=== PATIENT | male | born 1950 | race Caucasian/White ===

== ENCOUNTER → 2017-06-24 | Outpatient (CLI) | payer OTHER ==
[2015-11-13 16:49] VITALS: BP 164/72
--- NOTE | 2017-06-24 09:41 | US ---
History: Right upper quadrant pain Study: Ultrasound of the abdomen Findings: The liver and spleen are normal in size without demonstration of a mass. The gallbladder is normal in size without wall thickening or stone or sludge. The common hepatic duct measures 5.2 mm diameter. The pancreas is unremarkable. The right kidney measures 11 x 5.7 x 4.8 cm and the left kidney measures 11 x 6 x 4.7 cm. There is no hydronephrosis or renal mass. There is no aortic aneurysm. There is no free fluid. Impression: Negative Reported By:
== END ==
LOC: RAD 08:43
PROVIDERS: ATTEND Nurse Practitioner Family
DX: R10.11 Right upper quadrant pain (principal); R10.31 Right lower quadrant pain; R19.09 Other intra-abdominal and pelvic swelling, mass and lump
CPT/HCPCS: 76700

== ENCOUNTER → 2017-07-01 | Outpatient (CLI) | payer OTHER ==
[2015-11-13 16:49] VITALS: BP 164/72
--- NOTE | 2017-07-01 12:01 | CT ---
HISTORY: Right upper quadrant pain, nausea Study: CT abdomen and pelvis without contrast Comparison: CT 11/22/2012, ultrasound 06/24/2017 Technique: Multiple axial images of the abdomen and pelvis were obtained without IV contrast. Dose reduction t echniques including Automated Exposure Control (AEC) and adjustment of mA and kV were utilized. Findings: Please note evaluation is limited without use of IV contrast. The visualized lung bases are clear. There is circumferential thickening of distal esophagus. There i s extensive calcified plaque in the coronary arteries. Normal-sized heart. The liver, spleen, pancre as, kidneys, and adrenal glands are unremarkable in their unenhanced CT appearance. The gallbladder i s normal. No renal calculi or obstructive uropathy identified. No free intraperitoneal air. No evidence of intestinal obstruction or inflammation. The appendix is n ormal. No free fluid is seen. There are colonic diverticula present distally without evidence of acut e inflammation. No free fluid identified. The osseous structures are intact. Calcified plaque is seen in the aorta and branch vessels. No patho logically enlarged lymph nodes are identified. Normal urinary bladder. IMPRESSION: 1. There is thickening of the distal esophagus, correlate clinically. 2. No acute findings within the abdomen or pelvis. Reported By:
== END ==
LOC: RAD 08:48
PROVIDERS: ATTEND Nurse Practitioner Family
DX: R19.09 Other intra-abdominal and pelvic swelling, mass and lump (principal); R10.11 Right upper quadrant pain; R10.31 Right lower quadrant pain
CPT/HCPCS: 74176; A4222

== ENCOUNTER → 2017-07-11 | Outpatient (CLI) | payer OTHER ==
[2015-11-13 16:49] VITALS: BP 164/72
--- NOTE | 2017-07-11 13:48 | NM ---
HISTORY: 66-year-old male with right upper quadrant pain swelling and tenderness. Study: Nuclear medicine HIDA scan with ejection fraction Comparison: None. Technique: Multiple scintigraphic images of the abdomen were obtained the intravenous administration of 5.5 mCi of technetium labeled Choletec. Following distention of the gallbladder with radiotracer, 8 oz of Ensure was given orally. An estima yoana gallbladder ejection fraction was calculated based on the physiologic response of this infusion. Findings: Homogeneous uptake of radiotracer is seen throughout the liver. This intrabiliary ductal system is o bserved normally. The common hepatic and common bile duct grossly appear unremarkable with normal bi liary-bowel transit. The gallbladder is observed to fill normally. After administration of Ensure p.o., low gallbladder ejection fraction of 7% (normal > 35%) was obser jesse. IMPRESSION: Decreased gallbladder ejection fraction: 7 %, compatible with chronic cholecystitis. Reported By:
== END ==
LOC: RAD 10:14
PROVIDERS: ATTEND Nurse Practitioner Family
DX: R10.11 Right upper quadrant pain (principal); R10.31 Right lower quadrant pain; R11.2 Nausea with vomiting, unspecified
CPT/HCPCS: 78227; A9537

== ENCOUNTER → 2017-10-05 | Outpatient (CLI) | payer OTHER ==
[2015-11-13 16:49] VITALS: BP 164/72
[2017-10-05 13:07] LABS: BASOPHILS # (AUTO) 0.1 X10^3/uL (0.0-0.1); BASOPHILS % (AUTO) 1.2 % (0.2-1.0); EOSINOPHILS # (AUTO) 0.2 x10^3/uL (0.0-0.2); HEMOGLOBIN 16.5 g/dL (13.5-18.0); MEAN CORPUSCULAR HEMOGLOBIN 30.8 pg (27.0-34.0); MONOCYTES # (AUTO) 1.2 x10^3/uL (0.3-0.8); RED BLOOD COUNT 5.36 X10^6/uL (4.7-6.0)
[2017-10-05 13:15] LABS: EOSINOPHILS % (AUTO) 1.4 % (0.9-2.9); HEMATOCRIT 47.1 % (42.0-54.0); LYMPHOCYTES # (AUTO) 2.4 X10^3/uL (1.3-2.9); MEAN CORPUSCULAR HGB CONC 35.1 g/dL (33.0-35.0); MEAN CORPUSCULAR VOLUME 87.9 fL (80.0-100.0); MEAN PLATELET VOLUME 7.1 fL (7.4-11.0); MONOCYTES % (AUTO) 10.3 % (0.0-13.0); NEUTROPHILS % (AUTO) 67.1 % (42.0-75.0); PLATELET COUNT 176 X10^3/uL (150.0-450.0); RED CELL DISTRIBUTION WIDTH 17.1 % (11.6-16.5); WHITE BLOOD COUNT 11.9 X10^3/uL (3.6-10.0)
[2017-10-05 13:20] LABS: ALANINE AMINOTRANSFERASE 38 Units/L (12-78); ALBUMIN 3.6 g/dL (3.4-5.0); ALKALINE PHOSPHATASE 55 Units/L (46-116); ASPARTATE AMINO TRANSFERASE 24 Units/L (15-37); BLOOD UREA NITROGEN 10 mg/dL (7-18); CALCIUM 9.2 mg/dL (8.5-10.1); CARBON DIOXIDE 29.7 mmol/L (21-32); CHLORIDE 98 mmol/L (98-107); CREATININE 0.99 mg/dL (0.70-1.30); SODIUM 136 mmol/L (136-145); TOTAL PROTEIN 7.1 g/dL (6.4-8.2); eGFR BLACK RACES > 60 (>60); eGFR NON BLACK RACES > 60 (>60)
== END | disposition home or self-care (01) | DRG 951 ==
LOC: LAB 12:29
DX: Z01.818 Encounter for other preprocedural examination (principal); Z01.810 Encounter for preprocedural cardiovascular examination; Z79.899 Other long term (current) drug therapy; Z11.8 Encounter for screening for other infectious and parasitic diseases; I10 Essential (primary) hypertension; E11.9 Type 2 diabetes mellitus without complications; G47.39 Other sleep apnea; I51.9 Heart disease, unspecified; E78.00 Pure hypercholesterolemia, unspecified; N20.0 Calculus of kidney; K27.9 Peptic ulcer, site unspecified, unspecified as acute or chronic, without hemorrhage or perforation; I25.10 Atherosclerotic heart disease of native coronary artery without angina pectoris; M06.80 Other specified rheumatoid arthritis, unspecified site; Z86.14 Personal history of Methicillin resistant Staphylococcus aureus infection
CPT/HCPCS: 36415; 80053; 85025; 87640; 87641; 93005; 93010

== ENCOUNTER 2019-03-24 13:42 | Observation (INO) ==
[2019-03-24 13:49] VITALS: BMI 22.6
[2019-03-24] MEDS ORDERED: ZOFRAN INJ 4 MG VIAL IVP ONE (14:01)
[2019-03-24] MEDS ORDERED: ZOFRAN INJ 4 MG VIAL ONE (14:19)
--- NOTE | 2019-03-24 14:29 | DR.GENAD ---
HPI Time Seen Time Seen by Provider: 03/24/19 14:01 PCP Primary Care Physician: tim saavedra Complaint/Symptoms Chief Complaint Doctors Comments: A 68 y/o female presenting with vomiting for past few days. He has a hx. of constipation and had taken some Linzess yesterday. Diarrhea started yesterday. He has some all over abd. pain but no fever. Chief Complaint:: patient has been constipated for several months, and has been vomiting and diahrrea for several days. Nurses notes reviewed Nurses Notes Review: Yes Source History Provided: Patient Mode of Arrival Mode of Arrival: Ambulatory Timing Onset of Chief Complaint: 03/21/19 Came on: Gradually Modifying Factors Worsens:: nothing Improves:: nothing PMH PMH Past Medical History: Yes Past Medical History: Arthritis, Coronary Artery Disease, Diabetes, Hypertension, Kidney Stones and PR Past Surgical History: Yes Surgical History: Angioplasty/Stents and Joint Replacement Family History History of Family Medical Conditions: Yes Family Medical History: PR, Sudden Cardiac and Hypertension Social History Does patient currently use any type of tobacco product: No Have you used tobacco products in the last 12 months: No Type of Tobacco Use: None Does any household member use tobacco: No Alcohol Use: Rarely Do you use any recreational Drugs:: No Lives With: Family Lives Where: Home infectious screening In the last 2 months have you had wt loss of >10#?: NO Have you had fever, night sweats or hemotysis?: No Have you traveled outside the country in the last 6 months?: No Isolation: Standard ROS Review of Systems Constitutional: No Symptoms Reported Eyes: No Symptoms Reported ENTM: No Symptoms Reported Respiratoy: No Symptoms Reported Cardiovascular: No Symptoms Reported Gastrointestinal/Abdominal: Abdominal Pain, Constipation, Diarrhea, Nausea and Vomiting Genitourinary: No Symptoms Reported Neurological: No Symptoms Reported Musculoskeletal: No Symptoms Reported Integumentary: No Symptoms Reported Hematologic/Lymphatic: No Symptoms Reported Endocrine: No Symptoms Reported Psychiatric: No Symptoms Reported PE Vital Signs Vitals: Temperature 98.6 F Pulse Rate 130 Respiratory Rate 18 Blood Pressure [Right Arm] 147/65 Blood Pressure [Left Arm] 115/58 Blood Pressure 153/103 O2 Sat by Pulse Oximetry 98 General Limitations: No Limitations General Appearance: Alert and In No Apparent Distress Head Head Exam: Normal Inspection, Atraumatic and Normocephalic Eyes Eye exam: Normal Appearance and EOMI ENT ENT Exam: Normal Exam, Normal Oropharynx and Normal External Ear Exam Neck Neck Exam: Normal Inspection, Full ROM and Trachea Midline Chest Chest Inspection: Normal Inspection and Symmetric Chest Wall Rise Respiratory Respiratory Exam: Normal Lung Sounds Bilat Cardiovascular Cardiovascular Exam: Regular Rate, Normal Rhythm, Normal Heart Sounds, +S1 and +S2 Abdominal Exam Abdominal Exam: Normal Inspection, Normal Bowel Sounds, Soft and Tenderness (mild diffusely); negative Distention, Guarding, Rebound, Rigidity, Dimnished Bowel Sounds, Hyperactive Bowel Sounds, Hypoactive Bowel Sounds, Organomegaly, Trauma, Incision, Ascites, Mass, Bruit, Pulsatile Mass and Hernia Extremities Extremities Exam: Normal Inspection and Full ROM Back Back Exam: Normal Inspection Neurologic Neurological Exam: Alert and Oriented X3 Psychiatric Psychiatric Exam: Normal Affect and Normal Mood Skin Skin Exam: Dry and Normal Color COURSE Reevaluation 1st: Improved 2nd: Improved Education/Counseling Education/Counseling: Patient, Family, Education and Counseling Educated On: Treatment, Diagnosis, Prognosis and Needs for Follow Up ROR Labs Reviewed Laboratory Results Reviewed?: Yes Result Diagrams: 03/24/19 14:06 03/24/19 14:06 Laboratory: WBC 12.6 X10^3/uL (3.6-10.0) H 03/24/19 14:06 RBC 6.62 X10^6/uL (4.7-6.0) H 03/24/19 14:06 Hgb 20.3 g/dL (13.5-18.0) H* 03/24/19 14:06 Hct 57.8 % (42.0-54.0) H* 03/24/19 14:06 MCV 87.3 fL (80.0-100.0) 03/24/19 14:06 MCH 30.6 pg (27.0-34.0) 03/24/19 14:06 MCHC 35.1 g/dL (33.0-35.0) H 03/24/19 14:06 RDW 17.5 % (11.6-16.5) H 03/24/19 14:06 Plt Count 163 X10^3/uL (150.0-450.0) 03/24/19 14:06 MPV 6.8 fL (7.4-11.0) L 03/24/19 14:06 Neut % (Auto) 77.8 % (42.0-75.0) H 03/24/19 14:06 Lymph % (Auto) 10.2 % (21.0-51.0) L 03/24/19 14:06 [place] % (Auto) 11.2 % (0.0-13.0) 03/24/19 14:06 Eos % (Auto) 0.2 % (0.9-2.9) L 03/24/19 14:06 Baso % (Auto) 0.6 % (0.2-1.0) 03/24/19 14:06 Neut # (Auto) 9.8 x10^3/uL (2.2-4.8) H 03/24/19 14:06 Lymph # (Auto) 1.3 X10^3/uL (1.3-2.9) 03/24/19 14:06 [place] # (Auto) 1.4 x10^3/uL (0.3-0.8) H 03/24/19 14:06 Eos # (Auto) 0.0 x10^3/uL (0.0-0.2) 03/24/19 14:06 Baso # (Auto) 0.1 X10^3/uL (0.0-0.1) 03/24/19 14:06 Absolute Nucleated RBC 0.5 /100WBC 03/24/19 14:06 Sodium 130 mmol/L (136-145) L 03/24/19 14:06 Corrected Sodium 133 mmol/L (136-145) L 03/24/19 14:06 Potassium 4.1 mmol/L (3.5-5.1) 03/24/19 14:06 Chloride 95 mmol/L (98-107) L 03/24/19 14:06 Carbon Dioxide 23.1 mmol/L (21-32) 03/24/19 14:06 BUN 19 mg/dL (7-18) H 03/24/19 14:06 Creatinine 1.22 mg/dL (0.70-1.30) 03/24/19 14:06 Est GFR (MDRD) Af Amer > 60 (>60) 03/24/19 14:06 Est GFR (MDRD) Non-Af > 60 (>60) 03/24/19 14:06 Glucose 217 mg/dL (65-99) H 03/24/19 14:06 Calcium 9.2 mg/dL (8.5-10.1) 03/24/19 14:06 Corrected Calcium TNP 03/24/19 14:06 Total Bilirubin 0.70 mg/dL (0.2-1.0) 03/24/19 14:06 AST 24 Units/L (15-37) 03/24/19 14:06 ALT 26 Units/L (12-78) 03/24/19 14:06 Alkaline Phosphatase 68 Units/L (46-116) 03/24/19 14:06 Total Protein 7.8 g/dL (6.4-8.2) 03/24/19 14:06 Albumin 3.7 g/dL (3.4-5.0) 03/24/19 14:06 Globulin 4.1 g/dL (2.5-4.5) 03/24/19 14:06 Albumin/Globulin Ratio 0.9 Ratio (1.1-2.1) L 03/24/19 14:06 Amylase 87 Units/L (25-115) 03/24/19 14:06 Lipase 216 Units/L (73-393) 03/24/19 14:06 Other Results Comments: Non contrasted CT Scan of the abd./pelvis: No acute inflamma tory process. Distal colonic diverticulosis without diverticulitis. Opioid Opioid Risk Tool Total: 0 Total Score Risk Category: Low Risk Copyright: Gabe DURHAM predicting aberrant behaviors Diagnosis Discharge Problem: Abdominal pain Qualifiers: Abdominal location: generalized Qualified Code(s): R10.84 - Generalized abdominal pain Diarrhea Qualifiers: Diarrhea type: functional diarrhea Qualified Code(s): K59.1 - Functional diarrhea Diabetes mellitus type 1 Qualifiers: Diabetes mellitus complication status: without complication Qualified Code(s): E10.9 - Type 1 diabetes mellitus without complications Instructions Forms: Excuse From Work
[2019-03-24 14:34] LABS: BASOPHILS # (AUTO) 0.1 X10^3/uL (0.0-0.1); BASOPHILS % (AUTO) 0.6 % (0.2-1.0); EOSINOPHILS % (AUTO) 0.2 % (0.9-2.9); LYMPHOCYTES # (AUTO) 1.3 X10^3/uL (1.3-2.9); LYMPHOCYTES % (AUTO) 10.2 % (21.0-51.0); MEAN CORPUSCULAR HEMOGLOBIN 30.6 pg (27.0-34.0); MEAN CORPUSCULAR HGB CONC 35.1 g/dL (33.0-35.0); MEAN CORPUSCULAR VOLUME 87.3 fL (80.0-100.0); MEAN PLATELET VOLUME 6.8 fL (7.4-11.0); MONOCYTES # (AUTO) 1.4 x10^3/uL (0.3-0.8); MONOCYTES % (AUTO) 11.2 % (0.0-13.0); NEUTROPHILS # (AUTO) 9.8 x10^3/uL (2.2-4.8); NEUTROPHILS % (AUTO) 77.8 % (42.0-75.0); PLATELET COUNT 163 X10^3/uL (150.0-450.0); RED BLOOD COUNT 6.62 X10^6/uL (4.7-6.0); RED CELL DISTRIBUTION WIDTH 17.5 % (11.6-16.5); WHITE BLOOD COUNT 12.6 X10^3/uL (3.6-10.0)
[2019-03-24 14:36] LABS: HEMOGLOBIN 20.3 g/dL (13.5-18.0)
[2019-03-24 14:37] LABS: HEMATOCRIT 57.8 % (42.0-54.0)
[2019-03-24 14:45] LABS: ALANINE AMINOTRANSFERASE 26 Units/L (12-78); ALBUMIN 3.7 g/dL (3.4-5.0); ALKALINE PHOSPHATASE 68 Units/L (46-116); ASPARTATE AMINO TRANSFERASE 24 Units/L (15-37); BLOOD UREA NITROGEN 19 mg/dL (7-18); CALCIUM 9.2 mg/dL (8.5-10.1); CARBON DIOXIDE 23.1 mmol/L (21-32); CHLORIDE 95 mmol/L (98-107); COR NA(FOR HYPERGLY) 133 mmol/L (136-145); CREATININE 1.22 mg/dL (0.70-1.30); SODIUM 130 mmol/L (136-145); TOTAL PROTEIN 7.8 g/dL (6.4-8.2); eGFR NON BLACK RACES > 60 (>60)
--- NOTE | 2019-03-24 14:48 | CT ---
CT abdomen and pelvis without contrast Indication: Nausea, vomiting, diarrhea Technique: Helical CT images of the abdomen and pelvis were obtained without IV contrast. Reformatted images in the coronal and sagittal planes were also generated for review. Comparison: 07/01/2017 Findings: Lung bases are clear. Degenerative changes throughout the spine noted. No acute osseous abnormality is identified. Evaluation for soft tissue pathology is limited without IV contrast. Accounting for this, the unenhanced liver, spleen, pancreas, adrenals and kidneys are unremarkable. No urolithiasis or obstructive uropathy. Gallbladder is absent. Evaluation of the GI tract is limited without oral contrast. Given these limitations, there is circumferential thickening of the visualized distal esophagus, unchanged since prior exam. There is mild distal colonic diverticulosis without diverticulitis. The remainder of the GI tract is without obstruction or gross inflammation. The appendix is normal. The abdominal aorta is moderately calcified without aneurysm. The collapsed urinary bladder is grossly normal without stones. Prostate is mildly prominent. No free air, free fluid or bulky lymphadenopathy is identified. Impression: No acute inflammatory process identified within the abdomen or pelvis, within the limitations of an exam performed without intravenous or oral contrast. Unchanged circumferential thickening of the visualized distal esophagus, which may be on the basis of esophagitis. Correlate clinically. Distal colonic diverticulosis without diverticulitis and additional findings as above. Reported By:
[2019-03-24] MEDS ORDERED: NS 1000 ML 1,000 ML IV SCH (15:00)
[2019-03-24 15:38] LABS: AMYLASE 87 Units/L (25-115); LIPASE 216 Units/L (73-393)
[2019-03-24] MEDS ORDERED: NUBAIN INJ 10 ONE (16:15)
[2019-03-24] MEDS ORDERED: NUBAIN INJ 10 IVP ONE (16:19)
[2019-03-24] MEDS ORDERED: BENADRYL INJ 50 MG VIAL ONE (16:54)
[2019-03-24] MEDS ORDERED: ATIVAN INJ 2 MG VIAL ONE (17:24)
[2019-03-24] MEDS ORDERED: ATIVAN INJ 2 MG VIAL IVP ONE ×2 (17:54→18:06)
[2019-03-24] MEDS ORDERED: ZOFRAN INJ 4 MG VIAL IVP PRN (18:08)
[2019-03-24] MEDS ORDERED: NUBAIN INJ 10 IVP PRN (18:08)
[2019-03-24] MEDS ORDERED: NS 1000 ML 1,000 ML ONE (18:12)
[2019-03-24] MEDS: NS 1000 ML 1,000 ML IV SCH (18:22)
[2019-03-24 18:46] LABS: ALANINE AMINOTRANSFERASE 23 Units/L (12-78); ALBUMIN 3.4 g/dL (3.4-5.0); ALKALINE PHOSPHATASE 59 Units/L (46-116); ASPARTATE AMINO TRANSFERASE 20 Units/L (15-37); BLOOD UREA NITROGEN 16 mg/dL (7-18); CALCIUM 8.4 mg/dL (8.5-10.1); CARBON DIOXIDE 22.7 mmol/L (21-32); CHLORIDE 101 mmol/L (98-107); COR NA(FOR HYPERGLY) 135 mmol/L (136-145); CREATININE 1.09 mg/dL (0.70-1.30); SODIUM 134 mmol/L (136-145); eGFR NON BLACK RACES > 60 (>60)
[2019-03-24 19:04] LABS: BASOPHILS % (AUTO) 0.4 % (0.2-1.0); EOSINOPHILS % (AUTO) 0.1 % (0.9-2.9); LYMPHOCYTES # (AUTO) 1.1 X10^3/uL (1.3-2.9); LYMPHOCYTES % (AUTO) 10.6 % (21.0-51.0); MEAN CORPUSCULAR HEMOGLOBIN 30.2 pg (27.0-34.0); MEAN CORPUSCULAR HGB CONC 34.8 g/dL (33.0-35.0); MEAN CORPUSCULAR VOLUME 86.9 fL (80.0-100.0); MEAN PLATELET VOLUME 6.9 fL (7.4-11.0); MONOCYTES # (AUTO) 1.1 x10^3/uL (0.3-0.8); MONOCYTES % (AUTO) 10.9 % (0.0-13.0); PLATELET COUNT 143 X10^3/uL (150.0-450.0); RED BLOOD COUNT 6.47 X10^6/uL (4.7-6.0); RED CELL DISTRIBUTION WIDTH 17.6 % (11.6-16.5); WHITE BLOOD COUNT 10.2 X10^3/uL (3.6-10.0)
[2019-03-24 19:07] LABS: HEMATOCRIT 56.3 % (42.0-54.0); HEMOGLOBIN 19.6 g/dL (13.5-18.0)
[2019-03-24] MEDS: RESTORIL CAP 15 MG PO PRN (21:29)
[2019-03-25] MEDS: NS 1000 ML 1,000 ML IV SCH ×3 (05:17→18:11)
[2019-03-25 05:23] LABS: BASOPHILS # (AUTO) 0.1 X10^3/uL (0.0-0.1); BASOPHILS % (AUTO) 0.5 % (0.2-1.0); EOSINOPHILS % (AUTO) 0.5 % (0.9-2.9); LYMPHOCYTES % (AUTO) 10.1 % (21.0-51.0); MEAN CORPUSCULAR HEMOGLOBIN 30.2 pg (27.0-34.0); MEAN CORPUSCULAR HGB CONC 34.4 g/dL (33.0-35.0); MEAN PLATELET VOLUME 7.7 fL (7.4-11.0); MONOCYTES # (AUTO) 1.2 x10^3/uL (0.3-0.8); MONOCYTES % (AUTO) 12.9 % (0.0-13.0); NEUTROPHILS # (AUTO) 7.3 x10^3/uL (2.2-4.8); PLATELET COUNT 125 X10^3/uL (150.0-450.0); RED BLOOD COUNT 6.79 X10^6/uL (4.7-6.0); RED CELL DISTRIBUTION WIDTH 17.4 % (11.6-16.5); WHITE BLOOD COUNT 9.6 X10^3/uL (3.6-10.0)
[2019-03-25 05:34] LABS: ALANINE AMINOTRANSFERASE 20 Units/L (12-78); ALBUMIN 3.2 g/dL (3.4-5.0); ALKALINE PHOSPHATASE 56 Units/L (46-116); BLOOD UREA NITROGEN 14 mg/dL (7-18); CALCIUM 8.4 mg/dL (8.5-10.1); CARBON DIOXIDE 21.1 mmol/L (21-32); CHLORIDE 101 mmol/L (98-107); COR NA(FOR HYPERGLY) 133 mmol/L (136-145); CREATININE 0.75 mg/dL (0.70-1.30); SODIUM 132 mmol/L (136-145); TOTAL PROTEIN 7.2 g/dL (6.4-8.2); eGFR NON BLACK RACES > 60 (>60)
[2019-03-25 05:48] LABS: ASPARTATE AMINO TRANSFERASE 35 Units/L (15-37); HEMATOCRIT 59.7 % (42.0-54.0); HEMOGLOBIN 20.5 g/dL (13.5-18.0); PLATELET MORPHOLOGY COMMENT NORMAL (NORMAL)
[2019-03-25] MEDS ORDERED: PERCOCET TAB 5/325 MG PO PRN (08:05)
[2019-03-25] MEDS ORDERED: PLAVIX PO SCH (09:00)
[2019-03-25] MEDS: COREG TAB 12.5 MG PO SCH ×3 (09:42→20:49)
[2019-03-25] MEDS: [UNRECOGNIZED DRUG - OTHER] PO SCH (09:42)
[2019-03-25] MEDS: FOLIC ACID TAB 1 MG PO SCH ×2 (09:42→11:01)
[2019-03-25] MEDS: GLUC CONDR OM3 DHA EPA FISH ST PO SCH (09:42)
[2019-03-25] MEDS: COLACE CAP 100 MG PO SCH ×2 (09:42→20:48)
[2019-03-25] MEDS: ZESTRIL TAB 10 MG PO SCH ×2 (09:43→11:02)
[2019-03-25] MEDS: ISOSORBIDE MONONITRATE ER PO SCH ×3 (09:43→20:48)
[2019-03-25] MEDS: NORVASC TAB 5 MG PO SCH ×2 (09:43→11:01)
[2019-03-25] MEDS: ZYLOPRIM PO SCH ×2 (09:44→11:02)
[2019-03-25] MEDS: PROTONIX INJ 40 MG VIAL IVP SCH ×2 (09:48→20:50)
[2019-03-25] MEDS ORDERED: DIPRIVAN VIAL ONE (14:01)
[2019-03-25] MEDS ORDERED: DIPRIVAN VIAL 20 ML ONE (15:04)
[2019-03-25] MEDS ORDERED: STERILE WATER IRRIGATION ONE (15:51)
--- NOTE | 2019-03-25 16:23 | OR.IMMED ---
Immediate Post-Op Note - Immediate Post-Op Note Pre-Op Diagnosis: abdominal pain . dysphagia . abnormal CT with thickening of lower esophagus Post-Op Diagnosis: esophagitis grade ll. small esophageal vaices . moderate gastritis . no neoplasm or ulcers .. Procedure: EGD with Bx Surgeon/Breakdown Man: Kali Specimens Removed: bx's from the antrum, fundus , duodenum. Complications: none Condition: Stable
[2019-03-25 17:18] LABS: CRYPTOSPORIDIUM PARVUM ANTIGEN NEGATIVE (NEGATIVE); GIARDIA LAMBLIA ANTIGEN NEGATIVE (NEGATIVE)
--- NOTE | 2019-03-25 18:25 | DR.H&P ---
H&P - History & Physical for Day of: H&P Date: 03/24/19 - Chief Complaint Chief Complaint: abdominal pain n/v, weakness - History of Present Illness History of Present Illness: 68 WM ER ADMISSION AFTER PRESENTING WITH CO ABDOMINAL PAIN WITH INTRACTABLE N/V. PT CO RECENT BOUT OF CONSTIPATION WHICH RESOLVED WITH TAKING LINZESS, THEN HAD ONSET OF N/V AND ABDOMINAL PAIN. PT HAD PMH OF ADVANCED CAD, DM, HTN, RA. PT REPORTS HE WAS STARTED ON TRULICITY FOR BLOOD SUGAR CONTROL AND CO WEIGHT LOSS AND UPPER ABDOMINAL PAIN. PT HAD CT ON ADMISSION WITH DISTAL ESOPHAGITIS. PT WAS ADMITTED FOR EVALUATION AND TREATMENT OF ACUTE ILLNESS. - Past Medical History Past Medical History: Arthritis, Coronary Artery Disease, Diabetes, GERD, Hypertension, Kidney Stones, [place] Additional Medical History: POLYCYTHEMIA - Past Surgical History Surgical History: Angioplasty/Stents, Appendectomy, Ortho Surgery - Family History Family Medical History: [place] - Social History Does patient currently use any type of tobacco product: No Have you used tobacco products in the last 12 months: No Type of Tobacco Use: None Does any household member use tobacco: No Alcohol Use: None Drug Use: None Risks, benefits, and alternatives of opioids discussed: Yes - Medications Home Medications: nalbuphine [From Nubain] Adverse Reaction (Verified 03/24/19 17:31) CONTINUE taking the following medications [id number] [Glucosamine Chondroitin PLUS] 1 tab PO DAILY 03/24/19 [History] insulin glargine [Lantus U-100 Insulin] 30 units SUBCUT HS 03/24/19 [History] oxycodone-acetaminophen 1 tab PO TID PRN 03/24/19 [History] rosuvastatin 40 mg PO QDAY 03/24/19 [History] alprazolam 0.5 mg PO HS PRN 03/25/19 [History] fentanyl 75 mcg TOPICAL Q72H 03/25/19 [History] - Review of Systems Constitutional: Weakness Eyes: No Symptoms Reported ENT: No Symptoms Reported Respiratory: denies: Shortness of Breath Cardiovascular: denies: Chest Pain, Edema Gastrointestinal: Nausea, Vomiting, Abdominal Pain Genitourinary: No Symptoms Reported Musculoskeletal: Back Pain, Leg Pain Skin: Bruising Neurological: Weakness - Physical Exam Vital Signs: Temperature 98.0 F Pulse Rate [Left Radial] 103 Pulse Rate 94 Respiratory Rate 20 Blood Pressure [Right Arm] 158/93 Blood Pressure [Left Arm] 169/93 Blood Pressure 94/53 O2 Sat by Pulse Oximetry 100 Oriented: Normal Eyes: Normal, Diplopia Nose: Normal Throat: Normal Respiratory: RLL Diminished, LLL Diminished Cardiovascular: Normal : Normal Auscultation: Bowel Sounds: Increased Tenderness: Diffuse, RUQ, LUQ, Epigastric Skin: Decreased Turgur Musculoskeletal: Right, Left, Hand, Knee, Back:Lumbar, Swelling, Tender, Crepitance Psychiatric: Anxiety Affect: Anxious Speech Pattern: Clear, Appropriate - Assessment/Plan (1) Esophagitis Status: Acute Plan: ADMIT, CT ABD PELVIS ON ADMISSION, AMYLASE AND LIPASE ON ADMISSION. BP AND LIPID CONTROL, BS CONTROL. NPO FOR GI CONSULTATION. HOLD PLAVIX, VERIFY HOME MEDICATION, PAIN CONTROL. OCCULT STOOL, CXR ON ADMISSION. NAUSEA MANAGMENT (2) GERD without esophagitis Status: Acute (3) Polycythemia Status: Acute (4) CAD (coronary artery disease) Status: Chronic (5) Type II diabetes mellitus, uncontrolled Status: Chronic (6) Benign essential HTN Status: Chronic (7) DASHA (generalized anxiety disorder) Status: Chronic - Allergies Allergies/Adverse Reactions: Allergies Allergy/AdvReac Type Severity Reaction Status Date / Time nalbuphine [From Nubain] AdvReac Verified 03/24/19 17:31
--- NOTE | 2019-03-25 18:32 | PCM.PROG ---
Progress Note - Progress Note for Day of Date of Exam: 03/25/19 - Subjective Subjective: 68 WM ER ADMISSION ON 03/24 WITH INTRACTABLE NV, ESOPHAGITIS. PT WAS STARTED ON IV PROTONIX, NPO FOR GI CONSULT PER DR ZHENG THIS AM. GENTLE IV HYDRATION AND BLOOD SUGAR CONTROL, OCCULT STOOL. PT CONTINUES TO CO UPPER ABDOMINAL TENDERNESS AND NAUSEA, NO VOMTING SINCE ADMISSION PT REPORTS "I HAVE NOT ATE ANYTHING TO THROW UP" REVIEWED LABS AND CT RESULTS. CT ABD PELVIS WITH CONTRAST AND EGD ORDERED. - Past Medical Family Social History Past Med/Fam/Surg Hx: No changes since H&P Allergies: Allergies nalbuphine [From Nubain] Adverse Reaction (Verified 03/24/19 17:31) - Review of Systems ROS: No change since H&P - Vital Signs and I&O's Vital Signs: Temperature 98.0 F Pulse Rate [Left Radial] 103 Pulse Rate 94 Respiratory Rate 20 Blood Pressure [Right Arm] 158/93 Blood Pressure [Left Arm] 169/93 Blood Pressure 94/53 O2 Sat by Pulse Oximetry 100 Intake and Output: Intake & Output 03/23/19 03/24/19 03/25/19 03/26/19 11:59 11:59 11:59 11:59 Intake Total 1695 / 1695 800 / 800 Output Total 900 / 900 Balance 795 / 795 800 / 800 - Physical Exam Oriented: Normal Eyes: Normal, Diplopia Nose: Normal Throat: Normal Respiratory: Diminished Cardiovascular: Normal : Normal Auscultation: Bowel Sounds: Increased Tenderness: Diffuse, RUQ, LUQ, Epigastric Skin: Decreased Turgur Musculoskeletal: Right, Left, Hand, Knee, Back:Lumbar, Swelling, Tender, Crepitance Psychiatric: Anxiety Affect: Anxious Speech Pattern: Clear, Appropriate - Laboratory and Diagnostics Result Diagrams: 03/25/19 04:03 03/25/19 04:03 Labs: Laboratory WBC 9.6 X10^3/uL (3.6-10.0) 03/25/19 04:03 RBC 6.79 X10^6/uL (4.7-6.0) H 03/25/19 04:03 Hgb 20.5 g/dL (13.5-18.0) H* 03/25/19 04:03 Hct 59.7 % (42.0-54.0) H* 03/25/19 04:03 MCV 88.0 fL (80.0-100.0) 03/25/19 04:03 MCH 30.2 pg (27.0-34.0) 03/25/19 04:03 MCHC 34.4 g/dL (33.0-35.0) 03/25/19 04:03 RDW 17.4 % (11.6-16.5) H 03/25/19 04:03 Plt Count 125 X10^3/uL (150.0-450.0) L 03/25/19 04:03 Plt Count Comment Adequate (ADEQUATE) 03/25/19 04:03 MPV 7.7 fL (7.4-11.0) 03/25/19 04:03 Neut % (Auto) 76.0 % (42.0-75.0) H 03/25/19 04:03 Lymph % (Auto) 10.1 % (21.0-51.0) L 03/25/19 04:03 [place] % (Auto) 12.9 % (0.0-13.0) 03/25/19 04:03 Eos % (Auto) 0.5 % (0.9-2.9) L 03/25/19 04:03 Baso % (Auto) 0.5 % (0.2-1.0) 03/25/19 04:03 Neut # (Auto) 7.3 x10^3/uL (2.2-4.8) H 03/25/19 04:03 Lymph # (Auto) 1.0 X10^3/uL (1.3-2.9) L 03/25/19 04:03 [place] # (Auto) 1.2 x10^3/uL (0.3-0.8) H 03/25/19 04:03 Eos # (Auto) 0.0 x10^3/uL (0.0-0.2) 03/25/19 04:03 Baso # (Auto) 0.1 X10^3/uL (0.0-0.1) 03/25/19 04:03 Absolute Nucleated RBC 0.2 /100WBC 03/25/19 04:03 Plt Morphology Comment Normal (NORMAL) 03/25/19 04:03 RBC Morphology Normal (NORMAL) 03/25/19 04:03 Sodium 132 mmol/L (136-145) L 03/25/19 04:03 Corrected Sodium 133 mmol/L (136-145) L 03/25/19 04:03 Potassium 4.8 mmol/L (3.5-5.1) 03/25/19 04:03 Chloride 101 mmol/L (98-107) 03/25/19 04:03 Carbon Dioxide 21.1 mmol/L (21-32) 03/25/19 04:03 BUN 14 mg/dL (7-18) 03/25/19 04:03 Creatinine 0.75 mg/dL (0.70-1.30) 03/25/19 04:03 Est GFR (MDRD) Af Amer > 60 (>60) 03/25/19 04:03 Est GFR (MDRD) Non-Af > 60 (>60) 03/25/19 04:03 Glucose 128 mg/dL (65-99) H 03/25/19 04:03 Calcium 8.4 mg/dL (8.5-10.1) L 03/25/19 04:03 Corrected Calcium 9.0 mg/dL (8.5-10.1) 03/25/19 04:03 Total Bilirubin 0.70 mg/dL (0.2-1.0) 03/25/19 04:03 AST 35 Units/L (15-37) 03/25/19 04:03 ALT 20 Units/L (12-78) 03/25/19 04:03 Alkaline Phosphatase 56 Units/L (46-116) 03/25/19 04:03 Total Protein 7.2 g/dL (6.4-8.2) 03/25/19 04:03 Albumin 3.2 g/dL (3.4-5.0) L 03/25/19 04:03 Globulin 4.0 g/dL (2.5-4.5) 03/25/19 04:03 Albumin/Globulin Ratio 0.8 Ratio (1.1-2.1) L 03/25/19 04:03 Amylase 87 Units/L (25-115) 03/24/19 14:06 Lipase 216 Units/L (73-393) 03/24/19 14:06 Stool Description 100g,unformed,mucoid 03/25/19 16:06 Stl Occult Blood (IFOB) Positive (NEGATIVE) A 03/25/19 16:06 Stool for White Cells Positive (NEGATIVE) A 03/25/19 16:06 Stl C. diff Tox B Gene Negative (NEGATIVE) 03/25/19 16:06 Stl C. diff [id number] Negative (NEGATIVE) 03/25/19 16:06 Cryptosporid parvum Ag Negative (NEGATIVE) 03/25/19 16:06 Giardia lamblia Ag Negative (NEGATIVE) 03/25/19 16:06 Tissue Pathology To follow 03/25/19 15:24 - Plan (1) Esophagitis Status: Acute Plan: REPEAT AM LABS, AMYLASE AND LIPASE ON ADMISSION. BP AND LIPID CONTROL, BS CONTROL. NPO FOR GI CONSULTATION. HOLD PLAVIX, VERIFY HOME MEDICATION, PAIN CONTROL. OCCULT STOOL, CXR ON ADMISSION. NAUSEA MANAGMENT (2) GERD without esophagitis Status: Acute (3) Polycythemia Status: Acute (4) CAD (coronary artery disease) Status: Chronic (5) Type II diabetes mellitus, uncontrolled Status: Chronic (6) Benign essential HTN Status: Chronic (7) DASHA (generalized anxiety disorder) Status: Chronic
[2019-03-25] MEDS: SNACK - Diabetic Appropriate PO SCH (20:48)
[2019-03-25] MEDS: CARAFATE ORAL SUSP PO SCH (20:49)
[2019-03-25] MEDS: LANTUS SC SCH (20:49)
[2019-03-25] MEDS: RESTORIL CAP 15 MG PO PRN (20:50)
[2019-03-25] MEDS: HumuLIN R SC PRN (20:50)
[2019-03-26] MEDS: NS 1000 ML 1,000 ML IV SCH ×2 (02:56→15:11)
[2019-03-26 05:27] LABS: BASOPHILS % (AUTO) 0.5 % (0.2-1.0); EOSINOPHILS # (AUTO) 0.1 x10^3/uL (0.0-0.2); EOSINOPHILS % (AUTO) 0.9 % (0.9-2.9); LYMPHOCYTES # (AUTO) 1.2 X10^3/uL (1.3-2.9); LYMPHOCYTES % (AUTO) 17.2 % (21.0-51.0); MEAN CORPUSCULAR HEMOGLOBIN 30.6 pg (27.0-34.0); MEAN CORPUSCULAR HGB CONC 35.3 g/dL (33.0-35.0); MEAN CORPUSCULAR VOLUME 86.8 fL (80.0-100.0); MEAN PLATELET VOLUME 7.4 fL (7.4-11.0); MONOCYTES # (AUTO) 1.2 x10^3/uL (0.3-0.8); NEUTROPHILS # (AUTO) 4.4 x10^3/uL (2.2-4.8); NEUTROPHILS % (AUTO) 64.4 % (42.0-75.0); PLATELET COUNT 134 X10^3/uL (150.0-450.0); RED BLOOD COUNT 5.53 X10^6/uL (4.7-6.0); RED CELL DISTRIBUTION WIDTH 17.1 % (11.6-16.5); WHITE BLOOD COUNT 6.9 X10^3/uL (3.6-10.0)
[2019-03-26] MEDS: CARAFATE ORAL SUSP PO SCH ×4 (05:32→20:32)
[2019-03-26 05:41] LABS: ALANINE AMINOTRANSFERASE 16 Units/L (12-78); ALBUMIN 2.8 g/dL (3.4-5.0); ALKALINE PHOSPHATASE 46 Units/L (46-116); ASPARTATE AMINO TRANSFERASE 21 Units/L (15-37); BLOOD UREA NITROGEN 14 mg/dL (7-18); CALCIUM 7.7 mg/dL (8.5-10.1); CARBON DIOXIDE 22.1 mmol/L (21-32); CHLORIDE 104 mmol/L (98-107); COR CA(FOR HYPOALB) 8.7 mg/dL (8.5-10.1); CREATININE 0.88 mg/dL (0.70-1.30); SODIUM 137 mmol/L (136-145); TOTAL PROTEIN 6.1 g/dL (6.4-8.2); eGFR NON BLACK RACES > 60 (>60)
[2019-03-26 06:07] LABS: HEMOGLOBIN 16.9 g/dL (13.5-18.0)
[2019-03-26] MEDS: COLACE CAP 100 MG PO SCH ×2 (09:30→20:33)
[2019-03-26] MEDS: ISOSORBIDE MONONITRATE ER PO SCH ×2 (09:30→20:34)
[2019-03-26] MEDS: PROTONIX INJ 40 MG VIAL IVP SCH ×2 (09:30→20:32)
[2019-03-26] MEDS: ZYLOPRIM PO SCH (09:31)
[2019-03-26] MEDS: COREG TAB 12.5 MG PO SCH ×2 (09:31→20:34)
[2019-03-26] MEDS: FOLIC ACID TAB 1 MG PO SCH (09:31)
[2019-03-26] MEDS: NORVASC TAB 5 MG PO SCH (09:31)
[2019-03-26] MEDS: ZESTRIL TAB 10 MG PO SCH (09:31)
[2019-03-26 11:57] LABS: BASOPHILS % (AUTO) 0.7 % (0.2-1.0); EOSINOPHILS # (AUTO) 0.1 x10^3/uL (0.0-0.2); HEMATOCRIT 53.7 % (42.0-54.0); HEMOGLOBIN 18.6 g/dL (13.5-18.0); LYMPHOCYTES # (AUTO) 1.3 X10^3/uL (1.3-2.9); LYMPHOCYTES % (AUTO) 17.9 % (21.0-51.0); MEAN CORPUSCULAR HEMOGLOBIN 30.4 pg (27.0-34.0); MEAN CORPUSCULAR HGB CONC 34.7 g/dL (33.0-35.0); MEAN CORPUSCULAR VOLUME 87.6 fL (80.0-100.0); MEAN PLATELET VOLUME 6.9 fL (7.4-11.0); MONOCYTES # (AUTO) 1.2 x10^3/uL (0.3-0.8); MONOCYTES % (AUTO) 17.4 % (0.0-13.0); NEUTROPHILS # (AUTO) 4.4 x10^3/uL (2.2-4.8); PLATELET COUNT 158 X10^3/uL (150.0-450.0); RED BLOOD COUNT 6.13 X10^6/uL (4.7-6.0); RED CELL DISTRIBUTION WIDTH 17.5 % (11.6-16.5)
[2019-03-26] MEDS: [UNRECOGNIZED DRUG - OTHER] PO SCH (12:09)
[2019-03-26] MEDS: GLUC CONDR OM3 DHA EPA FISH ST PO SCH (12:09)
--- NOTE | 2019-03-26 12:48 | CT ---
HISTORY: Abdominal pain Study: CT abdomen and pelvis with contrast Comparison: March 24, 2019 Technique: Multiple axial images of the abdomen and pelvis were obtained from the lung bases to the pubic symphysis with the administration of IV contrast. Findings: The visualized portions of the lung bases are unremarkable. The liver, spleen, pancreas, adrenals, and kidneys are unremarkable in appearance. No CT evidence of hydronephrosis is identified. Surgical clips are seen within the gallbladder fossa. A small hiatal hernia is noted. Circumferential thickening of the distal esophagus is again noted. Follow-up endoscopy may be helpful as clinically indicated. Scattered colonic diverticuli are noted. Pericolonic fat stranding is seen adjacent to the distal descending and sigmoid colon. Early/mild diverticulitis cannot entirely be excluded. Recommend clinical correlation and continued follow-up as indicated for further evaluation. The appendix is partially air-filled and otherwise grossly unremarkable. The urinary bladder wall demonstrates a thickened appearance which may in part be due to lack of distention however cystitis or other process cannot be excluded. Correlation with ultrasound and/or cystoscopy may be helpful as clinically indicated. The prostate is prominent and heterogeneous in appearance. The prostate compresses along the posterior margin of the urinary bladder. Degenerative changes are seen within the visualized spine. There is questionable wall thickening involving the cecum and ascending colon however this may in part be due to lack of distention. Correlate clinically. Recommend attention to this region on follow-up exam. IMPRESSION: Diverticulosis with questionable early/mild diverticulitis involving the descending and sigmoid colon as discussed above. Thickened appearance of the urinary bladder wall as noted above. Cholecystectomy. Other findings as noted above. Reported By:
--- NOTE | 2019-03-26 14:04 | DR.PROGNOT ---
Hospital Progress Notes - Progress Note for Day of: Progress Note Date: 03/26/19 - Chief Complaint Chief Complaint: only mild epigastric pain , no nausea or vomiting . repeated abdominal /pelvic CT showed the same findings . ( possible mild diverticulitis ). pathology is pending . - Past Medical Family Social History Past Med/Fam/Surg Hx: No changes since H&P Allergies: Allergies nalbuphine [From Nubain] Adverse Reaction (Verified 03/24/19 17:31) - Review Of Systems ROS: No change since H&P - Vital Signs Vital Signs: Temperature 98.9 F Pulse Rate [Left Radial] 103 Pulse Rate 102 Respiratory Rate 18 Blood Pressure [Right Arm] 158/93 Blood Pressure [Left Arm] 169/93 Blood Pressure 137/74 O2 Sat by Pulse Oximetry 100 - Physical Exam Oriented: Normal Eyes: Normal, Diplopia Nose: Normal Throat: Normal Respiratory: Diminished Cardiovascular: Normal : Normal GI:Auscultation: Normal GI:Palpation: Normal GI: Tenderness: Diffuse, Epigastric Skin: Decreased Turgur Musculoskeletal: Right, Left, Hand, Knee, Back:Lumbar, Swelling, Tender, Cre pitance Psychiatric: Anxiety Affect: Anxious Speech Pattern: Clear, Appropriate - Laboratory and Diagnostics Result Diagrams: 03/26/19 11:48 03/26/19 03:55 Labs: 03/25/19 16:06 Stool Stool Culture - Preliminary 03/25/19 16:06 Stool - Final Laboratory WBC 7.0 X10^3/uL (3.6-10.0) 03/26/19 11:48 RBC 6.13 X10^6/uL (4.7-6.0) H 03/26/19 11:48 Hgb 18.6 g/dL (13.5-18.0) H 03/26/19 11:48 Hct 53.7 % (42.0-54.0) 03/26/19 11:48 MCV 87.6 fL (80.0-100.0) 03/26/19 11:48 MCH 30.4 pg (27.0-34.0) 03/26/19 11:48 MCHC 34.7 g/dL (33.0-35.0) 03/26/19 11:48 RDW 17.5 % (11.6-16.5) H 03/26/19 11:48 Plt Count 158 X10^3/uL (150.0-450.0) 03/26/19 11:48 Plt Count Comment Adequate (ADEQUATE) 03/25/19 04:03 MPV 6.9 fL (7.4-11.0) L 03/26/19 11:48 Neut % (Auto) 63.0 % (42.0-75.0) 03/26/19 11:48 Lymph % (Auto) 17.9 % (21.0-51.0) L 03/26/19 11:48 [place] % (Auto) 17.4 % (0.0-13.0) H 03/26/19 11:48 Eos % (Auto) 1.0 % (0.9-2.9) 03/26/19 11:48 Baso % (Auto) 0.7 % (0.2-1.0) 03/26/19 11:48 Neut # (Auto) 4.4 x10^3/uL (2.2-4.8) 03/26/19 11:48 Lymph # (Auto) 1.3 X10^3/uL (1.3-2.9) 03/26/19 11:48 [place] # (Auto) 1.2 x10^3/uL (0.3-0.8) H 03/26/19 11:48 Eos # (Auto) 0.1 x10^3/uL (0.0-0.2) 03/26/19 11:48 Baso # (Auto) 0.0 X10^3/uL (0.0-0.1) 03/26/19 11:48 Absolute Nucleated RBC 0.3 /100WBC 03/26/19 11:48 Plt Morphology Comment Normal (NORMAL) 03/25/19 04:03 RBC Morphology Normal (NORMAL) 03/25/19 04:03 Sodium 137 mmol/L (136-145) 03/26/19 03:55 Corrected Sodium TNP 03/26/19 03:55 Potassium 3.7 mmol/L (3.5-5.1) 03/26/19 03:55 Chloride 104 mmol/L (98-107) 03/26/19 03:55 Carbon Dioxide 22.1 mmol/L (21-32) 03/26/19 03:55 BUN 14 mg/dL (7-18) 03/26/19 03:55 Creatinine 0.88 mg/dL (0.70-1.30) 03/26/19 03:55 Est GFR (MDRD) Af Amer > 60 (>60) 03/26/19 03:55 Est GFR (MDRD) Non-Af > 60 (>60) 03/26/19 03:55 Glucose 107 mg/dL (65-99) H 03/26/19 03:55 Calcium 7.7 mg/dL (8.5-10.1) L 03/26/19 03:55 Corrected Calcium 8.7 mg/dL (8.5-10.1) 03/26/19 03:55 Total Bilirubin 0.50 mg/dL (0.2-1.0) 03/26/19 03:55 AST 21 Units/L (15-37) 03/26/19 03:55 ALT 16 Units/L (12-78) 03/26/19 03:55 Alkaline Phosphatase 46 Units/L (46-116) 03/26/19 03:55 Total Protein 6.1 g/dL (6.4-8.2) L 03/26/19 03:55 Albumin 2.8 g/dL (3.4-5.0) L 03/26/19 03:55 Globulin 3.3 g/dL (2.5-4.5) 03/26/19 03:55 Albumin/Globulin Ratio 0.8 Ratio (1.1-2.1) L 03/26/19 03:55 Amylase 87 Units/L (25-115) 03/24/19 14:06 Lipase 216 Units/L (73-393) 03/24/19 14:06 Stool Description 40g liquid brown 03/26/19 13:32 Stl Occult Blood (IFOB) Positive (NEGATIVE) A 03/26/19 13:32 Stool for White Cells Positive (NEGATIVE) A 03/25/19 16:06 Stl C. diff Tox B Gene Negative (NEGATIVE) 03/25/19 16:06 Stl C. diff [id number] Negative (NEGATIVE) 03/25/19 16:06 Cryptosporid parvum Ag Negative (NEGATIVE) 03/25/19 16:06 Giardia lamblia Ag Negative (NEGATIVE) 03/25/19 16:06 Tissue Pathology To follow 03/25/19 15:24 - Assessment and Plan 1: abdominal pain . moderate errosive gastritis without bleeding . esophagitis grade ll and small esophageal varices without bleeding . esophageal dysmotility disorder . mild diverticulitis on CT . will continue same plan , soft mechanical diet . to follow as an out Pt and future colonoscopy . - Problem Patient Problems: Patient Problems Abdominal pain (Acute) R10.9 Diarrhea (Acute) R19.7 Diabetes mellitus type 1 (Acute) E10.9 Esophagitis (Acute) K20.9 GERD without esophagitis (Acute) K21.9 Polycythemia (Acute) D75.1
[2019-03-26] MEDS ORDERED: XANAX PO PRN (14:22)
[2019-03-26] MEDS: CIPRO IV 400 MG PREMIX* 400 MG/200 ML IV.SOLN. IV SCH ×2 (14:30→20:33)
[2019-03-26] MEDS ORDERED: DURAGESIC 75 mcg/HR PATCH TD SCH (15:00)
[2019-03-26] MEDS: HumuLIN R SC PRN ×2 (16:40→20:35)
[2019-03-26] MEDS: SNACK - Diabetic Appropriate PO SCH (20:32)
[2019-03-26] MEDS: CHECK PATCH XX SCH (20:32)
[2019-03-26] MEDS: LANTUS SC SCH (20:35)
[2019-03-27] MEDS: NS 1000 ML 1,000 ML IV SCH ×2 (03:42→12:25)
[2019-03-27 05:12] LABS: BASOPHILS % (AUTO) 0.6 % (0.2-1.0); EOSINOPHILS # (AUTO) 0.1 x10^3/uL (0.0-0.2); EOSINOPHILS % (AUTO) 1.4 % (0.9-2.9); HEMATOCRIT 47.5 % (42.0-54.0); HEMOGLOBIN 16.7 g/dL (13.5-18.0); LYMPHOCYTES # (AUTO) 1.3 X10^3/uL (1.3-2.9); LYMPHOCYTES % (AUTO) 22.6 % (21.0-51.0); MEAN CORPUSCULAR HEMOGLOBIN 30.5 pg (27.0-34.0); MEAN CORPUSCULAR HGB CONC 35.1 g/dL (33.0-35.0); MEAN CORPUSCULAR VOLUME 86.9 fL (80.0-100.0); MEAN PLATELET VOLUME 6.7 fL (7.4-11.0); MONOCYTES % (AUTO) 16.8 % (0.0-13.0); NEUTROPHILS # (AUTO) 3.4 x10^3/uL (2.2-4.8); NEUTROPHILS % (AUTO) 58.6 % (42.0-75.0); PLATELET COUNT 146 X10^3/uL (150.0-450.0); RED BLOOD COUNT 5.46 X10^6/uL (4.7-6.0); RED CELL DISTRIBUTION WIDTH 17.2 % (11.6-16.5); WHITE BLOOD COUNT 5.9 X10^3/uL (3.6-10.0)
[2019-03-27 05:25] LABS: ALANINE AMINOTRANSFERASE 18 Units/L (12-78); ALBUMIN 2.9 g/dL (3.4-5.0); ALKALINE PHOSPHATASE 54 Units/L (46-116); ASPARTATE AMINO TRANSFERASE 21 Units/L (15-37); BLOOD UREA NITROGEN 8 mg/dL (7-18); CALCIUM 7.7 mg/dL (8.5-10.1); CARBON DIOXIDE 26.6 mmol/L (21-32); CHLORIDE 104 mmol/L (98-107); COR CA(FOR HYPOALB) 8.6 mg/dL (8.5-10.1); COR NA(FOR HYPERGLY) 139 mmol/L (136-145); CREATININE 0.86 mg/dL (0.70-1.30); SODIUM 138 mmol/L (136-145); TOTAL PROTEIN 6.4 g/dL (6.4-8.2); eGFR NON BLACK RACES > 60 (>60)
[2019-03-27] MEDS: CARAFATE ORAL SUSP PO SCH ×2 (05:31→12:25)
[2019-03-27] MEDS: ZYLOPRIM PO SCH (08:30)
[2019-03-27] MEDS: COREG TAB 12.5 MG PO SCH (08:30)
[2019-03-27] MEDS: CHECK PATCH XX SCH (08:30)
[2019-03-27] MEDS: PROTONIX INJ 40 MG VIAL IVP SCH (08:54)
[2019-03-27] MEDS: CIPRO IV 400 MG PREMIX* 400 MG/200 ML IV.SOLN. IV SCH (08:54)
[2019-03-27] MEDS: NORVASC TAB 5 MG PO SCH (08:55)
[2019-03-27] MEDS: ISOSORBIDE MONONITRATE ER PO SCH (08:55)
[2019-03-27] MEDS: FOLIC ACID TAB 1 MG PO SCH (08:55)
[2019-03-27] MEDS ORDERED: ZESTRIL TAB 10 MG PO SCH (09:00)
[2019-03-27 09:27] VITALS: BP 91/54
[2019-03-27] MEDS: COLACE CAP 100 MG PO SCH (11:51)
[2019-03-27] MEDS: [UNRECOGNIZED DRUG - OTHER] PO SCH (11:52)
[2019-03-27] MEDS: GLUC CONDR OM3 DHA EPA FISH ST PO SCH (11:52)
[2019-03-27] MEDS: HumuLIN R SC PRN (12:23)
== END 2019-03-27 12:25 | disposition home or self-care (01) ==
LOC: ICU 13:42 → ER 13:42 → ICU 18:02
PROVIDERS: ADMIT Internal Medicine; ATTEND Internal Medicine
DX: K21.0 Gastro-esophageal reflux disease with esophagitis; Z79.899 Other long term (current) drug therapy; K29.70 Gastritis, unspecified, without bleeding; K59.1 Functional diarrhea; F41.8 Other specified anxiety disorders; R13.11 Dysphagia, oral phase; Z79.01 Long term (current) use of anticoagulants; D75.1 Secondary polycythemia; R10.84 Generalized abdominal pain; I10 Essential (primary) hypertension; I25.10 Atherosclerotic heart disease of native coronary artery without angina pectoris; E11.65 Type 2 diabetes mellitus with hyperglycemia; I85.00 Esophageal varices without bleeding
CPT/HCPCS: 36415; 36591; 74176; 74177; 80053; 82150; 82270; 83630; 83690; 85025; 87045; 87328; 87329; 87427; 87449; 87493; 87899; 88305; 88342; 93005; 96365; 96367; 96372; 96374; 96375; 99284; A4217; A4222; C9113; G0378; J0744; J1200; J1815; J2060; J2300; J2405; J2704; J7030

== ENCOUNTER 2019-10-02 19:19 | Observation (INO) ==
--- NOTE | 2019-10-02 19:37 | DR.UPM ---
HPI Time Seen Time Seen by Provider: 10/02/19 19:22 PCP Primary Care Physician: keri HPI Comment HPI Comment: 68 yo cm w/ prev hx of bph, type 2 dm, cad, chf w/ ef of 55% presents to Ed w/ complaints of urinary retention/ hematuria/ urinary urgency x 12 hrs. Awoke this am. Was able to urinate scant amount with noted hematuria. Since that time described increasing urinary hesitancy/ urgency alone with suprapubic pressure/ distension. No other abd/ flank or back pain. No f/c. ? prev hx of kidney stones in the past. Complaint Chief Complaint:: pt c/o unable to urinate passing small blood clots pt's abd is distented Source History Provided: Patient Mode of Arrival Mode of Arrival: Ambulatory Timing Onset of Chief Complaint: 10/01/19 PMH PMH Past Medical History: Yes Past Medical History: Arthritis, Coronary Artery Disease, Diabetes, GERD, Hyper tension, Kidney Stones and [place] Past Surgical History: Yes Surgical History: Angioplasty/Stents Family History History of Family Medical Conditions: Yes Family Medical History: [place] Social History Does any household member use tobacco: No Alcohol Use: None Do you use any recreational Drugs:: No Lives With: Family Lives Where: Home infectious screening In the last 2 months have you had wt loss of >10#?: NO Have you had fever, night sweats or hemotysis?: No Have you traveled outside the country in the last 6 months?: No Isolation: Standard ROS Review of Systems Constitutional: negative Chills and Fever Eyes: No Symptoms Reported ENTM: No Symptoms Reported Respiratoy: No Symptoms Reported Cardiovascular: No Symptoms Reported Gastrointestinal/Abdominal: Abdominal Pain; negative Nausea and Vomiting Genitourinary: Dysuria, Hematuria, Pain and Bleeding; negative Discharge and Frequency Neurological: No Symptoms Reported Musculoskeletal: No Symptoms Reported Integumentary: No Symptoms Reported Hematologic/Lymphatic: No Symptoms Reported Endocrine: No Symptoms Reported Psychiatric: No Symptoms Reported All Other Systems: Reviewed and Negative PE Vital Signs Vitals: Temperature 99.4 F Pulse Rate 112 Respiratory Rate 20 Blood Pressure [Right Arm] 158/93 Blood Pressure [Left Arm] 169/93 Blood Pressure 106/62 O2 Sat by Pulse Oximetry 93 General Limitations: No Limitations General Appearance: Alert and In No Apparent Distress Head Head Exam: Normal Inspection Eyes Eye exam: Normal Appearance ENT ENT Exam: Normal Exam Neck Neck Exam: Normal Inspection Chest Chest Inspection: Normal Inspection Respiratory Respiratory Exam: Normal Lung Sounds Bilat Respiratory Exam: Bilateral: Clear to Auscultation Cardiovascular Cardiovascular Exam: Regular Rate and Normal Rhythm Abdominal Exam Abdominal Exam: Normal Bowel Sounds, Distention and Guarding Abdominal Tenderness: Suprapubic Rectal Rectal Exam: Deferred Genitourinary Exam: Male: Deferred Extremities Extremities Exam: Normal Inspection Back Back Exam: Normal Inspection Neurologic Neurological Exam: Alert and Oriented X3 Psychiatric Psychiatric Exam: Normal Affect and Normal Mood Skin Skin Exam: Warm, Dry, Intact and Normal Color MDM Additional Information Obtained Additional Information Obtained From: Old Records and Family Differential Diagnosis Differential Diagnosis: Bladder Outlet Obstructio, Prostatitis, Pyelonephritis, Urethritis, Urinary Retention, Urolithiasis and UTI COURSE Treatment Treatment: 68 yo m presents w/ hematuria and acute urinary retention. Branham cath placed on arrival with noted hematuria. WBC elevated, afebrile. CRE elevated compared to previous. IVF bolus given. CT abd/ pelvis w/ 1.5 mm stone in renal pelvis, no other stones visualized, no evidence of pyelo. UA w/ blood and wbc's. Rocephin given. Will admit for uti/ rupesh. D/w hospitalist dr Crowe whom agrees to admit. Education/Counseling Education/Counseling: Patient and Family Educated On: Treatment, Diagnosis and Prognosis ROR Labs Reviewed Laboratory Results Reviewed?: Yes Result Diagrams: 10/02/19 19:50 10/02/19 19:50 Laboratory: WBC 20.8 X10^3/uL (3.6-10.0) H 10/02/19 19:50 RBC 5.33 X10^6/uL (4.7-6.0) 10/02/19 19:50 Hgb 15.9 g/dL (13.5-18.0) 10/02/19 19:50 Hct 46.6 % (42.0-54.0) 10/02/19 19:50 MCV 87.4 fL (80.0-100.0) 10/02/19 19:50 MCH 29.7 pg (27.0-34.0) 10/02/19 19:50 MCHC 34.0 g/dL (33.0-35.0) 10/02/19 19:50 RDW 18.4 % (11.6-16.5) H 10/02/19 19:50 Plt Count 162 X10^3/uL (150.0-450.0) 10/02/19 19:50 MPV 7.0 fL (7.4-11.0) L 10/02/19 19:50 Neut % (Auto) 78.6 % (42.0-75.0) H 10/02/19 19:50 Lymph % (Auto) 10.1 % (21.0-51.0) L 10/02/19 19:50 [place] % (Auto) 10.6 % (0.0-13.0) 10/02/19 19:50 Eos % (Auto) 0.3 % (0.9-2.9) L 10/02/19 19:50 Baso % (Auto) 0.4 % (0.2-1.0) 10/02/19 19:50 Neut # (Auto) 16.3 x10^3/uL (2.2-4.8) H 10/02/19 19:50 Lymph # (Auto) 2.1 X10^3/uL (1.3-2.9) 10/02/19 19:50 [place] # (Auto) 2.2 x10^3/uL (0.3-0.8) H 10/02/19 19:50 Eos # (Auto) 0.1 x10^3/uL (0.0-0.2) 10/02/19 19:50 Baso # (Auto) 0.1 X10^3/uL (0.0-0.1) 10/02/19 19:50 Absolute Nucleated RBC 0.0 /100WBC 10/02/19 19:50 Sodium 131 mmol/L (136-145) L 10/02/19 19:50 Corrected Sodium 132 mmol/L (136-145) L 10/02/19 19:50 Potassium 4.2 mmol/L (3.5-5.1) 10/02/19 19:50 Chloride 95 mmol/L (98-107) L 10/02/19 19:50 Carbon Dioxide 28.6 mmol/L (21-32) 10/02/19 19:50 BUN 17 mg/dL (7-18) 10/02/19 19:50 Creatinine 1.38 mg/dL (0.70-1.30) H 10/02/19 19:50 Est GFR (MDRD) Af Amer > 60 (>60) 10/02/19 19:50 Est GFR (MDRD) Non-Af 54 (>60) L 10/02/19 19:50 Glucose 154 mg/dL (65-99) H 10/02/19 19:50 Calcium 9.2 mg/dL (8.5-10.1) 10/02/19 19:50 Specimen Type Catherized urine 10/02/19 20:59 Urine Color Dark yellow (YELLOW) 10/02/19 20:59 Urine Appearance Hazy (CLEAR) 10/02/19 20:59 Urine pH 5.0 (5.0 - 8.0) 10/02/19 20:59 Ur Specific [place] 1.020 (1.000-1.030) 10/02/19 20:59 Urine Protein 3+ (NEGATIVE) 10/02/19 20:59 Urine Glucose (UA) Negative (NEGATIVE) 10/02/19 20:59 Urine Ketones 1+ (NEGATIVE) 10/02/19 20:59 Urine Occult Blood 5+ (NEGATIVE) 10/02/19 20:59 Urine Nitrite Negative (NEGATIVE) 10/02/19 20:59 Urine Bilirubin Negative (NEGATIVE) 10/02/19 20:59 Urine Urobilinogen Normal (NORMAL) 10/02/19 20:59 Ur Leukocyte Esterase 3+ (NEGATIVE) 10/02/19 20:59 Urine RBC Tntc /HPF (0-3) A 10/02/19 20:59 Urine WBC Tntc /HPF (0-5) A 10/02/19 20:59 Ur Squamous Epith Cells Few /HPF (NEGATIVE) 10/02/19 20:59 Amorphous Sediment 1+ /HPF (NEGATIVE) 10/02/19 20:59 Urine Bacteria 2+ /HPF (NEGATIVE) 10/02/19 20:59 Ur Culture Indicated? Yes/culture set up 10/02/19:59 XRAY XRAY Interpreted by: Radiologist X-ray Results: 1.5 mm stone in renal pelvis, enlarged prostate Opioid Opioid Risk Tool Age (Ángel box if 16-45): No History of Preadolescent Sexual Abuse: No Total: 0 Total Score Risk Category: Low Risk Copyright: Gabe DURHAM predicting aberrant behaviors Diagnosis Discharge Problem: Cystitis, RUPESH (acute kidney injury)
[2019-10-02] MEDS ORDERED: NS 1000 ML 1,000 ML ONE (19:52)
[2019-10-02] MEDS ORDERED: NS 1000 ML 1,000 ML IV ONE (19:56)
[2019-10-02 20:09] LABS: BASOPHILS # (AUTO) 0.1 X10^3/uL (0.0-0.1); BASOPHILS % (AUTO) 0.4 % (0.2-1.0); BLOOD UREA NITROGEN 17 mg/dL (7-18); CALCIUM 9.2 mg/dL (8.5-10.1); CARBON DIOXIDE 28.6 mmol/L (21-32); CHLORIDE 95 mmol/L (98-107); COR NA(FOR HYPERGLY) 132 mmol/L (136-145); CREATININE 1.38 mg/dL (0.70-1.30); EOSINOPHILS # (AUTO) 0.1 x10^3/uL (0.0-0.2); EOSINOPHILS % (AUTO) 0.3 % (0.9-2.9); HEMATOCRIT 46.6 % (42.0-54.0); HEMOGLOBIN 15.9 g/dL (13.5-18.0); LYMPHOCYTES # (AUTO) 2.1 X10^3/uL (1.3-2.9); LYMPHOCYTES % (AUTO) 10.1 % (21.0-51.0); MEAN CORPUSCULAR HEMOGLOBIN 29.7 pg (27.0-34.0); MEAN CORPUSCULAR VOLUME 87.4 fL (80.0-100.0); MONOCYTES # (AUTO) 2.2 x10^3/uL (0.3-0.8); MONOCYTES % (AUTO) 10.6 % (0.0-13.0); NEUTROPHILS # (AUTO) 16.3 x10^3/uL (2.2-4.8); NEUTROPHILS % (AUTO) 78.6 % (42.0-75.0); PLATELET COUNT 162 X10^3/uL (150.0-450.0); RED BLOOD COUNT 5.33 X10^6/uL (4.7-6.0); RED CELL DISTRIBUTION WIDTH 18.4 % (11.6-16.5); SODIUM 131 mmol/L (136-145); WHITE BLOOD COUNT 20.8 X10^3/uL (3.6-10.0); eGFR NON BLACK RACES 54 (>60)
--- NOTE | 2019-10-02 20:43 | CT ---
STUDY: CT ABDOMEN AND PELVIS WITHOUT IV CONTRASTCOMPARISON: NoneTECHNIQUE: Axial images were acquired of the abdomen and pelvis without IV contrast. Sagittal and coronal reformatted images were provided. All images were reviewed in a variety of windows and levels.RADIATION REDUCTION TECHNIQUE: Automated exposure control, Adjustment of the mA and/or kV according to patient size, or iterative reconstruction techniques were used.HISTORY: urinary retentionFINDINGS:Please note that lack of IV contrast limits evaluation of soft tissue structures and vascular detail.The visualized lower lung zones are clear. The heart size is within normal limits.The liver, spleen, pancreas, adrenal glands, kidneys are grossly unremarkable.The patient is status post cholecystectomy. Urinary bladder contains a Branham catheter. Prostate gland measures 50 x 46 mm and appears to compress against the base of the urinary bladder resulting in bladder outlet obstruction.There is a 1.5 mm nonobstructing stone in the midpole of the right kidney. This is best demonstrated on coronal image 33The stomach, small bowel, large bowel is grossly unremarkable. A few scattered diverticula are seen without evidence of diverticulitis.There are no inflammatory changes seen in the right lower quadrant to suggest secondary signs of acute appendicitis.The appendix is normal.There is no evidence of retroperitoneal or mesenteric lymphadenopathy.The visualized bones demonstrate degenerative changes. There are no concerning lytic or blastic lesions identified.IMPRESSION:1. 1.5 mm nonobstructing stone in the midpole the right kidney2. Urinary bladder contains a Branham catheter and is collapsed. Please note that the prostate appears enlarged but is not clearly characterized on this exam. Estimated size of the prostate gland measures 50 x 46 mm which may be causing bladder outlet obstruction. Follow-up views Urology may be obtained if clinically indicated.3. The appendix is normal4. Status post cholecystectomyElectronically signed by: Rigo Wang (Oct 02, 2019 20:41:48)
[2019-10-02 21:05] LABS: BILIRUBIN,URINE NEGATIVE (NEGATIVE); BLOOD/HEMOGLOBIN,URINE 5+ (NEGATIVE); GLUCOSE, URINE NEGATIVE (NEGATIVE); KETONES,URINE 1+ (NEGATIVE); LEUKOCYTE ESTERASE ,URINE 3+ (NEGATIVE); NITRITES,URINE NEGATIVE (NEGATIVE); PROTEIN,URINE 3+ (NEGATIVE); UROBILINOGEN,URINE NORMAL (NORMAL)
[2019-10-02 21:07] LABS: APPEARANCE,URINE HAZY (CLEAR); COLOR,URINE DARK YELLOW (YELLOW)
[2019-10-02 21:14] LABS: AMORPHOUS SEDIMENT,UR 1+ /HPF (NEGATIVE); BACTERIA,URINE 2+ /HPF (NEGATIVE); RBC,URINE TNTC /HPF (0-3); SQUAMOUS EPITHELIAL CELL,UR FEW /HPF (NEGATIVE)
[2019-10-02] MEDS ORDERED: ROCEPHIN VIAL 1 GRAM 1 G in NS 100 ML IV + SPIKE MINIBAG* 100 ML IV ONE (21:32)
[2019-10-02] MEDS ORDERED: NS 100 ML IV + SPIKE MINIBAG* 100 ML IV ONE (21:42)
[2019-10-02] MEDS ORDERED: ROCEPHIN VIAL 1 GRAM ONE (21:42)
[2019-10-02] MEDS ORDERED: PEPCID TAB 20 MG PO SCH (23:00)
[2019-10-02] MEDS ORDERED: DURAGESIC 75 mcg/HR PATCH TD SCH (23:00)
[2019-10-02] MEDS: NS 1000 ML 1,000 ML IV SCH (23:21)
[2019-10-02] MEDS ORDERED: XANAX ONE (23:36)
[2019-10-02] MEDS: XANAX PO PRN (23:41)
[2019-10-03] MEDS: FLOMAX PO SCH ×2 (00:17→20:52)
[2019-10-03 02:18] VITALS: BMI 25.9
[2019-10-03] MEDS ORDERED: TYLENOL 325 MG TAB PO ONE (03:31)
[2019-10-03] MEDS: TYLENOL 325 MG TAB PO PRN ×2 (03:37→21:07)
[2019-10-03 03:53] LABS: BASOPHILS # (AUTO) 0.1 X10^3/uL (0.0-0.1); BASOPHILS % (AUTO) 0.5 % (0.2-1.0); EOSINOPHILS % (AUTO) 0.1 % (0.9-2.9); HEMATOCRIT 47.9 % (42.0-54.0); HEMOGLOBIN 16.1 g/dL (13.5-18.0); LYMPHOCYTES # (AUTO) 1.4 X10^3/uL (1.3-2.9); MEAN CORPUSCULAR HEMOGLOBIN 29.6 pg (27.0-34.0); MEAN CORPUSCULAR HGB CONC 33.6 g/dL (33.0-35.0); MEAN CORPUSCULAR VOLUME 88.1 fL (80.0-100.0); MONOCYTES # (AUTO) 1.7 x10^3/uL (0.3-0.8); MONOCYTES % (AUTO) 8.5 % (0.0-13.0); NEUTROPHILS # (AUTO) 16.9 x10^3/uL (2.2-4.8); NEUTROPHILS % (AUTO) 83.9 % (42.0-75.0); PLATELET COUNT 148 X10^3/uL (150.0-450.0); RED BLOOD COUNT 5.43 X10^6/uL (4.7-6.0); RED CELL DISTRIBUTION WIDTH 18.4 % (11.6-16.5); WHITE BLOOD COUNT 20.1 X10^3/uL (3.6-10.0)
[2019-10-03 04:07] LABS: ALANINE AMINOTRANSFERASE 24 Units/L (12-78); ALBUMIN 3.3 g/dL (3.4-5.0); ALKALINE PHOSPHATASE 56 Units/L (46-116); ASPARTATE AMINO TRANSFERASE 16 Units/L (15-37); BLOOD UREA NITROGEN 19 mg/dL (7-18); CALCIUM 8.7 mg/dL (8.5-10.1); CARBON DIOXIDE 27.7 mmol/L (21-32); CHLORIDE 97 mmol/L (98-107); COR CA(FOR HYPOALB) 9.3 mg/dL (8.5-10.1); COR NA(FOR HYPERGLY) 135 mmol/L (136-145); CREATININE 1.35 mg/dL (0.70-1.30); SODIUM 134 mmol/L (136-145); TOTAL PROTEIN 7.3 g/dL (6.4-8.2); eGFR NON BLACK RACES 56 (>60)
[2019-10-03 04:16] LABS: PLATELET MORPHOLOGY COMMENT NORMAL (NORMAL)
[2019-10-03] MEDS: NS 1000 ML 1,000 ML IV SCH ×3 (06:04→22:27)
[2019-10-03] MEDS ORDERED: NORVASC TAB 2.5 MG ONE (08:29)
[2019-10-03] MEDS ORDERED: PATIENT'S HOME MEDICATION (Rosuvastatin 40 MG) PO SCH (09:00)
[2019-10-03] MEDS ORDERED: [UNRECOGNIZED DRUG - MIXTURE] PO SCH (09:00)
[2019-10-03] MEDS ORDERED: NORVASC TAB 2.5 MG PO SCH (09:00)
[2019-10-03] MEDS ORDERED: BIOTIN 10000 MCG PO SCH (09:00)
[2019-10-03] MEDS: ROCEPHIN VIAL 1 GRAM 1 G in NS 100 ML IV + SPIKE MINIBAG* 100 ML IV SCH ×2 (10:10→10:14)
[2019-10-03] MEDS: CRESTOR TAB 10 MG PO SCH (10:11)
[2019-10-03] MEDS: NEURONTIN TAB 600 MG PO SCH ×2 (10:11→20:52)
[2019-10-03] MEDS: MONOKET or IMDUR PO SCH ×2 (10:11→20:52)
[2019-10-03] MEDS: COLACE CAP 100 MG PO SCH ×2 (10:12→20:52)
[2019-10-03] MEDS: PLAVIX PO SCH (10:12)
[2019-10-03] MEDS: COREG TAB 12.5 MG PO SCH ×2 (10:13→20:53)
[2019-10-03] MEDS: ZYLOPRIM PO SCH (10:13)
[2019-10-03] MEDS: PROTONIX TAB 40 MG PO SCH ×2 (10:13→20:51)
[2019-10-03] MEDS: CLARITIN PO SCH (10:13)
[2019-10-03] MEDS: FOLIC ACID TAB 1 MG PO SCH (10:13)
[2019-10-03] MEDS: HumuLIN R SUBCUT PRN ×3 (12:35→21:05)
[2019-10-03] MEDS: XANAX PO PRN (20:51)
[2019-10-04 05:28] LABS: BASOPHILS % (AUTO) 0.4 % (0.2-1.0); EOSINOPHILS % (AUTO) 0.1 % (0.9-2.9); HEMOGLOBIN 14.4 g/dL (13.5-18.0); LYMPHOCYTES # (AUTO) 0.5 X10^3/uL (1.3-2.9); LYMPHOCYTES % (AUTO) 4.4 % (21.0-51.0); MEAN CORPUSCULAR HEMOGLOBIN 29.6 pg (27.0-34.0); MEAN CORPUSCULAR HGB CONC 33.5 g/dL (33.0-35.0); MEAN CORPUSCULAR VOLUME 88.3 fL (80.0-100.0); MEAN PLATELET VOLUME 7.1 fL (7.4-11.0); MONOCYTES # (AUTO) 0.9 x10^3/uL (0.3-0.8); MONOCYTES % (AUTO) 7.4 % (0.0-13.0); NEUTROPHILS # (AUTO) 10.9 x10^3/uL (2.2-4.8); NEUTROPHILS % (AUTO) 87.7 % (42.0-75.0); PLATELET COUNT 119 X10^3/uL (150.0-450.0); RED BLOOD COUNT 4.87 X10^6/uL (4.7-6.0); RED CELL DISTRIBUTION WIDTH 18.8 % (11.6-16.5); WHITE BLOOD COUNT 12.5 X10^3/uL (3.6-10.0)
[2019-10-04] MEDS: HumuLIN R SUBCUT PRN ×4 (05:43→20:47)
[2019-10-04 05:53] LABS: ALANINE AMINOTRANSFERASE 19 Units/L (12-78); ALBUMIN 2.8 g/dL (3.4-5.0); ALKALINE PHOSPHATASE 60 Units/L (46-116); ASPARTATE AMINO TRANSFERASE 13 Units/L (15-37); BLOOD UREA NITROGEN 18 mg/dL (7-18); CALCIUM 8.8 mg/dL (8.5-10.1); CHLORIDE 102 mmol/L (98-107); COR CA(FOR HYPOALB) 9.8 mg/dL (8.5-10.1); COR NA(FOR HYPERGLY) 141 mmol/L (136-145); SODIUM 135 mmol/L (136-145); TOTAL PROTEIN 6.8 g/dL (6.4-8.2); eGFR NON BLACK RACES > 60 (>60)
[2019-10-04] MEDS ORDERED: ZESTRIL TAB 20 MG ONE (08:18)
[2019-10-04] MEDS: COREG TAB 12.5 MG PO SCH ×2 (09:02→20:38)
[2019-10-04] MEDS: CLARITIN PO SCH (09:02)
[2019-10-04] MEDS: COLACE CAP 100 MG PO SCH ×2 (09:02→20:38)
[2019-10-04] MEDS: NS 1000 ML 1,000 ML IV SCH ×4 (09:03→23:00)
[2019-10-04] MEDS: CRESTOR TAB 10 MG PO SCH (09:03)
[2019-10-04] MEDS: FOLIC ACID TAB 1 MG PO SCH (09:03)
[2019-10-04] MEDS: MONOKET or IMDUR PO SCH ×2 (09:03→20:37)
[2019-10-04] MEDS: ZESTRIL TAB 20 MG PO SCH (09:03)
[2019-10-04] MEDS: NEURONTIN TAB 600 MG PO SCH ×2 (09:04→20:38)
[2019-10-04] MEDS: ZYLOPRIM PO SCH (09:04)
[2019-10-04] MEDS: PLAVIX PO SCH (09:04)
[2019-10-04] MEDS: PROTONIX TAB 40 MG PO SCH ×2 (09:04→20:39)
[2019-10-04] MEDS: ROCEPHIN VIAL 1 GRAM 1 G in NS 100 ML IV + SPIKE MINIBAG* 100 ML IV SCH (09:04)
[2019-10-04] MEDS ORDERED: HumuLIN 70/30 (NovoLIN 70/30) SC ONE (12:25)
[2019-10-04] MEDS: HumuLIN 70/30 (NovoLIN 70/30) SC SCH ×2 (12:44→17:06)
--- NOTE | 2019-10-04 13:49 | DR.H&P ---
H&P - History & Physical for Day of: H&P Date: 10/02/19 - Chief Complaint Chief Complaint: LOWER BACK PAIN, URINARY RETENTION, DYSURIA, BLOOD IN URINE - History of Present Illness History of Present Illness: PT IS 68 WM ER ADMISSION WITH UTI, BPH SYMPTOMS. PT HAD CT ABD/PELVIS REVEALING ENLARGED PROTATE, WBC 20. PT ADMITTED FOR TREATMENT OF ACUTE PROSTATITIS AND UTI. PT HAS PMH OF CAD, HTN, OA, RA, DM. - Past Medical History Past Medical History: [place], Coronary Artery Disease, Hypertension, Diabetes, GERD, Arthritis, Kidney Stones Additional Medical History: POLYCYTHEMIA - Past Surgical History Surgical History: Angioplasty/Stents, Cholecystectomy - Family History Family Medical History: NH - Social History Does patient currently use any type of tobacco product: No Have you used tobacco products in the last 12 months: No Type of Tobacco Use: None Does any household member use tobacco: No Alcohol Use: None Drug Use: None - Medications Home Medications: nalbuphine [From Nubain] Adverse Reaction (Verified 03/24/19 17:31) CONTINUE taking the following medications allopurinol 300 mg PO DAILY 10/02/19 [History] alprazolam [Xanax] 0.5 mg PO BID PRN 10/02/19 [History] amlodipine [Norvasc] 2.5 mg PO DAILY 10/02/19 [History] aspirin [Aspir-81] 81 mg PO DAILY 10/02/19 [History] biotin 10,000 mcg PO DAILY 10/02/19 [History] carvedilol [Coreg] 12.5 mg PO BID 10/02/19 [History] clopidogrel [Plavix] 75 mg PO DAILY 10/02/19 [History] docusate sodium [Stool Softener] 100 mg PO BID 10/02/19 [History] etanercept [Enbrel] 50 mg SUBCUT QWEEK 10/02/19 [History] famotidine 20 mg PO QHS 10/02/19 [History] fentanyl 1 patch TRANSDERMAL Q72H 10/02/19 [History] folic acid 1 mg PO DAILY 10/02/19 [History] furosemide [Lasix] 20 mg PO DAILY PRN 10/02/19 [History] gabapentin 600 mg PO BID 10/02/19 [History] [id number]-wfa 149-hyal ac [Glucos Chond Cplx Advanced] 1 tab PO BID 10/02/19 [History] insulin asp prt-insulin aspart [Novolog Mix 70-30 U-100 Insuln] See Rx Instructions .ROUTE .COMPLEX 10/02/19 [History] isosorbide mononitrate 60 mg PO BID 10/02/19 [History] lisinopril 10 mg PO DAILY 10/02/19 [History] loratadine 10 mg PO DAILY 10/02/19 [History] metformin 500 mg PO DAILY 10/02/19 [History] pl-ldhe-xwzly-lycopene-ginkgo [One Daily For Men 50+ Advanced] 1 tab PO DAILY 10/02/19 [History] oxycodone-acetaminophen 1 tab PO Q8H PRN 10/02/19 [History] pantoprazole 40 mg PO BID 10/02/19 [History] rosuvastatin 40 mg PO DAILY 10/02/19 [History] tamsulosin [Flomax] 0.4 mg PO QHS 10/02/19 [History] - Review of Systems Constitutional: Chills, Weakness, Malaise Eyes: No Symptoms Reported ENT: No Symptoms Reported, Ear Discharge Cardiovascular: No Symptoms Reported Gastrointestinal: Nausea Genitourinary: Dysuria, Frequency, Hematuria, Retention Musculoskeletal: Back Pain Neurological: No Symptoms Reported - Physical Exam Vital Signs: Temperature 98.2 F Pulse Rate [Left Brachial] 88 Pulse Rate 112 Respiratory Rate 18 Blood Pressure [Right Arm] 138/66 Blood Pressure [Left Arm] 167/80 Blood Pressure 106/62 O2 Sat by Pulse Oximetry 96 Oriented: Normal Eyes: Normal Ear: Normal Nose: Normal Throat: Normal Respiratory: Clear Throughout Cardiovascular: Normal : Normal Auscultation: Bowel Sounds: Normal Palpation: Normal Tenderness: Suprapubic, Mild Skin: Decreased Turgur Musculoskeletal: Back:Thoracic, Back:Lumbar Psychiatric: Anxiety Mood Description: Anxious Affect: Anxious Speech Pattern: Clear, Appropriate - Assessment/Plan (1) UTI (urinary tract infection) Status: Acute Plan: ADMIT, URINE CULTURE ON ADMISSION IV ATBX. ADMISSION LABS, VERIFY HOME MEDICATION. GENTLE HYDRATION, STRICT I& OS. BP CONTROL, BS MONITORING (2) Prostatitis Status: Acute (3) RUPESH (acute kidney injury) Status: Acute (4) Cystitis Status: Acute (5) Benign essential HTN Status: Chronic (6) CAD (coronary artery disease) Status: Chronic (7) DASHA (generalized anxiety disorder) Status: Chronic (8) Type II diabetes mellitus, uncontrolled Status: Chronic - Allergies Allergies/Adverse Reactions: Allergies Allergy/AdvReac Type Severity Reaction Status Date / Time nalbuphine [From Melissa] AdvReac Verified 03/24/19 17:31
[2019-10-04] MEDS: PYRIDIUM PO SCH (17:07)
[2019-10-04] MEDS ORDERED: SNACK - Diabetic Appropriate PO SCH (20:00)
[2019-10-04] MEDS: FLOMAX PO SCH (20:37)
[2019-10-04] MEDS: XANAX PO PRN (20:38)
[2019-10-05 04:55] LABS: BASOPHILS # (AUTO) 0.1 X10^3/uL (0.0-0.1); BASOPHILS % (AUTO) 0.6 % (0.2-1.0); EOSINOPHILS # (AUTO) 0.1 x10^3/uL (0.0-0.2); EOSINOPHILS % (AUTO) 0.8 % (0.9-2.9); HEMOGLOBIN 14.2 g/dL (13.5-18.0); LYMPHOCYTES # (AUTO) 0.6 X10^3/uL (1.3-2.9); LYMPHOCYTES % (AUTO) 7.2 % (21.0-51.0); MEAN CORPUSCULAR HEMOGLOBIN 29.6 pg (27.0-34.0); MEAN CORPUSCULAR HGB CONC 33.7 g/dL (33.0-35.0); MEAN CORPUSCULAR VOLUME 87.6 fL (80.0-100.0); MEAN PLATELET VOLUME 7.4 fL (7.4-11.0); MONOCYTES % (AUTO) 11.5 % (0.0-13.0); NEUTROPHILS # (AUTO) 7.1 x10^3/uL (2.2-4.8); NEUTROPHILS % (AUTO) 79.9 % (42.0-75.0); PLATELET COUNT 148 X10^3/uL (150.0-450.0); RED CELL DISTRIBUTION WIDTH 18.7 % (11.6-16.5); WHITE BLOOD COUNT 8.9 X10^3/uL (3.6-10.0)
[2019-10-05 05:21] LABS: TOTAL PSA 15.21 ng/mL (0.13-4.0)
[2019-10-05 05:22] LABS: ALANINE AMINOTRANSFERASE 26 Units/L (12-78); ALBUMIN 2.6 g/dL (3.4-5.0); ALKALINE PHOSPHATASE 60 Units/L (46-116); ASPARTATE AMINO TRANSFERASE 21 Units/L (15-37); BLOOD UREA NITROGEN 14 mg/dL (7-18); CALCIUM 9.2 mg/dL (8.5-10.1); CARBON DIOXIDE 26.1 mmol/L (21-32); CHLORIDE 102 mmol/L (98-107); COR CA(FOR HYPOALB) 10.3 mg/dL (8.5-10.1); COR NA(FOR HYPERGLY) 139 mmol/L (136-145); CREATININE 1.04 mg/dL (0.70-1.30); SODIUM 135 mmol/L (136-145); TOTAL PROTEIN 6.8 g/dL (6.4-8.2); eGFR NON BLACK RACES > 60 (>60)
[2019-10-05] MEDS: PYRIDIUM PO SCH ×2 (06:10→12:25)
[2019-10-05] MEDS: HumuLIN 70/30 (NovoLIN 70/30) SC SCH (06:10)
[2019-10-05] MEDS: NS 1000 ML 1,000 ML IV SCH (06:10)
[2019-10-05] MEDS ORDERED: ZESTRIL TAB 20 MG ONE (08:05)
[2019-10-05] MEDS: ROCEPHIN VIAL 1 GRAM 1 G in NS 100 ML IV + SPIKE MINIBAG* 100 ML IV SCH ×2 (08:20→12:27)
[2019-10-05] MEDS: FOLIC ACID TAB 1 MG PO SCH (08:21)
[2019-10-05] MEDS: PROTONIX TAB 40 MG PO SCH (08:21)
[2019-10-05] MEDS: MONOKET or IMDUR PO SCH (08:21)
[2019-10-05] MEDS: NEURONTIN TAB 600 MG PO SCH (08:21)
[2019-10-05] MEDS: CLARITIN PO SCH (08:22)
[2019-10-05] MEDS: PLAVIX PO SCH (08:22)
[2019-10-05] MEDS: CRESTOR TAB 10 MG PO SCH (08:22)
[2019-10-05] MEDS: ZYLOPRIM PO SCH (08:22)
[2019-10-05] MEDS: ZESTRIL TAB 20 MG PO SCH (08:22)
[2019-10-05] MEDS: COREG TAB 12.5 MG PO SCH (08:22)
[2019-10-05] MEDS: COLACE CAP 100 MG PO SCH (08:23)
[2019-10-05] MEDS ORDERED: ROCEPHIN VIAL 1 GRAM IM ONE (12:01)
[2019-10-05] MEDS ORDERED: ROCEPHIN VIAL 1 GRAM ONE (12:12)
[2019-10-05] MEDS ORDERED: XYLOCAINE 1 % (PLAIN) ONE (12:12)
[2019-10-05 16:32] VITALS: BP 186/95
== END 2019-10-05 17:10 | disposition home or self-care (01) ==
LOC: ER 19:19 → MED/SURG 22:43 → INTOOBSV 22:43 → MED/SURG 22:58
PROVIDERS: ADMIT Internal Medicine; ATTEND Internal Medicine
DX: I25.10 Atherosclerotic heart disease of native coronary artery without angina pectoris; N30.01 Acute cystitis with hematuria; N17.9 Acute kidney failure, unspecified; M06.9 Rheumatoid arthritis, unspecified; E11.9 Type 2 diabetes mellitus without complications
CPT/HCPCS: 36415; 51702; 74176; 80048; 80053; 81001; 83605; 84153; 85025; 87040; 87086; 87088; 87186; 96360; 96361; 96365; 96367; 96372; 96374; 97161; 99282; A4216; A4222; G0378; J0696; J1815; J3490; J7030; J7050

== ENCOUNTER 2019-11-03 11:05 | Observation (INO) ==
--- NOTE | 2019-11-03 11:12 | DR.FEVERAD ---
HPI Time seen Time Seen by Provider: 11/03/19 11:05 Complaints/Symptoms Chief Complaint Doctor Comments: A 69 y/o male brought to the ED by his spouse for evaluation of fever and confusion. He denies dyspnea, cough, diaphoresis, diaphoresis or recent travel. His spouse states that he was in the hospital here from 10/02/2019 to 10/05/2019 and treated for a UTI. He just hasn't got back to himself since being released according to his spouse. But the confusion worsened today. He has been nauseated and with some vomiting. Also he fell at home last night but it was when [place] the city Nurses notes reviewed Nurses Notes Review: Yes Source History Provided: Patient and Significant Other Mode of Arrival Mode of Arrival: Wheelchair Timing Came on: Gradually Severity Fever Severity/Quality: greater than 100.5 F Context Recent: Treated Infection and Antibiotic Symptoms: Fever History of: None Modifying factors Modifying factors: Nothing Associated signs and symptoms Associated signs and symptoms: Confusion PMH PMH Past Medical History: Arthritis, Coronary Artery Disease, Diabetes, GERD, Hypertension, Kidney Stones and [place] Past Surgical History: Yes Surgical History: Angioplasty/Stents and Cholecystectomy Family History Family Medical History: [place] Social History Do you use any recreational Drugs:: No Infectious screening Isolation: Standard ROS Review of Systems Constitutional: Fever and Malaise Eyes: No Symptoms Reported ENTM: No Symptoms Reported Respiratoy: No Symptoms Reported Cardiovascular: No Symptoms Reported Gastrointestinal/Abdominal: Nausea and Vomiting Genitourinary: No Symptoms Reported Neurological: Other (Confusion) Musculoskeletal: No Symptoms Reported Integumentary: No Symptoms Reported Hematologic/Lymphatic: No Symptoms Reported Endocrine: No Symptoms Reported Psychiatric: No Symptoms Reported All Other Systems: Reviewed and Negative PE Vital Signs Vitals: Temperature 100.2 F Pulse Rate 114 Respiratory Rate 0 Blood Pressure [Right Arm] 186/95 Blood Pressure 111/53 O2 Sat by Pulse Oximetry 96 General Limitations: No Limitations General Appearance: Alert, In No Apparent Distress and Appears Intoxicated Head Head Exam: Normal Inspection, Atraumatic and Normocephalic Eyes Eye exam: Normal Appearance and EOMI ENT ENT Exam: Normal Exam, Normal Oropharynx, Normal External Ear Exam, Mucous Membranes Moist and TM's Normal Bilaterally Neck Neck Exam: Normal Inspection, Full ROM and Trachea Midline; negative Tenderness, Meningismus, Lymphadenopathy and Thyromegaly Respiratory Respiratory Exam: Normal Lung Sounds Bilat; negative Accessory Muscle Use, Chest Wall Tenderness, Prolonged Expiratory Phase, Respiratory Distress and Stridor Cardiovascular Cardiovascular Exam: Normal Rhythm, Tachycardia, Normal Heart Sounds, +S1 and +S2 Abdominal Exam Abdominal Exam: Normal Inspection, Normal Bowel Sounds and Soft Extremities Extremities Exam: Normal Inspection and Full ROM Back Back Exam: Normal Inspection and Full ROM Neurologic Neurological Exam: Alert and Other (He is oriented to self, family and place. ) Psychiatric Psychiatric Exam: Normal Affect and Normal Mood Skin Skin Exam: Dry and Intact COURSE Reevaluation 1st: Improved Education/Counseling Education/Counseling: Patient, Family, Education and Counseling Educated On: Treatment, Diagnosis, Prognosis and Needs for Follow Up ROR Labs Reviewed Laboratory Results Reviewed?: Yes Result Diagrams: 11/03/19 11:32 11/03/19 11:32 Laboratory: WBC 17.2 X10^3/uL (3.6-10.0) H 11/03/19 11:32 RBC 5.25 X10^6/uL (4.7-6.0) 11/03/19 11:32 Hgb 15.5 g/dL (13.5-18.0) 11/03/19 11:32 Hct 45.1 % (42.0-54.0) 11/03/19 11:32 MCV 85.9 fL (80.0-100.0) 11/03/19 11:32 MCH 29.5 pg (27.0-34.0) 11/03/19 11:32 MCHC 34.3 g/dL (33.0-35.0) 11/03/19 11:32 RDW 17.1 % (11.6-16.5) H 11/03/19 11:32 Plt Count 208 X10^3/uL (150.0-450.0) 11/03/19 11:32 MPV 6.8 fL (7.4-11.0) L 11/03/19 11:32 Neut % (Auto) 85.4 % (42.0-75.0) H 11/03/19 11:32 Lymph % (Auto) 7.7 % (21.0-51.0) L 11/03/19 11:32 [place] % (Auto) 5.8 % (0.0-13.0) 11/03/19 11:32 Eos % (Auto) 0.7 % (0.9-2.9) L 11/03/19 11:32 Baso % (Auto) 0.4 % (0.2-1.0) 11/03/19 11:32 Neut # (Auto) 14.7 x10^3/uL (2.2-4.8) H 11/03/19 11:32 Lymph # (Auto) 1.3 X10^3/uL (1.3-2.9) 11/03/19 11:32 [place] # (Auto) 1.0 x10^3/uL (0.3-0.8) H 11/03/19 11:32 Eos # (Auto) 0.1 x10^3/uL (0.0-0.2) 11/03/19 11:32 Baso # (Auto) 0.1 X10^3/uL (0.0-0.1) 11/03/19 11:32 Absolute Nucleated RBC 0.0 /100WBC 11/03/19 11:32 Sodium 134 mmol/L (136-145) L 11/03/19 11:32 Corrected Sodium 135 mmol/L (136-145) L 11/03/19 11:32 Potassium 4.6 mmol/L (3.5-5.1) 11/03/19 11:32 Chloride 96 mmol/L (98-107) L 11/03/19 11:32 Carbon Dioxide 28.2 mmol/L (21-32) 11/03/19 11:32 BUN 20 mg/dL (7-18) H 11/03/19 11:32 Creatinine 1.17 mg/dL (0.70-1.30) 11/03/19 11:32 Est GFR (MDRD) Af Amer > 60 (>60) 11/03/19 11:32 Est GFR (MDRD) Non-Af > 60 (>60) 11/03/19 11:32 Glucose 153 mg/dL (65-99) H 11/03/19 11:32 Lactic Acid 0.8 mmol/L (0.4-2.0) 11/03/19 14:28 Calcium 10.6 mg/dL (8.5-10.1) H 11/03/19 11:32 Corrected Calcium TNP 11/03/19 11:32 Total Bilirubin 0.40 mg/dL (0.2-1.0) 11/03/19 11:32 AST 42 Units/L (15-37) H 11/03/19 11:32 ALT 45 Units/L (12-78) 11/03/19 11:32 Alkaline Phosphatase 50 Units/L (46-116) 11/03/19 11:32 Total Protein 8.4 g/dL (6.4-8.2) H 11/03/19 11:32 Albumin 3.6 g/dL (3.4-5.0) 11/03/19 11:32 Globulin 4.8 g/dL (2.5-4.5) H 11/03/19 11:32 Albumin/Globulin Ratio 0.8 Ratio (1.1-2.1) L 11/03/19 11:32 TSH 3rd Generation 0.693 uIU/mL (0.358-3.74) 11/03/19 11:32 Specimen Type Clean catch urine 11/03/19 13:19 Urine Color Yellow (YELLOW) 11/03/19 13:19 Urine Appearance Clear (CLEAR) 11/03/19 13:19 Urine pH 6.0 (5.0 - 8.0) 11/03/19 13:19 Ur Specific [place] 1.010 (1.000-1.030) 11/03/19 13:19 Urine Protein 2+ (NEGATIVE) 11/03/19 13:19 Urine Glucose (UA) Negative (NEGATIVE) 11/03/19 13:19 Urine Ketones Negative (NEGATIVE) 11/03/19 13:19 Urine Occult Blood Negative (NEGATIVE) 11/03/19 13:19 Urine Nitrite Negative (NEGATIVE) 11/03/19 13:19 Urine Bilirubin Negative (NEGATIVE) 11/03/19 13:19 Urine Urobilinogen Normal (NORMAL) 11/03/19 13:19 Ur Leukocyte Esterase Negative (NEGATIVE) 11/03/19 13:19 Urine RBC 0-2 /HPF (0-3) 11/03/19 13:19 Urine WBC 3-5 /HPF (0-5) 11/03/19 13:19 Ur Squamous Epith Cells Rare /HPF (NEGATIVE) 11/03/19 13:19 Amorphous Sediment 1+ /HPF (NEGATIVE) 11/03/19 13:19 Urine Bacteria Negative /HPF (NEGATIVE) 11/03/19 13:19 Ur Culture Indicated? No/not indicated 11/03/19 13:19 S. pyogenes (TEM-PCR) Not detected (NOT DETECT) 11/03/19 11:11 Opioid Opioid Risk Tool Age (Ángel box if 16-45): No History of Preadolescent Sexual Abuse: No Total: 0 Total Score Risk Category: Low Risk Copyright: [facility] predicting aberrant behaviors Diagnosis Discharge Problem: Ileus, Acute dehydration, Rheumatoid aortitis Leukocytosis Qualifiers: Leukocytosis type: unspecified Qualified Code(s): D72.829 - Elevated white blood cell count, unspecified Fever Qualifiers: Fever type: unspecified Qualified Code(s): R50.9 - Fever, unspecified Hypotension Qualifiers: Hypotension type: unspecified hypotension type Qualified Code(s): I95.9 - Hypotension, unspecified Diabetes Qualifiers: Diabetes mellitus type: type 2 Diabetes mellitus half-way insulin use: without half-way use Diabetes mellitus complication status: with kidney complications Diabetes mellitus complication detail: with chronic kidney disease Chronic kidney disease stage: stage 2 (mild) Qualified Code(s): E11.22 - Type 2 diabetes mellitus with diabetic chronic kidney disease Instructions Forms: Excuse From Work Precautions for COVID19 Patient Portal Social Distancing ADDITIONAL NOTES Additional Notes Additional Notes: Name: RUTHIE CHURCHILL [facility]#: [id number] : 1950 Sex: M Location: ER Order Number(s): [id number] Procedure(s):BRAIN W/O CON Ordering Physician: JUVE MONTALVO Primary Care: Milly Churchill Service Date: 11/03/19 Service Time: 1148 HISTORY Confusion status post fall. STUDY BRAIN W/O CON COMPARISON None. TECHNIQUE Multiple axial images of the head were obtained from the skull base to the vertex without administration of IV contrast. Sagittal and coronal reformatted images were performed. Automated exposure control (AEC) was utilized to adjust the MA and/or kV. FINDINGS The sulci, cisterns and ventricles are prominent consistent with mild diffuse volume loss. There are confluent and scattered foci of low attenuation in the periventricular and subcortical white matter of both hemispheres. This is a nonspecific finding which likely represents mild microangiopathic change in a patient of this age. There is no evidence of acute territorial infarction, hemorrhage, mass, mass effect or midline shift. There are no abnormal intra-axial or extra-axial fluid collections. The visualized paranasal sinuses and mastoid air cells are predominantly clear. There is no evidence of acute osseous abnormality or significant soft tissue swelling. IMPRESSION 1. No evidence of acute intracranial abnormality. 2. Mild nonspecific white matter change and volume loss. 3. If there is strong clinical concern for acute intracranial abnormality, then an MRI examination of the brain could be performed for further evaluation. However, if there are no deficits on neurologic exam, there are no abnormalities identified on this study which require immediate imaging follow-up on an emergent basis. Follow-up MRI could be considered on an outpatient basis as clinically warranted. Electronically signed by: PATRICIA KHAN (Nov 03, 2019 12:12:58) [id number] 1950 Sex: M Location: ER Order Number(s): [id number] Procedure(s):CHEST, 1 VIEW Ordering Physician: JUVE MONTALVO Primary Care: Milly Churchill Service Date: 11/03/19 Service Time: 1148 HISTORY Fever, N/V STUDY CHEST, 1 VIEW, done portably COMPARISON 04/29/2019. FINDINGS Current examination is considerably more expiratory. The trachea is midline. The cardiac silhouette is unremarkable . The lungs are clear without focal infiltrate or effusion. The bony thorax is unremarkable. IMPRESSION No acute cardiopulmonary disease. Electronically signed by: ELIZABETH WRAY (Nov 03, 2019 12:34:51) HISTORY N/V cad, htn, dm, mi, angioplasty stents STUDY KUB COMPARISON CT scan of the abdomen and pelvis done 10/02/2019. FINDINGS The region of the left abdomen, including the descending colon,is cut off the image. Of the colon that is visualized,there is a large amount stool extending from the cecum to the distal transverse colon. A small amount stool is present in the rectum. There is very mild gaseous distension of a small-bowel loop in the right lower quadrant. This may indicate a very mild small bowel ileus. There is no indication of bowel obstruction. There are surgical clips from cholecystectomy. No opaque stone is identified. Degenerative changes are present involving the right SI joint and the lumbar spine. IMPRESSION Mild small bowel ileus pattern in the right lower quadrant. No bowel obstruction is seen. Electronically signed by: ELIZABETH WRAY (Nov 03, 2019 12:29:35)
[2019-11-03 11:17] VITALS: BMI 25.8
[2019-11-03 12:00] LABS: BASOPHILS # (AUTO) 0.1 X10^3/uL (0.0-0.1); BASOPHILS % (AUTO) 0.4 % (0.2-1.0); EOSINOPHILS # (AUTO) 0.1 x10^3/uL (0.0-0.2); EOSINOPHILS % (AUTO) 0.7 % (0.9-2.9); HEMATOCRIT 45.1 % (42.0-54.0); HEMOGLOBIN 15.5 g/dL (13.5-18.0); LYMPHOCYTES # (AUTO) 1.3 X10^3/uL (1.3-2.9); LYMPHOCYTES % (AUTO) 7.7 % (21.0-51.0); MEAN CORPUSCULAR HEMOGLOBIN 29.5 pg (27.0-34.0); MEAN CORPUSCULAR HGB CONC 34.3 g/dL (33.0-35.0); MEAN CORPUSCULAR VOLUME 85.9 fL (80.0-100.0); MEAN PLATELET VOLUME 6.8 fL (7.4-11.0); MONOCYTES % (AUTO) 5.8 % (0.0-13.0); NEUTROPHILS # (AUTO) 14.7 x10^3/uL (2.2-4.8); NEUTROPHILS % (AUTO) 85.4 % (42.0-75.0); PLATELET COUNT 208 X10^3/uL (150.0-450.0); RED BLOOD COUNT 5.25 X10^6/uL (4.7-6.0); RED CELL DISTRIBUTION WIDTH 17.1 % (11.6-16.5); WHITE BLOOD COUNT 17.2 X10^3/uL (3.6-10.0)
[2019-11-03 12:13] LABS: ALANINE AMINOTRANSFERASE 45 Units/L (12-78); ALBUMIN 3.6 g/dL (3.4-5.0); ALKALINE PHOSPHATASE 50 Units/L (46-116); ASPARTATE AMINO TRANSFERASE 42 Units/L (15-37); BLOOD UREA NITROGEN 20 mg/dL (7-18); CALCIUM 10.6 mg/dL (8.5-10.1); CARBON DIOXIDE 28.2 mmol/L (21-32); CHLORIDE 96 mmol/L (98-107); COR NA(FOR HYPERGLY) 135 mmol/L (136-145); CREATININE 1.17 mg/dL (0.70-1.30); SODIUM 134 mmol/L (136-145); TOTAL PROTEIN 8.4 g/dL (6.4-8.2); TSH (3RD GENERATION) 0.693 uIU/mL (0.358-3.74); eGFR NON BLACK RACES > 60 (>60)
[2019-11-03] MEDS ORDERED: TYLENOL 325 MG TAB PO ONE ×2 (12:14→12:18)
[2019-11-03] MEDS ORDERED: NS 1000 ML 1,000 ML IV ONE ×2 (12:14→13:31)
--- NOTE | 2019-11-03 12:14 | CT ---
HISTORYConfusion status post fall.STUDYBRAIN W/O CONCOMPARISONNone.TECHNIQUEMultiple axial images of the head were obtained from the skull base to the vertex without administration of IV contrast. Sagittal and coronal reformatted images were performed. Automated exposure control (AEC) was utilized to adjust the MA and/or kV.FINDINGSThe sulci, cisterns and ventricles are prominent consistent with mild diffuse volume loss. There are confluent and scattered foci of low attenuation in the periventricular and subcortical white matter of both hemispheres. This is a nonspecific finding which likely represents mild microangiopathic change in a patient of this age.There is no evidence of acute territorial infarction, hemorrhage, mass, mass effect or midline shift. There are no abnormal intra-axial or extra-axial fluid collections.The visualized paranasal sinuses and mastoid air cells are predominantly clear. There is no evidence of acute osseous abnormality or significant soft tissue swelling.IMPRESSION1. No evidence of acute intracranial abnormality.2. Mild nonspecific white matter change and volume loss.3. If there is strong clinical concern for acute intracranial abnormality, then an MRI examination of the brain could be performed for further evaluation. However, if there are no deficits on neurologic exam, there are no abnormalities identified on this study which require immediate imaging follow-up on an emergent basis. Follow-up MRI could be considered on an outpatient basis as clinically warranted.Electronically signed by: PATRICIA KHAN (Nov 03, 2019 12:12:58)
[2019-11-03] MEDS ORDERED: NS 1000 ML 1,000 ML ONE ×3 (12:18→14:35)
--- NOTE | 2019-11-03 12:36 | RAD ---
HISTORYFever, N/VSTUDYCHEST, 1 VIEW, done [id number]/19/2019.FINDINGSCurrent examination is considerably more expiratory.The trachea is midline. The cardiac silhouette is unremarkable . The lungs are clear without focal infiltrate o r effusion. The bony thorax is unremarkable.IMPRESSIONNo acute cardiopulmonary disease.Electronicall y signed by: ELIZABETH WRAY (Nov 03, 2019 12:34:51)
[2019-11-03 13:33] LABS: BILIRUBIN,URINE NEGATIVE (NEGATIVE); BLOOD/HEMOGLOBIN,URINE NEGATIVE (NEGATIVE); GLUCOSE, URINE NEGATIVE (NEGATIVE); KETONES,URINE NEGATIVE (NEGATIVE); LEUKOCYTE ESTERASE ,URINE NEGATIVE (NEGATIVE); NITRITES,URINE NEGATIVE (NEGATIVE); PROTEIN,URINE 2+ (NEGATIVE); UROBILINOGEN,URINE NORMAL (NORMAL)
[2019-11-03 13:35] LABS: APPEARANCE,URINE CLEAR (CLEAR); COLOR,URINE YELLOW (YELLOW)
[2019-11-03 13:42] LABS: AMORPHOUS SEDIMENT,UR 1+ /HPF (NEGATIVE); BACTERIA,URINE NEGATIVE /HPF (NEGATIVE); RBC,URINE 0-2 /HPF (0-3); SQUAMOUS EPITHELIAL CELL,UR RARE /HPF (NEGATIVE)
[2019-11-03] MEDS: NS 1000 ML 1,000 ML IV SCH (14:49)
[2019-11-03] MEDS ORDERED: NS 100 ML IV + SPIKE MINIBAG* 100 ML IV ONE (15:13)
[2019-11-03] MEDS ORDERED: ROCEPHIN VIAL 1 GRAM ONE (15:13)
[2019-11-03] MEDS ORDERED: ROCEPHIN VIAL 1 GRAM 1 G in NS 100 ML IV + SPIKE MINIBAG* 100 ML IV SCH (15:15)
[2019-11-03] MEDS ORDERED: ROCEPHIN VIAL 2 GRAMS 2 G in NS 100 ML IV + SPIKE MINIBAG* 100 ML IV SCH (16:00)
[2019-11-03] MEDS: PERCOCET TAB 5/325 MG PO PRN (18:39)
[2019-11-03] MEDS ORDERED: PATIENT'S HOME MEDICATION (Oxycodone-Acetaminophen 1 TAB) PO PRN (19:10)
[2019-11-03] MEDS ORDERED: HumaLOG SC PRN (19:10)
[2019-11-03] MEDS ORDERED: NS 1000 ML 1,000 ML IV SCH (19:10)
[2019-11-03] MEDS ORDERED: XANAX PO PRN (19:10)
[2019-11-03] MEDS ORDERED: COREG TAB 12.5 MG PO SCH (21:00)
[2019-11-03] MEDS: HumuLIN R SUBCUT PRN (21:03)
[2019-11-03] MEDS: SNACK - Diabetic Appropriate PO SCH (21:05)
[2019-11-03] MEDS: MONOKET or IMDUR PO SCH (21:48)
[2019-11-03] MEDS: FLOMAX PO SCH (21:48)
[2019-11-03] MEDS: ROCEPHIN VIAL 1 GRAM 1 G in NS 100 ML IV + SPIKE MINIBAG* 100 ML IV SCH (21:49)
[2019-11-03] MEDS: NEURONTIN TAB 600 MG PO SCH (21:49)
[2019-11-03] MEDS: PROTONIX TAB 40 MG PO SCH (21:49)
[2019-11-04 05:41] LABS: BASOPHILS # (AUTO) 0.2 X10^3/uL (0.0-0.1); BASOPHILS % (AUTO) 1.9 % (0.2-1.0); EOSINOPHILS # (AUTO) 0.1 x10^3/uL (0.0-0.2); EOSINOPHILS % (AUTO) 0.6 % (0.9-2.9); HEMATOCRIT 35.1 % (42.0-54.0); HEMOGLOBIN 12.1 g/dL (13.5-18.0); LYMPHOCYTES # (AUTO) 0.9 X10^3/uL (1.3-2.9); LYMPHOCYTES % (AUTO) 10.3 % (21.0-51.0); MEAN CORPUSCULAR HEMOGLOBIN 29.8 pg (27.0-34.0); MEAN CORPUSCULAR HGB CONC 34.6 g/dL (33.0-35.0); MEAN CORPUSCULAR VOLUME 86.2 fL (80.0-100.0); MEAN PLATELET VOLUME 6.8 fL (7.4-11.0); NEUTROPHILS # (AUTO) 6.9 x10^3/uL (2.2-4.8); NEUTROPHILS % (AUTO) 76.2 % (42.0-75.0); PLATELET COUNT 148 X10^3/uL (150.0-450.0); RED BLOOD COUNT 4.07 X10^6/uL (4.7-6.0); RED CELL DISTRIBUTION WIDTH 17.4 % (11.6-16.5)
--- NOTE | 2019-11-04 06:37 | RAD ---
HISTORYIleusSTUDYKUBCOMPARISONNoneFINDINGSThe abdominal gas pattern is nonspecific and nonobstructive . No abnormal masses or abnormal calcifications are identified. The regional skeleton is intact.IMPRE SSIONUnremarkable KUBElectronically signed by: SUSI BEJARANO (Nov 04, 2019 06:36:24)
[2019-11-04 08:47] LABS: ALANINE AMINOTRANSFERASE 31 Units/L (12-78); ALBUMIN 2.6 g/dL (3.4-5.0); ALKALINE PHOSPHATASE 30 Units/L (46-116); ASPARTATE AMINO TRANSFERASE 25 Units/L (15-37); BLOOD UREA NITROGEN 16 mg/dL (7-18); CALCIUM 8.4 mg/dL (8.5-10.1); CARBON DIOXIDE 27.4 mmol/L (21-32); CHLORIDE 102 mmol/L (98-107); COR CA(FOR HYPOALB) 9.5 mg/dL (8.5-10.1); COR NA(FOR HYPERGLY) 138 mmol/L (136-145); CREATININE 0.88 mg/dL (0.70-1.30); SODIUM 137 mmol/L (136-145); TOTAL PROTEIN 6.2 g/dL (6.4-8.2); eGFR NON BLACK RACES > 60 (>60)
[2019-11-04] MEDS: ROCEPHIN VIAL 1 GRAM 1 G in NS 100 ML IV + SPIKE MINIBAG* 100 ML IV SCH ×2 (09:00→20:30)
[2019-11-04] MEDS: MONOKET or IMDUR PO SCH ×2 (09:00→20:38)
[2019-11-04] MEDS: COLACE CAP 100 MG PO SCH (09:00)
[2019-11-04] MEDS: ZYLOPRIM PO SCH (09:00)
[2019-11-04] MEDS: ASPIRIN EC 81 MG PO SCH (09:00)
[2019-11-04] MEDS: CRESTOR TAB 10 MG PO SCH (09:00)
[2019-11-04] MEDS: FOLIC ACID TAB 1 MG PO SCH (09:00)
[2019-11-04] MEDS: GLUCOPHAGE XR 24-HR PO SCH (09:00)
[2019-11-04] MEDS: NEURONTIN TAB 600 MG PO SCH ×2 (09:00→20:30)
[2019-11-04] MEDS: PLAVIX PO SCH (09:00)
[2019-11-04] MEDS: TAB-A-VITE PO SCH (09:00)
[2019-11-04] MEDS: PROTONIX TAB 40 MG PO SCH ×3 (10:10→21:51)
[2019-11-04] MEDS: LOVENOX INJ 40 MG SYR SC SCH (10:11)
[2019-11-04] MEDS: HumuLIN R SUBCUT PRN ×2 (12:18→17:16)
--- NOTE | 2019-11-04 13:02 | DR.H&P ---
H&P - History & Physical for Day of: H&P Date: 11/03/19 - Chief Complaint Chief Complaint: FEVER, CONFUSION, FALL, DIZZINESS, N/V - History of Present Illness History of Present Illness: A 69 y/o male brought to the ED by his spouse for evaluation of fever and confusion. He denies dyspnea, cough, diaphoresis, diaphoresis or recent travel. His spouse states that he was in the hospital here from 10/02/2019 to 10/05/2019 and treated for a UTI. But the confusion worsened today. He has been nauseated and with some vomiting. Pt co being very dizzy, resulted in fall [employer]. Pt has PMH of DM, CAD, RA, HTN, OA, DASHA, LSPINE DDD. - Past Medical History Past Medical History: [place], Coronary Artery Disease, Hypertension, Diabetes, GERD, Arthritis, Kidney Stones Additional Medical History: POLYCYTHEMIA - Past Surgical History Surgical History: Angioplasty/Stents, Cholecystectomy - Family History Family Medical History: [place] - Social History Does patient currently use any type of tobacco product: No Have you used tobacco products in the last 12 months: No Type of Tobacco Use: None Does any household member use tobacco: No Alcohol Use: None Drug Use: None - Medications Home Medications: nalbuphine [From Nubain] Adverse Reaction (Verified 11/03/19 17:24) - Review of Systems Constitutional: Fever, Weakness Eyes: No Symptoms Reported ENT: No Symptoms Reported Respiratory: denies: Shortness of Breath Cardiovascular: Light Headedness. denies: Chest Pain Gastrointestinal: Nausea, Vomiting. denies: Diarrhea, Constipation Genitourinary: Frequency Musculoskeletal: Back Pain Skin: Wound Neurological: Weakness, Other (DIZZINESS) - Physical Exam Vital Signs: Temperature 98.0 F Pulse Rate [Right Brachial] 89 Pulse Rate 108 Respiratory Rate 20 Blood Pressure [Right Arm] 129/69 Blood Pressure 108/52 O2 Sat by Pulse Oximetry 97 Oriented: Normal Eyes: Normal Ear: Normal Nose: Normal Throat: Dry Respiratory: RLL Diminished, LLL Diminished Cardiovascular: Normal : Normal Auscultation: Bowel Sounds: Normal Palpation: Normal Tenderness: Normal Skin: Decreased Turgur Musculoskeletal: Back:Thoracic, Back:Lumbar Psychiatric: Anxiety Mood Description: Calm Affect: Anxious Speech Pattern: Clear, Appropriate - Assessment/Plan (1) Sepsis due to urinary tract infection Status: Acute Plan: ADMIT, BLOOD AND URINE CULTURES ON ADMISSION. GENTLE IV HYDRATION. STRICT I & OS, EKG AND CXR ON ADMISSION. IV ROCEPHIN, BS CONTROL, HOLD ANTIHYPERTENSIVES DUE TO HYPOTENSION, VERIFY HOME MEDICATION. CT HEAD ON ADMISSION IN ER, FLU AND STREP SCREEN ON ADMISSION (2) Dizziness Status: Acute (3) Acute dehydration Status: Acute (4) Diabetes Qualifiers: Diabetes mellitus type: type 2 Diabetes mellitus terminal makeup operator insulin use: without terminal makeup operator use Diabetes mellitus complication status: with kidney complications Diabetes mellitus complication detail: with chronic kidney disease Chronic kidney disease stage: stage 2 (mild) Qualified Code(s): E11.22 - Type 2 diabetes mellitus with diabetic chronic kidney disease; N18.2 - Chronic kidney disease, stage 2 (mild) Status: Acute (5) Fever Qualifiers: Fever type: unspecified Qualified Code(s): R50.9 - Fever, unspecified Status: Acute (6) Hypotension Qualifiers: Hypotension type: unspecified hypotension type Qualified Code(s): I95.9 - Hypotension, unspecified Status: Acute (7) Rheumatoid aortitis Status: Acute (8) CAD (coronary artery disease) Status: Chronic (9) DASHA (generalized anxiety disorder) Status: Chronic (10) Hyperlipidemia Status: Chronic - Allergies Allergies/Adverse Reactions: Allergies Allergy/AdvReac Type Severity Reaction Status Date / Time nalbuphine [From Nubain] AdvReac Verified 11/03/19 17:24
--- NOTE | 2019-11-04 13:17 | PCM.PROG ---
Progress Note - Progress Note for Day of Date of Exam: 11/04/19 - Subjective Subjective: PT IS 69 WM ER ADMISSION WITH UROSEPSIS. PT IS CURRENTLY ON IV ROCPEHIN IV Q 12, BLOOD AND URINE CULTURES OBTAINED ON ADMISSION. PT HAD LOW GRADE FEVER LATE YESTERDAY EVENING. PT MORE AWAKE AND ALERT THIS AM. CO MID BACK PAIN AND CHRONIC PAIN TO LOWER BACK. CO DIZZINESS. PT STATES HE HAS BEEN HAVING DIZZY SPELLS SINCE PREVIOUS VISIT. WBC 9.0 THIS AM. NA UP TO 137, DECREASE NS TO 50CC/HR. PLAN TO OBTAIN CAROTID ARTERY US TODAY AND CT ABD/PELVIS FOR R/O LOWER URINARY TRACT OBSTRUCTION. PT RECENT HX OF ENLARGED PROSTATE AND PROSTATITIS. - Past Medical Family Social History Past Med/Fam/Surg Hx: No changes since H&P Allergies: Allergies nalbuphine [From Nubain] Adverse Reaction (Verified 11/03/19 17:24) - Review of Systems ROS: No change since H&P - Vital Signs and I&O's Vital Signs: Temperature 98.5 F Pulse Rate [Right Brachial] 98 Pulse Rate 108 Respiratory Rate 20 Blood Pressure [Right Arm] 125/74 Blood Pressure 108/52 O2 Sat by Pulse Oximetry 95 Intake and Output: Intake & Output 11/02/19 11/03/19 11/04/19 11/05/19 11:59 11:59 11:59 11:59 Intake Total 1410 / 1410 Output Total 2500 / 2500 Balance -1090 / -1090 - Physical Exam Oriented: Normal Eyes: Normal Ear: Normal Nose: Normal Throat: Dry Respiratory: Diminished Cardiovascular: Normal : Normal Auscultation: Bowel Sounds: Normal Tenderness: Normal Skin: Decreased Turgur Musculoskeletal: Back:Thoracic, Back:Lumbar Psychiatric: Anxiety Mood Description: Calm Affect: Anxious Speech Pattern: Clear, Appropriate - Laboratory and Diagnostics Result Diagrams: 11/04/19 05:11 11/04/19 05:11 Labs: 11/03/19 13:19 Urine,Clean Catch Urine Culture - Preliminary Laboratory WBC 9.0 X10^3/uL (3.6-10.0) D 11/04/19 05:11 RBC 4.07 X10^6/uL (4.7-6.0) L 11/04/19 05:11 Hgb 12.1 g/dL (13.5-18.0) L D 11/04/19 05:11 Hct 35.1 % (42.0-54.0) L 11/04/19 05:11 MCV 86.2 fL (80.0-100.0) 11/04/19 05:11 MCH 29.8 pg (27.0-34.0) 11/04/19 05:11 MCHC 34.6 g/dL (33.0-35.0) 11/04/19 05:11 RDW 17.4 % (11.6-16.5) H 11/04/19 05:11 Plt Count 148 X10^3/uL (150.0-450.0) L 11/04/19 05:11 MPV 6.8 fL (7.4-11.0) L 11/04/19 05:11 Neut % (Auto) 76.2 % (42.0-75.0) H 11/04/19 05:11 Lymph % (Auto) 10.3 % (21.0-51.0) L 11/04/19 05:11 [place] % (Auto) 11.0 % (0.0-13.0) 11/04/19 05:11 Eos % (Auto) 0.6 % (0.9-2.9) L 11/04/19 05:11 Baso % (Auto) 1.9 % (0.2-1.0) H 11/04/19 05:11 Neut # (Auto) 6.9 x10^3/uL (2.2-4.8) H 11/04/19 05:11 Lymph # (Auto) 0.9 X10^3/uL (1.3-2.9) L 11/04/19 05:11 [place] # (Auto) 1.0 x10^3/uL (0.3-0.8) H 11/04/19 05:11 Eos # (Auto) 0.1 x10^3/uL (0.0-0.2) 11/04/19 05:11 Baso # (Auto) 0.2 X10^3/uL (0.0-0.1) H 11/04/19 05:11 Absolute Nucleated RBC 0.0 /100WBC 11/04/19 05:11 Sodium 137 mmol/L (136-145) 11/04/19 05:11 Corrected Sodium 138 mmol/L (136-145) 11/04/19 05:11 Potassium 4.2 mmol/L (3.5-5.1) 11/04/19 05:11 Chloride 102 mmol/L (98-107) 11/04/19 05:11 Carbon Dioxide 27.4 mmol/L (21-32) 11/04/19 05:11 BUN 16 mg/dL (7-18) 11/04/19 05:11 Creatinine 0.88 mg/dL (0.70-1.30) 11/04/19 05:11 Est GFR (MDRD) Af Amer > 60 (>60) 11/04/19 05:11 Est GFR (MDRD) Non-Af > 60 (>60) 11/04/19 05:11 Glucose 128 mg/dL (65-99) H 11/04/19 05:11 POC Glucose (mg/dL) 194 mg/dL (65-99) H 11/03/19 20:44 Lactic Acid 0.8 mmol/L (0.4-2.0) 11/03/19 14:28 Calcium 8.4 mg/dL (8.5-10.1) L 11/04/19 05:11 Corrected Calcium 9.5 mg/dL (8.5-10.1) 11/04/19 05:11 Total Bilirubin 0.30 mg/dL (0.2-1.0) 11/04/19 05:11 AST 25 Units/L (15-37) 11/04/19 05:11 ALT 31 Units/L (12-78) 11/04/19 05:11 Alkaline Phosphatase 30 Units/L (46-116) L 11/04/19 05:11 Total Protein 6.2 g/dL (6.4-8.2) L 11/04/19 05:11 Albumin 2.6 g/dL (3.4-5.0) L 11/04/19 05:11 Globulin 3.6 g/dL (2.5-4.5) 11/04/19 05:11 Albumin/Globulin Ratio 0.7 Ratio (1.1-2.1) L 11/04/19 05:11 TSH 3rd Generation 0.693 uIU/mL (0.358-3.74) 11/03/19 11:32 Specimen Type Clean catch urine 11/03/19 13:19 Urine Color Yellow (YELLOW) 11/03/19 13:19 Urine Appearance Clear (CLEAR) 11/03/19 13:19 Urine pH 6.0 (5.0 - 8.0) 11/03/19 13:19 Ur Specific [place] 1.010 (1.000-1.030) 11/03/19 13:19 Urine Protein 2+ (NEGATIVE) 11/03/19 13:19 Urine Glucose (UA) Negative (NEGATIVE) 11/03/19 13:19 Urine Ketones Negative (NEGATIVE) 11/03/19 13:19 Urine Occult Blood Negative (NEGATIVE) 11/03/19 13:19 Urine Nitrite Negative (NEGATIVE) 11/03/19 13:19 Urine Bilirubin Negative (NEGATIVE) 11/03/19 13:19 Urine Urobilinogen Normal (NORMAL) 11/03/19 13:19 Ur Leukocyte Esterase Negative (NEGATIVE) 11/03/19 13:19 Urine RBC 0-2 /HPF (0-3) 11/03/19 13:19 Urine WBC 3-5 /HPF (0-5) 11/03/19 13:19 Ur Squamous Epith Cells Rare /HPF (NEGATIVE) 11/03/19 13:19 Amorphous Sediment 1+ /HPF (NEGATIVE) 11/03/19 13:19 Urine Bacteria Negative /HPF (NEGATIVE) 11/03/19 13:19 Ur Culture Indicated? No/not indicated 11/03/19 13:19 Influenza Type A (PCR) Negative (NEGATIVE) 11/03/19 16:37 Influenza Type B (PCR) Negative (NEGATIVE) 11/03/19 16:37 S. pyogenes (TEM-PCR) Not detected (NOT DETECT) 11/03/19 11:11 - Plan (1) Sepsis due to urinary tract infection Status: Acute Plan: BLOOD AND URINE CULTURES ON ADMISSION. GENTLE IV HYDRATION. STRICT I & OS, EKG AND CXR ON ADMISSION. IV ROCEPHIN, BS CONTROL. HOLD LISINOPRIL AND RESUME COREG AT 6.25 BID AND CONTINUE TO MONITOR. CT HEAD ON ADMISSION IN ER, FLU AND STREP SCREEN ON ADMISSION WERE NEGATIVE (2) Dizziness Status: Acute (3) Acute dehydration Status: Acute (4) Diabetes Status: Acute Qualifiers: Diabetes mellitus type: type 2 Diabetes mellitus intermodal owner operator truck driver insulin use: without intermodal owner operator truck driver use Diabetes mellitus complication status: with kidney complications Diabetes mellitus complication detail: with chronic kidney disease Chronic kidney disease stage: stage 2 (mild) Qualified Code(s): E11.22 - Type 2 diabetes mellitus with diabetic chronic kidney disease; N18.2 - Chronic kidney disease, stage 2 (mild) (5) Fever Status: Acute Qualifiers: Fever type: unspecified Qualified Code(s): R50.9 - Fever, unspecified (6) Hypotension Status: Acute Qualifiers: Hypotension type: unspecified hypotension type Qualified Code(s): I95.9 - Hypotension, unspecified (7) Rheumatoid aortitis Status: Acute (8) CAD (coronary artery disease) Status: Chronic (9) DASHA (generalized anxiety disorder) Status: Chronic (10) Hyperlipidemia Status: Chronic
--- NOTE | 2019-11-04 13:25 | VAS ---
HISTORYAcute on chronic dizziness, altered mental status, syncope, and dizziness.HISTORY: Concern for carotid artery stenosis. [Carotid atherosclerosis].EXAM: BILATERAL DOPPLER CAROTID ULTRASOUND EXAMTechnique: Multiple loyola scale and color flow Doppler images of the right and left carotid arterial system were obtained. The vertebral arterial system was evaluated as well.Findings:Nonocclusive color flow Doppler is seen throughout the right and left carotid arterial system. No there elevated velocities in the right CCA in the 50-69 percent stenosis range based on velocity criteria. There is [moderate] atherosclerosis and [hard atherosclerotic] plaque formation of the bilateral carotid bulbs and ICAs with associated intimal thickening but [without] evidence for high-grade stenosis (>70%) or occlusion of the carotid arteries. The right and left vertebral artery demonstrate antegrade flow.IMPRESSION:Elevated velocities in the right CCA in the 50-69% stenosis range.[Moderate] atherosclerosis and [hard atherosclerotic] plaque formation of the bilateral carotid bulbs and [in both] ICAs with associated carotid intimal thickening but without evidence for any additional high-grade stenosis or occlusion of the carotid arteries, based on Doppler velocity criteria. Appropriate, antegrade, vertebral arterial flow.Peak right ICA velocity: [108] centimeter/seconds.Peak right CCA velocity: [138] centimeter/seconds.Peak left ICA velocity: [123] centimeter/seconds.Peak left CCA velocity: [80] centimeter/seconds.Right ICA to CCA ratio: [1.7].Left ICA to CCA ratio: [1.7].Electronically signed by: ANAYA ZARATE III (Nov 04, 2019 13:23:38)
--- NOTE | 2019-11-04 13:26 | CT ---
HISTORYFever, urosepsisSTUDYABDOMEN/PELVIS W/O CONTechnique: Axial noncontrast images with coronal and sagittal reformats. Dose reduction procedures were used with mA/kv adjusted for body size. THIS EXAMINATION IS LIMITED DUE TO THE LACK OF INTRAVENOUS AND ORAL CONTRAST. The examination was performed in this manner at the sole discretion of the ordering caregiver.COMPARISONFebruary 2019FINDINGSThe lung bases are clear. Coronary artery calcifications are present. The liver, spleen, adrenal glands, and pancreas are within normal limits only to the limitations of an unenhanced examination. Patient is status post cholecystectomy. The kidneys are unobstructed no left renal calculi are identified. There is a 1.5 mm right midpole renal calculus present. No ureteral calculi are identified. The appendix is normal. Calcific atherosclerotic change is present in a nondilated abdominal aorta. No intraperitoneal or retroperitoneal lymphadenopathy of significance is identified. There are no findings suggestive of enteritis, colitis, or diverticulitis. Examination of the pelvis demonstrated no evidence for pelvic masses, pelvic fluid, or pelvic lymphadenopathy. No bladder abnormality is identified. The prostate gland is enlarged. No lytic or blastic skeletal lesions of significance are identified.IMPRESSIONNo evidence for obstructing renal or ureteral calculiNo evidence for urinary tract obstruction1.5 mm nonobstructing right midpole renal calculusEnlarged prostate glandElectronically signed by: SUSI BEJARANO (Nov 04, 2019 13:25:35)
[2019-11-04] MEDS: COREG TAB 6.25 MG PO SCH ×2 (13:33→20:30)
[2019-11-04] MEDS: NS 1000 ML 1,000 ML IV SCH ×3 (15:57→17:15)
[2019-11-04] MEDS: FLOMAX PO SCH (20:30)
[2019-11-04] MEDS: SNACK - Diabetic Appropriate PO SCH (20:30)
[2019-11-04] MEDS ORDERED: COREG TAB 12.5 MG PO SCH (21:00)
[2019-11-05] MEDS: NS 1000 ML 1,000 ML IV SCH ×2 (03:53→11:30)
[2019-11-05 05:54] LABS: BASOPHILS % (AUTO) 0.6 % (0.2-1.0); EOSINOPHILS # (AUTO) 0.1 x10^3/uL (0.0-0.2); EOSINOPHILS % (AUTO) 1.5 % (0.9-2.9); HEMATOCRIT 34.8 % (42.0-54.0); HEMOGLOBIN 12.1 g/dL (13.5-18.0); LYMPHOCYTES # (AUTO) 1.2 X10^3/uL (1.3-2.9); LYMPHOCYTES % (AUTO) 15.9 % (21.0-51.0); MEAN CORPUSCULAR HEMOGLOBIN 30.1 pg (27.0-34.0); MEAN CORPUSCULAR HGB CONC 34.8 g/dL (33.0-35.0); MEAN CORPUSCULAR VOLUME 86.6 fL (80.0-100.0); MONOCYTES # (AUTO) 0.9 x10^3/uL (0.3-0.8); MONOCYTES % (AUTO) 11.8 % (0.0-13.0); NEUTROPHILS # (AUTO) 5.1 x10^3/uL (2.2-4.8); NEUTROPHILS % (AUTO) 70.2 % (42.0-75.0); PLATELET COUNT 159 X10^3/uL (150.0-450.0); RED BLOOD COUNT 4.02 X10^6/uL (4.7-6.0); RED CELL DISTRIBUTION WIDTH 16.6 % (11.6-16.5); WHITE BLOOD COUNT 7.3 X10^3/uL (3.6-10.0)
[2019-11-05 06:08] LABS: ALANINE AMINOTRANSFERASE 28 Units/L (12-78); ALBUMIN 2.6 g/dL (3.4-5.0); ALKALINE PHOSPHATASE 34 Units/L (46-116); ASPARTATE AMINO TRANSFERASE 22 Units/L (15-37); BLOOD UREA NITROGEN 10 mg/dL (7-18); CALCIUM 8.8 mg/dL (8.5-10.1); CARBON DIOXIDE 28.2 mmol/L (21-32); CHLORIDE 103 mmol/L (98-107); COR CA(FOR HYPOALB) 9.9 mg/dL (8.5-10.1); COR NA(FOR HYPERGLY) 140 mmol/L (136-145); CREATININE 0.85 mg/dL (0.70-1.30); PLATELET MORPHOLOGY COMMENT NORMAL (NORMAL); SODIUM 138 mmol/L (136-145); TOTAL PROTEIN 6.5 g/dL (6.4-8.2); eGFR NON BLACK RACES > 60 (>60)
[2019-11-05] MEDS: ROCEPHIN VIAL 1 GRAM 1 G in NS 100 ML IV + SPIKE MINIBAG* 100 ML IV SCH (08:38)
[2019-11-05] MEDS: ZYLOPRIM PO SCH (08:39)
[2019-11-05] MEDS: COLACE CAP 100 MG PO SCH (08:40)
[2019-11-05] MEDS: TAB-A-VITE PO SCH (08:40)
[2019-11-05] MEDS: MONOKET or IMDUR PO SCH (08:49)
[2019-11-05] MEDS: COREG TAB 6.25 MG PO SCH (08:50)
[2019-11-05] MEDS: PROTONIX TAB 40 MG PO SCH (08:50)
[2019-11-05] MEDS: ASPIRIN EC 81 MG PO SCH (08:50)
[2019-11-05] MEDS: NEURONTIN TAB 600 MG PO SCH (08:51)
[2019-11-05] MEDS: CRESTOR TAB 10 MG PO SCH (08:51)
[2019-11-05] MEDS: FOLIC ACID TAB 1 MG PO SCH (08:51)
[2019-11-05] MEDS: GLUCOPHAGE XR 24-HR PO SCH (08:52)
[2019-11-05] MEDS: PERCOCET TAB 5/325 MG PO PRN (09:08)
[2019-11-05] MEDS: PLAVIX PO SCH (09:34)
[2019-11-05] MEDS: LOVENOX INJ 40 MG SYR SC SCH (11:29)
[2019-11-05 12:40] VITALS: BP 125/69
--- NOTE | 2019-11-05 14:47 | CT ---
HISTORY:Carotid stenosis, dizziness, syncopeStudy: CT angiography of the neck with and without contrastComparison:Ultrasound 11/04/2019Technique:Multiple axial images of the neck obtained after the administration of IV contrast using CTA protocol. 3D reconstructions were performed utilizing radial maximum intensity projection imaging. Dose reduction techniques including Automated Exposure Control (AEC) and adjustment of mA and kV were utilized.Findings:There is moderate mixed density calcified and fibro fatty plaque at the bilateral carotid bifurcations. There is less than 50 %stenosis of the internal carotid arteries by NASCET criteria. Normal appearance of the visualized aortic arch. Bilateral vertebral arteries are patent. The visualized lungs are clear. There are advanced degenerative changes of the cervical spine with multilevel disc disease, uncovertebral spurring and facet arthropathy resulting foraminal stenosis most prominent at C5-C6 and C6-C7. There is anterolisthesis of C3 on C4 approximately 5 mm resulting moderate spinal canal stenosis and severe bilateral foraminal stenosis.IMPRESSION:1. Moderate mixed density atherosclerotic plaque at the bilateral carotid bifurcations with less than 50 % stenosis by NASCET criteria.2. Patent bilateral vertebral arteries.3. Advanced cervical degenerative changes as described.Electronically signed by: MANFRED CANCINO (Nov 05, 2019 14:46:16)
[2019-11-05] MEDS ORDERED: DURAGESIC 75 mcg/HR PATCH TD SCH (20:00)
== END 2019-11-05 16:10 | disposition home or self-care (01) ==
LOC: SUPCPDRO → ER 11:05 → MED/SURG 11:05
PROVIDERS: ADMIT Internal Medicine; ATTEND Internal Medicine
DX: K56.7 Ileus, unspecified; E86.0 Dehydration; N18.2 Chronic kidney disease, stage 2 (mild); Z91.81 History of falling; N39.0 Urinary tract infection, site not specified; I95.89 Other hypotension; R41.82 Altered mental status, unspecified; I01.1 Acute rheumatic endocarditis; M06.9 Rheumatoid arthritis, unspecified; E11.65 Type 2 diabetes mellitus with hyperglycemia; N20.0 Calculus of kidney; A41.89 Other specified sepsis; N40.0 Benign prostatic hyperplasia without lower urinary tract symptoms; R42 Dizziness and giddiness; R11.2 Nausea with vomiting, unspecified; R55 Syncope and collapse; E11.22 Type 2 diabetes mellitus with diabetic chronic kidney disease
CPT/HCPCS: 36415; 70450; 70498; 71010; 71045; 74000; 74018; 74176; 80053; 81001; 83605; 84443; 85025; 87040; 87086; 87502; 87651; 93880; 96365; 96367; 96374; 97162; 99284; A4222; G0378; J0696; J1815; J3490; J7030; J7050

== ENCOUNTER 2022-08-13 00:12 | Observation (INO) ==
[2022-08-13 00:29] VITALS: BMI 25.0
--- NOTE | 2022-08-13 00:37 | DR.AMS ---
HPI Time Seen Time Seen by Provider: 08/13/22 00:37 PCP Primary Care Physician: EDUARDO Complaint Chief Complaint:: STATES" HE'S BEEN RUNNING A FEVER AND HE WAS GOING TO THE BATHROOM EVERY FEW MINUTES LAST NIGHT HE HAD SOME BLOOD IN HIS URINE EARLIER TODAY" Source History Provided: Family Member Mode of Arrival Mode of Arrival: Ambulatory Timing Onset of Chief Complaint: 08/12/22 PMH PMH Past Medical History: Yes Past Medical History: Arthritis, Coronary Artery Disease, Diabetes, GERD, Hypertension, Kidney Stones and [place] Past Surgical History: Yes Surgical History: Angioplasty/Stents and Cholecystectomy Family History History of Family Medical Conditions: Yes Family Medical History: [place] and Hypertension Social History Does any household member use tobacco: No Alcohol Use: Occasionally Do you use any recreational Drugs:: No Lives With: Family Lives Where: Home Infectious screening In the last 2 months have you had wt loss of >10#?: NO Have you had fever, night sweats or hemotysis?: No Have you traveled outside the country in the last 6 months?: No Isolation: Standard PE Vitals Vital Signs: Temp Pulse Pulse Resp BP BP Pulse Ox 04/11/21 20:42 142/75 11/05/19 12:00 125/69 08/13/22 03:45 114 H 24 08/13/22 03:45 134/65 08/13/22 02:05 22 08/13/22 03:30 113 H 23 08/13/22 03:30 140/67 08/13/22 03:16 114 H 23 08/13/22 03:33 100.3 F H 08/13/22 03:00 114 H 25 H 08/13/22 03:00 140/63 08/13/22 02:45 115 H 22 08/13/22 02:45 131/59 08/13/22 02:30 118 H 21 08/13/22 02:30 131/53 08/13/22 02:15 120 H 27 H 08/13/22 02:15 162/65 08/13/22 02:01 152/67 08/13/22 02:00 122 H 35 H 94 L 08/13/22 01:48 137/64 08/13/22 01:48 120 H 27 H 98 08/13/22 01:48 137/64 08/13/22 01:45 118 H 17 96 08/13/22 01:39 122 H 31 H 96 08/13/22 01:15 121 H 18 96 08/13/22 01:07 122 H 19 95 08/13/22 01:56 101 F H 08/13/22 00:29 123 H 22 143/74 95 08/13/22 01:05 20 08/13/22 00:13 103.1 F H 126 H 26 H 142/73 96 O2 Del Method 04/11/21 20:42 11/05/19 12:00 08/13/22 03:45 08/13/22 03:45 08/13/22 02:05 08/13/22 03:30 08/13/22 03:30 08/13/22 03:16 08/13/22 03:33 08/13/22 03:00 08/13/22 03:00 08/13/22 02:45 08/13/22 02:45 08/13/22 02:30 08/13/22 02:30 08/13/22 02:15 08/13/22 02:15 08/13/22 02:01 08/13/22 02:00 08/13/22 01:48 08/13/22 01:48 08/13/22 01:48 08/13/22 01:45 08/13/22 01:39 08/13/22 01:15 08/13/22 01:07 08/13/22 01:56 08/13/22 00:29 Room Air 08/13/22 01:05 08/13/22 00:13 Room Air ROR Labs Reviewed Result Diagrams: 08/13/22 00:32 08/13/22 00:32 Laboratory: WBC 20.6 X10^3/uL (3.6-10.0) H 08/13/22 00:32 RBC 5.77 X10^6/uL (4.7-6.0) 08/13/22 00:32 Hgb 12.5 g/dL (13.5-18.0) L 08/13/22 00:32 Hct 39.6 % (42.0-54.0) L 08/13/22 00:32 MCV 68.7 fL (80.0-100.0) L 08/13/22 00:32 MCH 21.6 pg (27.0-34.0) L 08/13/22 00:32 MCHC 31.4 g/dL (33.0-35.0) L 08/13/22 00:32 RDW 20.6 % (11.6-16.5) H 08/13/22 00:32 Plt Count 205 X10^3/uL (150.0-450.0) 08/13/22 00:32 Plt Count Comment Adequate (ADEQUATE) 08/13/22 00:32 MPV 8.1 fL (7.4-11.0) 08/13/22 00:32 Neut % (Auto) 80.1 % (42.0-75.0) H 08/13/22 00:32 Lymph % (Auto) 9.1 % (21.0-51.0) L 08/13/22 00:32 [place] % (Auto) 9.5 % (0.0-13.0) 08/13/22 00:32 Eos % (Auto) 0.3 % (0.9-2.9) L 08/13/22 00:32 Baso % (Auto) 1.0 % (0.2-1.0) 08/13/22 00:32 Neut # (Auto) 16.5 x10^3/uL (2.2-4.8) H 08/13/22 00:32 Lymph # (Auto) 1.9 X10^3/uL (1.3-2.9) 08/13/22 00:32 [place] # (Auto) 2.0 x10^3/uL (0.3-0.8) H 08/13/22 00:32 Eos # (Auto) 0.1 x10^3/uL (0.0-0.2) 08/13/22 00:32 Baso # (Auto) 0.2 X10^3/uL (0.0-0.1) H 08/13/22 00:32 Absolute Nucleated RBC 0.1 /100WBC 08/13/22 00:32 Plt Morphology Comment Normal (NORMAL) 08/13/22 00:32 RBC Morphology Abnormal (NORMAL) 08/13/22 00:32 Hypochromasia 1+ A 08/13/22 00:32 Anisocytosis 1+ A 08/13/22 00:32 Microcytosis 1+ A 08/13/22 00:32 PT 15.9 SECONDS (11.8-14.3) 08/13/22 00:32 INR Target Range - 08/13/22 00:32 INR 1.32 (0.8-1.3) H 08/13/22 00:32 APTT 31.6 SECONDS (22.9-36.5) 08/13/22 00:32 PTT Comment - 08/13/22 00:32 Sample Site Rr 08/13/22 00:22 ABG pH 7.570 (7.35-7.45) H* 08/13/22 00:22 ABG pCO2 31.0 mmHg (35.0-45.0) L 08/13/22 00:22 ABG pO2 66.0 mmHg (80.0-100.0) L 08/13/22 00:22 ABG HCO3 28.4 mmol/L (22-26) H 08/13/22 00:22 ABG O2 Saturation 95.0 % (90-100) 08/13/22 00:22 ABG Base Excess 6.5 mmol/L (-2.0-2.0) H 08/13/22 00:22 Patrick Test Pos 08/13/22 00:22 A-a Gradient 45.0 mmHg 08/13/22 00:22 FiO2 21.0 08/13/22 00:22 Blood Gas Comments Pierce well sw 08/13/22 00:22 Sodium 135 mmol/L (136-145) L 08/13/22 00:32 Corrected Sodium TNP 08/13/22 00:32 Potassium 3.9 mmol/L (3.5-5.1) 08/13/22 00:32 Chloride 97 mmol/L (98-107) L 08/13/22 00:32 Carbon Dioxide 30.0 mmol/L (21-32) 08/13/22 00:32 BUN 8 mg/dL (7-18) 08/13/22 00:32 Creatinine 1.24 mg/dL (0.70-1.30) 08/13/22 00:32 Est GFR (MDRD) Af Amer > 60 (>60) 08/13/22 00:32 Est GFR (MDRD) Non-Af > 60 (>60) 08/13/22 00:32 Glucose 93 mg/dL (65-99) 08/13/22 00:32 Lactic Acid 1.6 mmol/L (0.4-2.0) 08/13/22 00:32 Calcium 8.4 mg/dL (8.5-10.1) L 08/13/22 00:32 Corrected Calcium 9.0 mg/dL (8.5-10.1) 08/13/22 00:32 Phosphorus 2.1 mg/dL (2.6-4.7) L 08/13/22 00:32 Magnesium 1.2 mg/dL (2.0-2.9) L 08/13/22 00:32 Total Bilirubin 0.50 mg/dL (0.2-1.0) 08/13/22 00:32 AST 20 Units/L (15-37) 08/13/22 00:32 ALT 24 Units/L (12-78) 08/13/22 00:32 Alkaline Phosphatase 67 Units/L (46-116) 08/13/22 00:32 Creatine Kinase 29 Units/L (39-308) L 08/13/22 00:32 Troponin I High Sens 16.1 ng/L (4.0-60.0) 08/13/22 00:32 Total Protein 6.9 g/dL (6.4-8.2) 08/13/22 00:32 Albumin 3.2 g/dL (3.4-5.0) L 08/13/22 00:32 Globulin 3.7 g/dL (2.5-4.5) 08/13/22 00:32 Albumin/Globulin Ratio 0.9 Ratio (1.1-2.1) L 08/13/22 00:32 Amylase 44 Units/L (25-115) 08/13/22 00:32 Lipase 53 Units/L (73-393) L 08/13/22 00:32 Specimen Type Clean catch urine 08/13/22 02:06 Urine Color Dark yellow (YELLOW) 08/13/22 02:06 Urine Appearance Clear (CLEAR) 08/13/22 02:06 Urine pH 6.0 (5.0 - 8.0) 08/13/22 02:06 Ur Specific [place] 1.015 (1.000-1.030) 08/13/22 02:06 Urine Protein 2+ (NEGATIVE) 08/13/22 02:06 Urine Glucose (UA) Negative (NEGATIVE) 08/13/22 02:06 Urine Ketones Negative (NEGATIVE) 08/13/22 02:06 Urine Blood 3+ (NEGATIVE) 08/13/22 02:06 Urine Nitrite Negative (NEGATIVE) 08/13/22 02:06 Urine Bilirubin 1+ (NEGATIVE) 08/13/22 02:06 Urine Urobilinogen Normal (NORMAL) 08/13/22 02:06 Ur Leukocyte Esterase 3+ (NEGATIVE) 08/13/22 02:06 Urine RBC 3-5 /HPF (0-3) A 08/13/22 02:06 Urine WBC Tntc /HPF (0-5) A 08/13/22 02:06 Ur Squamous Epith Cells Rare /HPF (NEGATIVE) 08/13/22 02:06 Urine Bacteria Trace /HPF (NEGATIVE) 08/13/22 02:06 Ur Culture Indicated? Yes/culture set up 08/13/22 02:06 Influenza Type A Ag Negative-presumptive (NEGATIVE) 08/13/22 00:20 Influenza Type B Ag Negative-presumptive (NEGATIVE) 08/13/22 00:20 SARS CoV-2 RNA Rapid GORGE Negative (NEGATIVE) 08/13/22 00:25 Opioid Opioid Risk Tool Age (Ángel box if 16-45): No History of Preadolescent Sexual Abuse: No Total: 0 Total Score Risk Category: Low Risk Copyright: Gabe DURHAM predicting aberrant behaviors Discharge Plan Diagnosis Discharge Problem: Pylephlebitis, Fever, Altered mental state Discharge Plan Patient Disposition: 01 HOME, SELF-CARE Condition: Stable Orders to Discharge Patient Discharge Orders: Transfer (Routine); Ordered 08/13/22 Ordered By: JEREMY PALMA
--- NOTE | 2022-08-13 00:42 | EKG ---
Test Reason : SEPSIS WORKUP Blood Pressure : */* mmHG Vent. Rate : 124 BPM Atrial Rate : 124 BPM P-R Int : 164 ms QRS Dur : 74 ms QT Int : 274 ms P-R-T Axes : 36 10 45 degrees QTc Int : 393 ms Sinus tachycardia Otherwise normal ECG No previous ECGs available Confirmed by Damir Pollock ([id number]) on 08/13/2022 10:26:49 AM Referred By: Confirmed By: Damir Pollock
[2022-08-13 00:55] LABS: BASOPHILS # (AUTO) 0.2 X10^3/uL (0.0-0.1); EOSINOPHILS # (AUTO) 0.1 x10^3/uL (0.0-0.2); EOSINOPHILS % (AUTO) 0.3 % (0.9-2.9); HEMATOCRIT 39.6 % (42.0-54.0); HEMOGLOBIN 12.5 g/dL (13.5-18.0); LYMPHOCYTES # (AUTO) 1.9 X10^3/uL (1.3-2.9); LYMPHOCYTES % (AUTO) 9.1 % (21.0-51.0); MEAN CORPUSCULAR HEMOGLOBIN 21.6 pg (27.0-34.0); MEAN CORPUSCULAR HGB CONC 31.4 g/dL (33.0-35.0); MEAN CORPUSCULAR VOLUME 68.7 fL (80.0-100.0); MEAN PLATELET VOLUME 8.1 fL (7.4-11.0); MONOCYTES % (AUTO) 9.5 % (0.0-13.0); NEUTROPHILS # (AUTO) 16.5 x10^3/uL (2.2-4.8); NEUTROPHILS % (AUTO) 80.1 % (42.0-75.0); RED BLOOD COUNT 5.77 X10^6/uL (4.7-6.0); RED CELL DISTRIBUTION WIDTH 20.6 % (11.6-16.5); WHITE BLOOD COUNT 20.6 X10^3/uL (3.6-10.0)
[2022-08-13 00:57] LABS: INR 1.32 (0.8-1.3)
[2022-08-13] MEDS ORDERED: TYLENOL 500 MG TAB EXTRA STRENGTH PO ONE ×2 (00:59→01:00)
[2022-08-13 01:02] LABS: ABG BASE EXCESS 6.5 mmol/L (-2.0-2.0); ABG HCO3 28.4 mmol/L (22-26)
[2022-08-13 01:03] LABS: ABG ALLEN TEST POS
[2022-08-13 01:05] LABS: ALANINE AMINOTRANSFERASE 24 Units/L (12-78); ALBUMIN 3.2 g/dL (3.4-5.0); ALKALINE PHOSPHATASE 67 Units/L (46-116); AMYLASE 44 Units/L (25-115); ASPARTATE AMINO TRANSFERASE 20 Units/L (15-37); BLOOD UREA NITROGEN 8 mg/dL (7-18); CALCIUM 8.4 mg/dL (8.5-10.1); CHLORIDE 97 mmol/L (98-107); CREATINE KINASE 29 Units/L (39-308); CREATININE 1.24 mg/dL (0.70-1.30); LIPASE 53 Units/L (73-393); MAGNESIUM 1.2 mg/dL (2.0-2.9); PHOSPHORUS 2.1 mg/dL (2.6-4.7); SODIUM 135 mmol/L (136-145); TOTAL PROTEIN 6.9 g/dL (6.4-8.2); eGFR NON BLACK RACES > 60 (>60)
[2022-08-13 01:07] LABS: LACTIC ACID 1.6 mmol/L (0.4-2.0)
[2022-08-13 01:14] LABS: ANISOCYTOSIS 1+; HYPOCHROMASIA 1+; MICROCYTOSIS 1+; PLATELET MORPHOLOGY COMMENT NORMAL (NORMAL)
--- NOTE | 2022-08-13 02:02 | CT ---
History: STATES" HE'S BEEN RUNNING A FEVER AND HE WAS GOING TO THE BATHROOM EVERY FEW MINUTES LAST NIGHT HE HAD SOME BLOOD IN HIS URINE EARLIER TODAY"; AMS MO, CAD, HTN, DM, GERD, ARTHRITIS, KIDNEY STONES SX: ANGIO/STENTS, CHOLEExam :BRAIN W/O CONTechnique: Thin section axial ct images of the brain were obtained from the foramen magnum to the vertex without contrast. Sagittal and coronal reconstructions were also performed.Comparison: 11/03/2019Findings:The ventricles are within normal limits in size. No midline shift, mass effect or extra-axial fluid collections. No evidence of acute hemorrhage or acute macroinfarction. Mild cortical atrophy compatible with patient's age. Decreased attenuation in the periventricular and subcortical white matter consistent with microvascular ischemic white matter changes.The visualized paranasal sinuses and mastoids are unremarkable. The calvarium is intact.Impression:Mild cortical atrophy with microvascular ischemic white matter changes.No acute intracranial pathology.Electronically signed by: Levon Lyon (Aug 13, 2022 02:01:12)
[2022-08-13 02:25] LABS: BILIRUBIN,URINE 1+ (NEGATIVE); BLOOD/HEMOGLOBIN,URINE 3+ (NEGATIVE); GLUCOSE, URINE NEGATIVE (NEGATIVE); KETONES,URINE NEGATIVE (NEGATIVE); LEUKOCYTE ESTERASE ,URINE 3+ (NEGATIVE); NITRITES,URINE NEGATIVE (NEGATIVE); PROTEIN,URINE 2+ (NEGATIVE); UROBILINOGEN,URINE NORMAL (NORMAL)
[2022-08-13 02:42] LABS: APPEARANCE,URINE CLEAR (CLEAR); BACTERIA,URINE TRACE /HPF (NEGATIVE); COLOR,URINE DARK YELLOW (YELLOW); SQUAMOUS EPITHELIAL CELL,UR RARE /HPF (NEGATIVE)
[2022-08-13] MEDS ORDERED: ROCEPHIN VIAL 1 GRAM 1 G in NS 100 ML IV 100 ML IV ONE (03:34)
[2022-08-13] MEDS ORDERED: NS 100 ML IV 100 ML ONE (03:35)
[2022-08-13] MEDS ORDERED: ROCEPHIN VIAL 1 GRAM ONE (03:35)
[2022-08-13] MEDS ORDERED: TYLENOL 325 MG TAB PO PRN (04:00)
[2022-08-13] MEDS ORDERED: TYLENOL 500 MG TAB EXTRA STRENGTH PO PRN (04:27)
[2022-08-13] MEDS ORDERED: MICRO K EXTEN CAP 10 MEQ PO PRN (04:34)
[2022-08-13] MEDS ORDERED: POTASSIUM CHLORIDE LIQ 20 MEQ UDC PO PRN (04:34)
[2022-08-13] MEDS ORDERED: K-RIDER 10 MEQ/NS 100 ML 10 MEQ/100 ML BAG IV PRN (04:34)
[2022-08-13] MEDS ORDERED: POTASSIUM CHL 40 MEQ/NS 0.45% 500 ML IV PRN (04:34)
[2022-08-13] MEDS ORDERED: POTASSIUM CHL 60 MEQ/NS 0.45% 500 ML IV PRN (04:34)
[2022-08-13] MEDS ORDERED: K-DUR TAB 20 MEQ PO PRN (04:34)
[2022-08-13] MEDS ORDERED: KLOR-CON PO PRN (04:34)
--- NOTE | 2022-08-13 04:34 | RAD ---
PROCEDURE: Chest X-ray 1 View .HISTORY: Fever.TECHNIQUE: AP portable done at 12:56 a.m..COMPARISON: 11/03/2019.TECHNICAL QUALITY: Satisfactory .FINDINGS:Normal size heart .Mediastinum and hilar regions show no masses or lymphadenopathy. Tortuous aorta.Normal central vascularity .No pulmonary consolidation, masses, pleural fluid, or pneumothorax .No acute bony abnormality .IMPRESSION:No active cardiopulmonary disease .Electronically signed by: Elpidio Lockwood (Aug 13, 2022 04:32:38)
[2022-08-13] MEDS: NS 1,000 ML IV 1,000 ML IV SCH ×4 (05:17→21:30)
[2022-08-13] MEDS: MAGNESIUM SULFATE 1 GRAM/100 mL PREMIX 1 G/100 ML BAG IV PRN ×4 (05:18→10:44)
[2022-08-13] MEDS ORDERED: PERCOCET TAB 5/325 MG PO PRN (08:52)
[2022-08-13] MEDS: COLACE CAP 100 MG PO SCH (09:46)
[2022-08-13] MEDS: MONOKET or IMDUR PO SCH ×2 (09:46→21:33)
[2022-08-13] MEDS: PROTONIX TAB 40 MG PO SCH ×2 (09:47→21:32)
[2022-08-13] MEDS: ASPIRIN EC 81 MG PO SCH (09:47)
[2022-08-13] MEDS: PLAVIX PO SCH (09:47)
[2022-08-13] MEDS: COREG TAB 6.25 MG PO SCH ×2 (09:48→21:32)
[2022-08-13] MEDS: CHECK PATCH XX SCH ×2 (09:48→21:36)
[2022-08-13] MEDS: VSL#3 PO SCH (09:48)
[2022-08-13] MEDS ORDERED: GLUCOPHAGE PO SCH (13:00)
[2022-08-13] MEDS ORDERED: GLUCOPHAGE ONE ×2 (13:13→20:48)
[2022-08-13] MEDS: GLUCOPHAGE PO SCH ×2 (13:16→21:32)
[2022-08-13] MEDS: NovoLIN R (or HumuLIN R) SUBCUT PRN ×3 (13:16→21:33)
[2022-08-13] MEDS: SNACK - Diabetic Appropriate PO SCH (21:00)
[2022-08-13] MEDS: XANAX PO PRN (21:31)
[2022-08-13] MEDS: FLOMAX PO SCH (21:32)
[2022-08-14] MEDS: NS 1,000 ML IV 1,000 ML IV SCH ×6 (01:14→20:41)
[2022-08-14] MEDS: NovoLIN R (or HumuLIN R) SUBCUT PRN ×4 (06:21→20:42)
[2022-08-14 06:48] LABS: BLOOD UREA NITROGEN 12 mg/dL (7-18); CALCIUM 7.8 mg/dL (8.5-10.1); CHLORIDE 103 mmol/L (98-107); eGFR NON BLACK RACES > 60 (>60)
[2022-08-14 07:06] LABS: BASOPHILS # (AUTO) 0.1 X10^3/uL (0.0-0.1); BASOPHILS % (AUTO) 0.5 % (0.2-1.0); EOSINOPHILS % (AUTO) 0.4 % (0.9-2.9); HEMATOCRIT 31.3 % (42.0-54.0); HEMOGLOBIN 9.8 g/dL (13.5-18.0); LYMPHOCYTES # (AUTO) 0.6 X10^3/uL (1.3-2.9); LYMPHOCYTES % (AUTO) 5.5 % (21.0-51.0); MEAN CORPUSCULAR HEMOGLOBIN 21.3 pg (27.0-34.0); MEAN CORPUSCULAR HGB CONC 31.4 g/dL (33.0-35.0); MEAN PLATELET VOLUME 8.2 fL (7.4-11.0); MONOCYTES # (AUTO) 0.7 x10^3/uL (0.3-0.8); MONOCYTES % (AUTO) 6.3 % (0.0-13.0); NEUTROPHILS # (AUTO) 10.3 x10^3/uL (2.2-4.8); NEUTROPHILS % (AUTO) 87.3 % (42.0-75.0); RED BLOOD COUNT 4.61 X10^6/uL (4.7-6.0); RED CELL DISTRIBUTION WIDTH 20.8 % (11.6-16.5); WHITE BLOOD COUNT 11.7 X10^3/uL (3.6-10.0)
[2022-08-14 07:23] LABS: ALANINE AMINOTRANSFERASE 21 Units/L (12-78); ALBUMIN 2.4 g/dL (3.4-5.0); ALKALINE PHOSPHATASE 60 Units/L (46-116); ASPARTATE AMINO TRANSFERASE 19 Units/L (15-37); CARBON DIOXIDE 27.9 mmol/L (21-32); COR CA(FOR HYPOALB) 9.1 mg/dL (8.5-10.1); COR NA(FOR HYPERGLY) 141 mmol/L (136-145); CREATININE 0.97 mg/dL (0.70-1.30); SODIUM 138 mmol/L (136-145); TOTAL PROTEIN 5.8 g/dL (6.4-8.2)
[2022-08-14 07:43] LABS: ANISOCYTOSIS 1+; HYPOCHROMASIA 2+; MICROCYTOSIS 1+; PLATELET MORPHOLOGY COMMENT NORMAL (NORMAL)
[2022-08-14] MEDS: CHECK PATCH XX SCH ×2 (08:51→20:44)
[2022-08-14] MEDS ORDERED: GLUCOPHAGE ONE ×2 (08:55→20:10)
[2022-08-14] MEDS: PLAVIX PO SCH (09:00)
[2022-08-14] MEDS: ASPIRIN EC 81 MG PO SCH (09:00)
[2022-08-14] MEDS: PROTONIX TAB 40 MG PO SCH ×2 (09:00→20:34)
[2022-08-14] MEDS: GLUCOPHAGE PO SCH ×2 (09:00→20:33)
[2022-08-14] MEDS: COREG TAB 6.25 MG PO SCH ×2 (09:00→20:34)
[2022-08-14] MEDS: COLACE CAP 100 MG PO SCH (09:00)
[2022-08-14] MEDS: VSL#3 PO SCH (09:01)
[2022-08-14] MEDS: MONOKET or IMDUR PO SCH ×2 (09:01→20:32)
[2022-08-14] MEDS: ROCEPHIN VIAL 1 GRAM 1 G in NS 100 ML IV 100 ML IV SCH (09:02)
[2022-08-14] MEDS: XANAX PO PRN (20:34)
[2022-08-14] MEDS: FLOMAX PO SCH (20:35)
[2022-08-14] MEDS: SNACK - Diabetic Appropriate PO SCH (20:40)
[2022-08-15] MEDS: NS 1,000 ML IV 1,000 ML IV SCH ×3 (00:23→09:03)
[2022-08-15 06:17] LABS: BASOPHILS % (AUTO) 0.3 % (0.2-1.0); EOSINOPHILS % (AUTO) 0.5 % (0.9-2.9); HEMATOCRIT 31.5 % (42.0-54.0); HEMOGLOBIN 10.1 g/dL (13.5-18.0); LYMPHOCYTES # (AUTO) 0.6 X10^3/uL (1.3-2.9); MEAN CORPUSCULAR HEMOGLOBIN 21.8 pg (27.0-34.0); MEAN CORPUSCULAR HGB CONC 32.1 g/dL (33.0-35.0); MEAN CORPUSCULAR VOLUME 67.8 fL (80.0-100.0); MEAN PLATELET VOLUME 8.2 fL (7.4-11.0); MONOCYTES # (AUTO) 0.6 x10^3/uL (0.3-0.8); MONOCYTES % (AUTO) 7.9 % (0.0-13.0); NEUTROPHILS # (AUTO) 5.9 x10^3/uL (2.2-4.8); NEUTROPHILS % (AUTO) 83.3 % (42.0-75.0); RED BLOOD COUNT 4.64 X10^6/uL (4.7-6.0); RED CELL DISTRIBUTION WIDTH 20.3 % (11.6-16.5)
[2022-08-15] MEDS: NovoLIN R (or HumuLIN R) SUBCUT PRN (06:20)
[2022-08-15 06:28] LABS: ALANINE AMINOTRANSFERASE 24 Units/L (12-78); ALBUMIN 2.5 g/dL (3.4-5.0); ALKALINE PHOSPHATASE 66 Units/L (46-116); ASPARTATE AMINO TRANSFERASE 20 Units/L (15-37); BLOOD UREA NITROGEN 9 mg/dL (7-18); CARBON DIOXIDE 26.2 mmol/L (21-32); CHLORIDE 101 mmol/L (98-107); COR CA(FOR HYPOALB) 9.2 mg/dL (8.5-10.1); COR NA(FOR HYPERGLY) 139 mmol/L (136-145); CREATININE 0.85 mg/dL (0.70-1.30); SODIUM 135 mmol/L (136-145); TOTAL PROTEIN 6.1 g/dL (6.4-8.2); eGFR NON BLACK RACES > 60 (>60)
[2022-08-15 06:49] LABS: ANISOCYTOSIS 1+; HYPOCHROMASIA 1+; MICROCYTOSIS 1+; PLATELET MORPHOLOGY COMMENT NORMAL (NORMAL)
[2022-08-15 06:50] LABS: OVALOCYTES SLIGHT; TEAR DROP CELLS SLIGHT
--- NOTE | 2022-08-15 07:02 | DR.H&P ---
H&P History & Physical for Day of: H&P Date: 08/13/22 Chief Complaint Chief Complaint: Altered mental status Dysuria Allergies Allergies Allergy/AdvReac Type Severity Reaction Status Date / Time nalbuphine [From Nubain] AdvReac Verified 11/03/19 17:24 History of Present Illness History of Present Illness: Pt is a 71 year old male past medical history of HTN, DMT2, presenting with dysuria for the past 2-3 days and confusion for the past day. Reports also having some chills. Labs/imaging: Wbc 20.6, Hgb 12.5, Plt 205, Na 135, K 3.9, Creatinine 1.24, Glucose 93, UA: c/w infection, Urine/Blood Culture pending, COVID/Flu negative, CT brain: no acute findings, CXR: no acute cardiopulmonary findings, ABG: pH 7.57, CO2 31, O2 66, HCO3 28.4, O2 sat 95% on RA. Pt was started on antibiotics: IV Rocephin, and IVF NS@125ml/h. On examination appears confusion has significantly improved. Pt AOx4. Will restart home medications. Continue to closely monitor and follow up AM labs. Past Medical History Past Medical History: Arthritis, Coronary Artery Disease, Diabetes, GERD, Hypertension, Kidney Stones and IN Additional Medical History: POLYCYTHEMIA Past Surgical History Surgical History: Cholecystectomy and Ortho Surgery Family History Family Medical History: IN and Hypertension Social History Does patient currently use any type of tobacco product: No Have you used tobacco products in the last 12 months: No Type of Tobacco Use: None Does any household member use tobacco: No Alcohol Use: None Drug Use: None Medications Home Medications: nalbuphine [From Nubain] Adverse Reaction (Verified 11/03/19 17:24) CONTINUE taking the following medications metformin 500 mg tablet 250 mg PO HS 08/13/22 [History] Labs Result Diagrams: 08/15/22 05:28 08/15/22 05:28 Labs: 08/13/22 02:06 Urine,Clean Catch Urine Culture - Preliminary Laboratory WBC 7.0 X10^3/uL (3.6-10.0) 08/15/22 05:28 RBC 4.64 X10^6/uL (4.7-6.0) L 08/15/22 05:28 Hgb 10.1 g/dL (13.5-18.0) L 08/15/22 05:28 Hct 31.5 % (42.0-54.0) L 08/15/22 05:28 MCV 67.8 fL (80.0-100.0) L 08/15/22 05:28 MCH 21.8 pg (27.0-34.0) L 08/15/22 05:28 MCHC 32.1 g/dL (33.0-35.0) L 08/15/22 05:28 RDW 20.3 % (11.6-16.5) H 08/15/22 05:28 Plt Count 183 X10^3/uL (150.0-450.0) 08/15/22 05:28 Plt Count Comment Adequate (ADEQUATE) 08/15/22 05:28 MPV 8.2 fL (7.4-11.0) 08/15/22 05:28 Neut % (Auto) 83.3 % (42.0-75.0) H 08/15/22 05:28 Lymph % (Auto) 8.0 % (21.0-51.0) L 08/15/22 05:28 [place] % (Auto) 7.9 % (0.0-13.0) 08/15/22 05:28 Eos % (Auto) 0.5 % (0.9-2.9) L 08/15/22 05:28 Baso % (Auto) 0.3 % (0.2-1.0) 08/15/22 05:28 Neut # (Auto) 5.9 x10^3/uL (2.2-4.8) H 08/15/22 05:28 Lymph # (Auto) 0.6 X10^3/uL (1.3-2.9) L 08/15/22 05:28 [place] # (Auto) 0.6 x10^3/uL (0.3-0.8) 08/15/22 05:28 Eos # (Auto) 0.0 x10^3/uL (0.0-0.2) 08/15/22 05:28 Baso # (Auto) 0.0 X10^3/uL (0.0-0.1) 08/15/22 05:28 Absolute Nucleated RBC 0.1 /100WBC 08/15/22 05:28 Plt Morphology Comment Normal (NORMAL) 08/15/22 05:28 RBC Morphology Abnormal (NORMAL) 08/15/22 05:28 Hypochromasia 1+ A 08/15/22 05:28 Anisocytosis 1+ A 08/15/22 05:28 Microcytosis 1+ A 08/15/22 05:28 Tear Drop Cells Slight 08/15/22 05:28 Ovalocytes Slight A 08/15/22 05:28 PT 15.9 SECONDS (11.8-14.3) 08/13/22 00:32 INR Target Range - 08/13/22 00:32 INR 1.32 (0.8-1.3) H 08/13/22 00:32 APTT 31.6 SECONDS (22.9-36.5) 08/13/22 00:32 PTT Comment - 08/13/22 00:32 Sample Site Rr 08/13/22 00:22 ABG pH 7.570 (7.35-7.45) H* 08/13/22 00:22 ABG pCO2 31.0 mmHg (35.0-45.0) L 08/13/22 00:22 ABG pO2 66.0 mmHg (80.0-100.0) L 08/13/22 00:22 ABG HCO3 28.4 mmol/L (22-26) H 08/13/22 00:22 ABG O2 Saturation 95.0 % (90-100) 08/13/22 00:22 ABG Base Excess 6.5 mmol/L (-2.0-2.0) H 08/13/22 00:22 Patrick Test Pos 08/13/22 00:22 A-a Gradient 45.0 mmHg 08/13/22 00:22 FiO2 21.0 08/13/22 00:22 Blood Gas Comments [place] well sw 08/13/22 00:22 Sodium 135 mmol/L (136-145) L 08/15/22 05:28 Corrected Sodium 139 mmol/L (136-145) 08/15/22 05:28 Potassium 4.2 mmol/L (3.5-5.1) 08/15/22 05:28 Chloride 101 mmol/L (98-107) 08/15/22 05:28 Carbon Dioxide 26.2 mmol/L (21-32) 08/15/22 05:28 BUN 9 mg/dL (7-18) 08/15/22 05:28 Creatinine 0.85 mg/dL (0.70-1.30) 08/15/22 05:28 Est GFR (MDRD) Af Amer > 60 (>60) 08/15/22 05:28 Est GFR (MDRD) Non-Af > 60 (>60) 08/15/22 05:28 Glucose 254 mg/dL (65-99) H 08/15/22 05:28 POC Glucose (mg/dL) 244 mg/dL (65-99) H 08/15/22 05:10 Lactic Acid 1.6 mmol/L (0.4-2.0) 08/13/22 00:32 Calcium 8.0 mg/dL (8.5-10.1) L 08/15/22 05:28 Corrected Calcium 9.2 mg/dL (8.5-10.1) 08/15/22 05:28 Phosphorus 2.1 mg/dL (2.6-4.7) L 08/13/22 00:32 Magnesium 2.0 mg/dL (2.0-2.9) 08/14/22 06:58 Total Bilirubin 0.30 mg/dL (0.2-1.0) 08/15/22 05:28 AST 20 Units/L (15-37) 08/15/22 05:28 ALT 24 Units/L (12-78) 08/15/22 05:28 Alkaline Phosphatase 66 Units/L (46-116) 08/15/22 05:28 Creatine Kinase 29 Units/L (39-308) L 08/13/22 00:32 Troponin I High Sens 16.1 ng/L (4.0-60.0) 08/13/22 00:32 Total Protein 6.1 g/dL (6.4-8.2) L 08/15/22 05:28 Albumin 2.5 g/dL (3.4-5.0) L 08/15/22 05:28 Globulin 3.6 g/dL (2.5-4.5) 08/15/22 05:28 Albumin/Globulin Ratio 0.7 Ratio (1.1-2.1) L 08/15/22 05:28 Amylase 44 Units/L (25-115) 08/13/22 00:32 Lipase 53 Units/L (73-393) L 08/13/22 00:32 Total PSA 30.76 ng/mL (0.13-4.0) H 08/13/22 00:32 Cortisol 6.6 ug/dL 08/13/22 00:32 Specimen Type Clean catch urine 08/13/22 02:06 Urine Color Dark yellow (YELLOW) 08/13/22 02:06 Urine Appearance Clear (CLEAR) 08/13/22 02:06 Urine pH 6.0 (5.0 - 8.0) 08/13/22 02:06 Ur Specific [place] 1.015 (1.000-1.030) 08/13/22 02:06 Urine Protein 2+ (NEGATIVE) 08/13/22 02:06 Urine Glucose (UA) Negative (NEGATIVE) 08/13/22 02:06 Urine Ketones Negative (NEGATIVE) 08/13/22 02:06 Urine Blood 3+ (NEGATIVE) 08/13/22 02:06 Urine Nitrite Negative (NEGATIVE) 08/13/22 02:06 Urine Bilirubin 1+ (NEGATIVE) 08/13/22 02:06 Urine Urobilinogen Normal (NORMAL) 08/13/22 02:06 Ur Leukocyte Esterase 3+ (NEGATIVE) 08/13/22 02:06 Urine RBC 3-5 /HPF (0-3) A 08/13/22 02:06 Urine WBC Tntc /HPF (0-5) A 08/13/22 02:06 Ur Squamous Epith Cells Rare /HPF (NEGATIVE) 08/13/22 02:06 Urine Bacteria Trace /HPF (NEGATIVE) 08/13/22 02:06 Ur Culture Indicated? Yes/culture set up 08/13/22 02:06 Influenza Type A Ag Negative-presumptive (NEGATIVE) 08/13/22 00:20 Influenza Type B Ag Negative-presumptive (NEGATIVE) 08/13/22 00:20 SARS CoV-2 RNA Rapid GORGE Negative (NEGATIVE) 08/13/22 00:25 Review of Systems Constitutional: Chills and Weakness Eyes: No Symptoms Reported ENT: No Symptoms Reported Respiratory: No Symptoms Reported Cardiovascular: No Symptoms Reported Gastrointestinal: No Symptoms Reported Genitourinary: Dysuria and Frequency Musculoskeletal: No Symptoms Reported Skin: No Symptoms Reported Neurological: No Symptoms Reported Physical Exam Vital Signs: Temperature 98.0 F Pulse Rate [Apical] 81 Pulse Rate 113 Respiratory Rate 18 Blood Pressure [Right Arm] 171/76 Blood Pressure 134/66 O2 Sat by Pulse Oximetry 96 Oriented: Normal Eyes: Normal Ear: Normal Nose: Normal Throat: Normal Respiratory: Clear Throughout Cardiovascular: Normal : Normal Auscultation: Bowel Sounds: Normal Palpation: Normal Tenderness: Normal Skin: Normal Musculoskeletal: Normal Psychiatric: Normal Mood Description: Calm and Appropriate Affect: Normal Speech Pattern: Clear and Appropriate Assessment/Plan (1) Acute UTI: Narrative Support Text: IV Rocephin IVF NS@125ml/h Urine/Blood cultures pending Status: Acute (2) Altered mental state: Status: Acute Review H&P Reviewed: Yes Patient was examined?: Yes
--- NOTE | 2022-08-15 07:31 | PCM.PROG ---
Progress Note Progress Note for Day of Date of Exam: 08/14/22 Subjective Subjective: Pt is a 71 year old male past medical history of HTN, DMT2, admitted for acute cystitis and altered mental status. This morning patient is resting in bed comfortably. He reports feeling much better. Labs/imaging: Wbc 11.7, Hgb 9.8, Plt 159, Na 139, K 4.2, Creatinine 0.85, Glucose 254, UA: c/w infection, Urine/Blood Culture pending. His current treatment courese includes: antibiotics IV Rocephin, and IVF NS@125ml/h. Confusion is resolved and leukocytosis trending down. Awaiting culture results. Home medications have been resumed. Pt did note having urinary retention ongoing prior to admission and will need urology referral outpatient. Continue to closely monitor and follow up AM labs. Past Medical Family Social History Allergies: Allergies nalbuphine [From Nubain] Adverse Reaction (Verified 11/03/19 17:24) Review of Systems ROS: Changes notes (describe) Vital Signs and I&O's Vital Signs: Temperature 98.0 F Pulse Rate [Apical] 81 Pulse Rate 113 Respiratory Rate 18 Blood Pressure [Right Arm] 171/76 Blood Pressure 134/66 O2 Sat by Pulse Oximetry 96 Intake and Output: Intake & Output 08/12/22 08/13/22 08/14/22 08/15/22 23:59 23:59 23:59 23:59 Intake Total 4091 / 4091 4177 / 4177 978 / 978 Output Total 640 / 640 675 / 675 Balance 3451 / 3451 3502 / 3502 978 / 978 Physical Exam Oriented: Normal Eyes: Normal Ear: Normal Nose: Normal Throat: Normal Cardiovascular: Normal : Normal Auscultation: Bowel Sounds: Normal Tenderness: Normal Skin: Normal Musculoskeletal: Normal Psychiatric: Normal Mood Description: Calm and Appropriate Affect: Normal Speech Pattern: Clear and Appropriate Laboratory and Diagnostics Result Diagrams: 08/15/22 05:28 08/15/22 05:28 Labs: 08/13/22 02:06 Urine,Clean Catch Urine Culture - Preliminary Laboratory WBC 7.0 X10^3/uL (3.6-10.0) 08/15/22 05:28 RBC 4.64 X10^6/uL (4.7-6.0) L 08/15/22 05:28 Hgb 10.1 g/dL (13.5-18.0) L 08/15/22 05:28 Hct 31.5 % (42.0-54.0) L 08/15/22 05:28 MCV 67.8 fL (80.0-100.0) L 08/15/22 05:28 MCH 21.8 pg (27.0-34.0) L 08/15/22 05:28 MCHC 32.1 g/dL (33.0-35.0) L 08/15/22 05:28 RDW 20.3 % (11.6-16.5) H 08/15/22 05:28 Plt Count 183 X10^3/uL (150.0-450.0) 08/15/22 05:28 Plt Count Comment Adequate (ADEQUATE) 08/15/22 05:28 MPV 8.2 fL (7.4-11.0) 08/15/22 05:28 Neut % (Auto) 83.3 % (42.0-75.0) H 08/15/22 05:28 Lymph % (Auto) 8.0 % (21.0-51.0) L 08/15/22 05:28 [place] % (Auto) 7.9 % (0.0-13.0) 08/15/22 05:28 Eos % (Auto) 0.5 % (0.9-2.9) L 08/15/22 05:28 Baso % (Auto) 0.3 % (0.2-1.0) 08/15/22 05:28 Neut # (Auto) 5.9 x10^3/uL (2.2-4.8) H 08/15/22 05:28 Lymph # (Auto) 0.6 X10^3/uL (1.3-2.9) L 08/15/22 05:28 [place] # (Auto) 0.6 x10^3/uL (0.3-0.8) 08/15/22 05:28 Eos # (Auto) 0.0 x10^3/uL (0.0-0.2) 08/15/22 05:28 Baso # (Auto) 0.0 X10^3/uL (0.0-0.1) 08/15/22 05:28 Absolute Nucleated RBC 0.1 /100WBC 08/15/22 05:28 Plt Morphology Comment Normal (NORMAL) 08/15/22 05:28 RBC Morphology Abnormal (NORMAL) 08/15/22 05:28 Hypochromasia 1+ A 08/15/22 05:28 Anisocytosis 1+ A 08/15/22 05:28 Microcytosis 1+ A 08/15/22 05:28 Tear Drop Cells Slight 08/15/22 05:28 Ovalocytes Slight A 08/15/22 05:28 PT 15.9 SECONDS (11.8-14.3) 08/13/22 00:32 INR Target Range - 08/13/22 00:32 INR 1.32 (0.8-1.3) H 08/13/22 00:32 APTT 31.6 SECONDS (22.9-36.5) 08/13/22 00:32 PTT Comment - 08/13/22 00:32 Sample Site Rr 08/13/22 00:22 ABG pH 7.570 (7.35-7.45) H* 08/13/22 00:22 ABG pCO2 31.0 mmHg (35.0-45.0) L 08/13/22 00:22 ABG pO2 66.0 mmHg (80.0-100.0) L 08/13/22 00:22 ABG HCO3 28.4 mmol/L (22-26) H 08/13/22 00:22 ABG O2 Saturation 95.0 % (90-100) 08/13/22 00:22 ABG Base Excess 6.5 mmol/L (-2.0-2.0) H 08/13/22 00:22 Patrick Test Pos 08/13/22 00:22 A-a Gradient 45.0 mmHg 08/13/22 00:22 FiO2 21.0 08/13/22 00:22 Blood Gas Comments Pierce well sw 08/13/22 00:22 Sodium 135 mmol/L (136-145) L 08/15/22 05:28 Corrected Sodium 139 mmol/L (136-145) 08/15/22 05:28 Potassium 4.2 mmol/L (3.5-5.1) 08/15/22 05:28 Chloride 101 mmol/L (98-107) 08/15/22 05:28 Carbon Dioxide 26.2 mmol/L (21-32) 08/15/22 05:28 BUN 9 mg/dL (7-18) 08/15/22 05:28 Creatinine 0.85 mg/dL (0.70-1.30) 08/15/22 05:28 Est GFR (MDRD) Af Amer > 60 (>60) 08/15/22 05:28 Est GFR (MDRD) Non-Af > 60 (>60) 08/15/22 05:28 Glucose 254 mg/dL (65-99) H 08/15/22 05:28 POC Glucose (mg/dL) 244 mg/dL (65-99) H 08/15/22 05:10 Lactic Acid 1.6 mmol/L (0.4-2.0) 08/13/22 00:32 Calcium 8.0 mg/dL (8.5-10.1) L 08/15/22 05:28 Corrected Calcium 9.2 mg/dL (8.5-10.1) 08/15/22 05:28 Phosphorus 2.1 mg/dL (2.6-4.7) L 08/13/22 00:32 Magnesium 2.0 mg/dL (2.0-2.9) 08/14/22 06:58 Total Bilirubin 0.30 mg/dL (0.2-1.0) 08/15/22 05:28 AST 20 Units/L (15-37) 08/15/22 05:28 ALT 24 Units/L (12-78) 08/15/22 05:28 Alkaline Phosphatase 66 Units/L (46-116) 08/15/22 05:28 Creatine Kinase 29 Units/L (39-308) L 08/13/22 00:32 Troponin I High Sens 16.1 ng/L (4.0-60.0) 08/13/22 00:32 Total Protein 6.1 g/dL (6.4-8.2) L 08/15/22 05:28 Albumin 2.5 g/dL (3.4-5.0) L 08/15/22 05:28 Globulin 3.6 g/dL (2.5-4.5) 08/15/22 05:28 Albumin/Globulin Ratio 0.7 Ratio (1.1-2.1) L 08/15/22 05:28 Amylase 44 Units/L (25-115) 08/13/22 00:32 Lipase 53 Units/L (73-393) L 08/13/22 00:32 Total PSA 30.76 ng/mL (0.13-4.0) H 08/13/22 00:32 Cortisol 6.6 ug/dL 08/13/22 00:32 Specimen Type Clean catch urine 08/13/22 02:06 Urine Color Dark yellow (YELLOW) 08/13/22 02:06 Urine Appearance Clear (CLEAR) 08/13/22 02:06 Urine pH 6.0 (5.0 - 8.0) 08/13/22 02:06 Ur Specific [place] 1.015 (1.000-1.030) 08/13/22 02:06 Urine Protein 2+ (NEGATIVE) 08/13/22 02:06 Urine Glucose (UA) Negative (NEGATIVE) 08/13/22 02:06 Urine Ketones Negative (NEGATIVE) 08/13/22 02:06 Urine Blood 3+ (NEGATIVE) 08/13/22 02:06 Urine Nitrite Negative (NEGATIVE) 08/13/22 02:06 Urine Bilirubin 1+ (NEGATIVE) 08/13/22 02:06 Urine Urobilinogen Normal (NORMAL) 08/13/22 02:06 Ur Leukocyte Esterase 3+ (NEGATIVE) 08/13/22 02:06 Urine RBC 3-5 /HPF (0-3) A 08/13/22 02:06 Urine WBC Tntc /HPF (0-5) A 08/13/22 02:06 Ur Squamous Epith Cells Rare /HPF (NEGATIVE) 08/13/22 02:06 Urine Bacteria Trace /HPF (NEGATIVE) 08/13/22 02:06 Ur Culture Indicated? Yes/culture set up 08/13/22 02:06 Influenza Type A Ag Negative-presumptive (NEGATIVE) 08/13/22 00:20 Influenza Type B Ag Negative-presumptive (NEGATIVE) 08/13/22 00:20 SARS CoV-2 RNA Rapid GORGE Negative (NEGATIVE) 08/13/22 00:25 Plan (1) Acute UTI: Status: Acute (2) Altered mental state: Status: Acute
[2022-08-15] MEDS ORDERED: GLUCOPHAGE ONE (08:01)
[2022-08-15] MEDS: COREG TAB 6.25 MG PO SCH (08:49)
[2022-08-15] MEDS: PLAVIX PO SCH (08:51)
[2022-08-15] MEDS: PROTONIX TAB 40 MG PO SCH (08:51)
[2022-08-15] MEDS: MONOKET or IMDUR PO SCH (08:51)
[2022-08-15] MEDS: ASPIRIN EC 81 MG PO SCH (08:52)
[2022-08-15] MEDS: COLACE CAP 100 MG PO SCH (08:52)
[2022-08-15] MEDS: ROCEPHIN VIAL 1 GRAM 1 G in NS 100 ML IV 100 ML IV SCH (08:53)
[2022-08-15] MEDS: GLUCOPHAGE PO SCH (08:53)
[2022-08-15] MEDS: VSL#3 PO SCH (08:53)
[2022-08-15] MEDS ORDERED: DURAGESIC 75 mcg/HR PATCH TD SCH (09:00)
[2022-08-15] MEDS: CHECK PATCH XX SCH (09:06)
[2022-08-15 11:09] VITALS: BP 160/78
[2022-08-15] MEDS ORDERED: GLUCOPHAGE PO SCH (12:00)
--- NOTE | 2022-08-15 19:00 | PCM.DCPLAN ---
DISCHARGE SUMMARY Admission Date Date of Admission: 08/13/22 Discharge Date Discharge Date: 08/15/22 Admission Diagnoses (1) Acute UTI: Status: Acute (2) Altered mental state: Status: Acute Discharge Diagnoses Discharge Diagnosis: 1. UTI secondary to E. coli resolving 2. Altered mental status resolved 3. Diabetes mellitus type 2 4. Leukocytosis resolved Discharge Medications Discharge Medications: Home Medication List metformin 500 mg tablet 250 mg PO HS 08/13/22 [History] sulfamethoxazole 800 mg-trimethoprim 160 mg tablet (Bactrim DS) 1 tab PO BID 7 days #14 tabs 08/15/22 [Rx] Prescriptions: sulfamethoxazole-trimethoprim [Bactrim DS] KOFFI GARCIA Hospital Course Vital Signs: Temperature 98.4 F Pulse Rate [Apical] 81 Pulse Rate 113 Respiratory Rate 20 Blood Pressure [Right Arm] 160/78 Blood Pressure 134/66 O2 Sat by Pulse Oximetry 96 Latest Lab Results: Laboratory Last Values WBC 7.0 X10^3/uL (3.6-10.0) 08/15/22 05:28 RBC 4.64 X10^6/uL (4.7-6.0) L 08/15/22 05:28 Hgb 10.1 g/dL (13.5-18.0) L 08/15/22 05:28 Hct 31.5 % (42.0-54.0) L 08/15/22 05:28 MCV 67.8 fL (80.0-100.0) L 08/15/22 05:28 MCH 21.8 pg (27.0-34.0) L 08/15/22 05:28 MCHC 32.1 g/dL (33.0-35.0) L 08/15/22 05:28 RDW 20.3 % (11.6-16.5) H 08/15/22 05:28 Plt Count 183 X10^3/uL (150.0-450.0) 08/15/22 05:28 Plt Count Comment Adequate (ADEQUATE) 08/15/22 05:28 MPV 8.2 fL (7.4-11.0) 08/15/22 05:28 Neut % (Auto) 83.3 % (42.0-75.0) H 08/15/22 05:28 Lymph % (Auto) 8.0 % (21.0-51.0) L 08/15/22 05:28 [place] % (Auto) 7.9 % (0.0-13.0) 08/15/22 05:28 Eos % (Auto) 0.5 % (0.9-2.9) L 08/15/22 05:28 Baso % (Auto) 0.3 % (0.2-1.0) 08/15/22 05:28 Neut # (Auto) 5.9 x10^3/uL (2.2-4.8) H 08/15/22 05:28 Lymph # (Auto) 0.6 X10^3/uL (1.3-2.9) L 08/15/22 05:28 [place] # (Auto) 0.6 x10^3/uL (0.3-0.8) 08/15/22 05:28 Eos # (Auto) 0.0 x10^3/uL (0.0-0.2) 08/15/22 05:28 Baso # (Auto) 0.0 X10^3/uL (0.0-0.1) 08/15/22 05:28 Absolute Nucleated RBC 0.1 /100WBC 08/15/22 05:28 Plt Morphology Comment Normal (NORMAL) 08/15/22 05:28 RBC Morphology Abnormal (NORMAL) 08/15/22 05:28 Hypochromasia 1+ A 08/15/22 05:28 Anisocytosis 1+ A 08/15/22 05:28 Microcytosis 1+ A 08/15/22 05:28 Tear Drop Cells Slight 08/15/22 05:28 Ovalocytes Slight A 08/15/22 05:28 PT 15.9 SECONDS (11.8-14.3) 08/13/22 00:32 INR Target Range - 08/13/22 00:32 INR 1.32 (0.8-1.3) H 08/13/22 00:32 APTT 31.6 SECONDS (22.9-36.5) 08/13/22 00:32 PTT Comment - 08/13/22 00:32 Sample Site Rr 08/13/22 00:22 ABG pH 7.570 (7.35-7.45) H* 08/13/22 00:22 ABG pCO2 31.0 mmHg (35.0-45.0) L 08/13/22 00:22 ABG pO2 66.0 mmHg (80.0-100.0) L 08/13/22 00:22 ABG HCO3 28.4 mmol/L (22-26) H 08/13/22 00:22 ABG O2 Saturation 95.0 % (90-100) 08/13/22 00:22 ABG Base Excess 6.5 mmol/L (-2.0-2.0) H 08/13/22 00:22 Patrick Test Pos 08/13/22 00:22 A-a Gradient 45.0 mmHg 08/13/22 00:22 FiO2 21.0 08/13/22 00:22 Blood Gas Comments [place] well sw 08/13/22 00:22 Sodium 135 mmol/L (136-145) L 08/15/22 05:28 Corrected Sodium 139 mmol/L (136-145) 08/15/22 05:28 Potassium 4.2 mmol/L (3.5-5.1) 08/15/22 05:28 Chloride 101 mmol/L (98-107) 08/15/22 05:28 Carbon Dioxide 26.2 mmol/L (21-32) 08/15/22 05:28 BUN 9 mg/dL (7-18) 08/15/22 05:28 Creatinine 0.85 mg/dL (0.70-1.30) 08/15/22 05:28 Est GFR (MDRD) Af Amer > 60 (>60) 08/15/22 05:28 Est GFR (MDRD) Non-Af > 60 (>60) 08/15/22 05:28 Glucose 254 mg/dL (65-99) H 08/15/22 05:28 POC Glucose (mg/dL) 244 mg/dL (65-99) H 08/15/22 05:10 Lactic Acid 1.6 mmol/L (0.4-2.0) 08/13/22 00:32 Calcium 8.0 mg/dL (8.5-10.1) L 08/15/22 05:28 Corrected Calcium 9.2 mg/dL (8.5-10.1) 08/15/22 05:28 Phosphorus 2.1 mg/dL (2.6-4.7) L 08/13/22 00:32 Magnesium 2.0 mg/dL (2.0-2.9) 08/14/22 06:58 Total Bilirubin 0.30 mg/dL (0.2-1.0) 08/15/22 05:28 AST 20 Units/L (15-37) 08/15/22 05:28 ALT 24 Units/L (12-78) 08/15/22 05:28 Alkaline Phosphatase 66 Units/L (46-116) 08/15/22 05:28 Creatine Kinase 29 Units/L (39-308) L 08/13/22 00:32 Troponin I High Sens 16.1 ng/L (4.0-60.0) 08/13/22 00:32 Total Protein 6.1 g/dL (6.4-8.2) L 08/15/22 05:28 Albumin 2.5 g/dL (3.4-5.0) L 08/15/22 05:28 Globulin 3.6 g/dL (2.5-4.5) 08/15/22 05:28 Albumin/Globulin Ratio 0.7 Ratio (1.1-2.1) L 08/15/22 05:28 Amylase 44 Units/L (25-115) 08/13/22 00:32 Lipase 53 Units/L (73-393) L 08/13/22 00:32 Total PSA 30.76 ng/mL (0.13-4.0) H 08/13/22 00:32 Cortisol 6.6 ug/dL 08/13/22 00:32 Specimen Type Clean catch urine 08/13/22 02:06 Urine Color Dark yellow (YELLOW) 08/13/22 02:06 Urine Appearance Clear (CLEAR) 08/13/22 02:06 Urine pH 6.0 (5.0 - 8.0) 08/13/22 02:06 Ur Specific [place] 1.015 (1.000-1.030) 08/13/22 02:06 Urine Protein 2+ (NEGATIVE) 08/13/22 02:06 Urine Glucose (UA) Negative (NEGATIVE) 08/13/22 02:06 Urine Ketones Negative (NEGATIVE) 08/13/22 02:06 Urine Blood 3+ (NEGATIVE) 08/13/22 02:06 Urine Nitrite Negative (NEGATIVE) 08/13/22 02:06 Urine Bilirubin 1+ (NEGATIVE) 08/13/22 02:06 Urine Urobilinogen Normal (NORMAL) 08/13/22 02:06 Ur Leukocyte Esterase 3+ (NEGATIVE) 08/13/22 02:06 Urine RBC 3-5 /HPF (0-3) A 08/13/22 02:06 Urine WBC Tntc /HPF (0-5) A 08/13/22 02:06 Ur Squamous Epith Cells Rare /HPF (NEGATIVE) 08/13/22 02:06 Urine Bacteria Trace /HPF (NEGATIVE) 08/13/22 02:06 Ur Culture Indicated? Yes/culture set up 08/13/22 02:06 Influenza Type A Ag Negative-presumptive (NEGATIVE) 08/13/22 00:20 Influenza Type B Ag Negative-presumptive (NEGATIVE) 08/13/22 00:20 SARS CoV-2 RNA Rapid GORGE Negative (NEGATIVE) 08/13/22 00:25 Hospital Course: Pt is a 71 year old male past medical history of HTN, DMT2, presenting with dysuria for the past 2-3 days and confusion for the past day. Reports also having some chills. Labs/imaging: Wbc 20.6, Hgb 12.5, Plt 205, Na 135, K 3.9, Creatinine 1.24, Glucose 93, UA: c/w infection, Urine/Blood Culture pending, COVID/Flu negative, CT brain: no acute findings, CXR: no acute cardiopulmonary findings, ABG: pH 7.57, CO2 31, O2 66, HCO3 28.4, O2 sat 95% on RA. Pt was started on antibiotics: IV Rocephin, and IVF NS@125ml/h. On examination appears confusion has significantly improved. Pt AOx4. Will restart home medications. Continue to closely monitor and follow up AM labs. The following morning after admission patient was more alert and reported that he felt better. Is also noted his white blood cell count has decreased significantly since admission. Renal status is better and he is making progress in his treatment. By the following day he is feeling much better and ready go home. His urine culture came back this morning and shows E. coli and it is sensitive to sulfa medications as well as the IV Rocephin he was receiving. Patient will be discharged home this morning stable condition. We will have him follow-up with his primary care provider Dr. John Sarah in 7 to 14 days for hospital follow- up. Discharge medications patient will resume his regular home medications as before. I will also be giving him Bactrim DS 1 p.o. twice daily x1 week. Patient is instructed to call doctors office if he should start having recurrent symptoms or if he is not able to get a hold of them go to the closest ER for further evaluation and treatment.
== END 2022-08-15 11:12 | disposition home or self-care (01) ==
LOC: MED/SURG 00:12 → ER 00:12 → MED/SURG 04:12
PROVIDERS: ADMIT Family Medicine; ATTEND Family Medicine
DX: R97.20 Elevated prostate specific antigen [PSA]; N39.0 Urinary tract infection, site not specified; R53.1 Weakness; I25.10 Atherosclerotic heart disease of native coronary artery without angina pectoris; R30.0 Dysuria; B96.29 Other Escherichia coli [E. coli] as the cause of diseases classified elsewhere; R41.82 Altered mental status, unspecified; R51.9 Headache, unspecified; I10 Essential (primary) hypertension; R26.89 Other abnormalities of gait and mobility; K21.9 Gastro-esophageal reflux disease without esophagitis; E11.65 Type 2 diabetes mellitus with hyperglycemia; R79.1 Abnormal coagulation profile; Z20.822 Contact with and (suspected) exposure to COVID-19; R00.1 Bradycardia, unspecified

== ENCOUNTER 2022-12-05 15:07 | Inpatient (IN) ==
[2022-12-05] MEDS ORDERED: NS 1,000 ML IV 1,000 ML IV ONE (15:20)
[2022-12-05] MEDS ORDERED: NS 1,000 ML IV 1,000 ML ONE (15:28)
[2022-12-05] MEDS ORDERED: OFIRMEV IV 1000 MG VIAL 1,000 MG/100 ML VIAL IV ONE ×2 (15:35→15:36)
--- NOTE | 2022-12-05 15:38 | DR.GENAD ---
HPI Time Seen Time Seen by Provider: 12/05/22 15:20 PCP Primary Care Physician: JALEEL Complaint/Symptoms Chief Complaint Doctors Comments: 72 y/o male presents for evaluation. Started with URI symptoms about 4 days ago, cough, congestion. Was seen in PCP office 2 days ago, covid swab negative then. Spiked fever yesterday. + having generalized weakness, aches, fever. Has been confused at times. Pt denies bowel/bladder issues. was started on Levaquin, steroids 3 days ago. Chief Complaint:: SPOUSE STATES PT. HAS BEEN SICK SINCE FRIDAY WITH COUGH, COLD AND CONGESTION. PT. WAS TESTED ON FRIDAY FOR COVID AND WAS NEGATIVE. SHE THINKS PT. HAS A UTI. SHE STATES PT. HAS BEEN CONFUSED AND LETHARGIC. Self Treatment fo Chief Complaint: LEVAQUIN COVID-19 Coronavirus risk:travel/contact w/high risk person: No Has patient experienced Coronavirus symptoms: Yes Coronavirus symptoms experienced: Fever and Coughing Nurses notes reviewed Nurses Notes Review: Yes Source History Provided: Patient and Family Member Mode of Arrival Mode of Arrival: Wheelchair Timing Onset of Chief Complaint: 11/30/22 PMH PMH Past Medical History: Yes Past Medical History: Arthritis, Coronary Artery Disease, Diabetes, GERD, Hypert ension, Kidney Stones and WI Past Surgical History: Yes Surgical History: Angioplasty/Stents, Cholecystectomy and Ortho Surgery Family History History of Family Medical Conditions: Yes Family Medical History: [place] and Hypertension Social History Does patient currently use any type of tobacco product: No Have you used tobacco products in the last 12 months: No Type of Tobacco Use: None Does any household member use tobacco: No Alcohol Use: Rarely Do you use any recreational Drugs:: No Lives With: Spouse Lives Where: Home Travel Risk Coronavirus risk:travel/contact w/high risk person: No Has patient experienced Coronavirus symptoms: Yes Coronavirus symptoms experienced: Fever and Coughing Infectious screening In the last 2 months have you had wt loss of >10#?: NO Have you had fever, night sweats or hemotysis?: No Have you traveled outside the country in the last 6 months?: No Isolation: Droplet ROS Review of Systems Constitutional: Chills, Fever and Weakness Eyes: No Symptoms Reported ENTM: Nose Congestion Respiratoy: Moist Cough Cardiovascular: No Symptoms Reported Gastrointestinal/Abdominal: No Symptoms Reported Genitourinary: No Symptoms Reported Neurological: Weakness and Dizziness Musculoskeletal: Muscle Pain Integumentary: No Symptoms Reported Psychiatric: Other (confusion at times) All Other Systems: Reviewed and Negative PE Vital Signs Vitals: Temperature 100.2 F Pulse Rate 96 Respiratory Rate 15 Blood Pressure [Right Arm] 191/81 Blood Pressure 150/68 O2 Sat by Pulse Oximetry 97 General General Appearance: Other (awake, a bit confused. ) Head Head Exam: Normal Inspection Eyes Eye exam: PERRL and EOMI ENT ENT Exam: Normal Oropharynx, Mucous Membranes Moist and TM's Normal Bilaterally Neck Neck Exam: Normal Inspection Respiratory Respiratory Exam: Normal Lung Sounds Bilat; negative Accessory Muscle Use or Respiratory Distress Cardiovascular Cardiovascular Exam: Regular Rate, Normal Rhythm and Normal Heart Sounds Extremities Extremities Exam: Full ROM; negative Edema Back Back Exam: Normal Inspection Neurologic Neurological Exam: CN II-XII Intact and Other (+ awake, oriented to self. ); negative Motor Sensory Deficit Skin Skin Exam: Warm and Dry COURSE Treatment Treatment: 72 y/o male ill past several days. W/u initiated. Pt given IV fluids, IV tylenol. 1733 - WBC elevated to 14.4, but has been on steroids. CXR a little junky, but no definitive pneumonia. CMP, lactic acid acceptable. Covid/flu/RSV negative. Pt given a dose of rocephin. Awaiting urine. 1815 - U/a without infection. Does have 2+ ketones. Renal numbers not bad, though. Pt/family concerned with fever, illness. No obvious bacterial infection, probably viral illness. Recommend admission for further IV hydration, observation. Discussed with Dr Bentley, accepts the admission for Dr Crowe. [facility] Labs Reviewed Laboratory Results Reviewed?: Yes Result Diagrams: 12/05/22 15:26 12/05/22 15:26 Laboratory: WBC 14.4 X10^3/uL (3.6-10.0) H 12/05/22 15: RBC 5.89 X10^6/uL (4.7-6.0) 12/05/22 15:26 Hgb 13.8 g/dL (13.5-18.0) 12/05/22 15:26 Hct 43.3 % (42.0-54.0) 12/05/22 15: MCV 73.5 fL (80.0-100.0) L 12/05/22 15:26 MCH 23.4 pg (27.0-34.0) L 12/05/22 15: MCHC 31.9 g/dL (33.0-35.0) L 12/05/22 15: RDW 19.3 % (11.6-16.5) H 12/05/22 15: Plt Count 218 X10^3/uL (150.0-450.0) 12/05/22 15: Plt Count Comment Adequate (ADEQUATE) 12/05/22 15: MPV 6.8 fL (7.4-11.0) L 12/05/22 15: Neut % (Auto) 85.8 % (42.0-75.0) H 12/05/22 15: Lymph % (Auto) 7.4 % (21.0-51.0) L 12/05/22 15: [place] % (Auto) 6.3 % (0.0-13.0) 12/05/22 15: Eos % (Auto) 0.0 % (0.9-2.9) L 12/05/22 15: Baso % (Auto) 0.5 % (0.2-1.0) 12/05/22: Neut # (Auto) 12.3 x10^3/uL (2.2-4.8) H 12/05/22 15: Lymph # (Auto) 1.1 X10^3/uL (1.3-2.9) L 12/05/22 15: [place] # (Auto) 0.9 x10^3/uL (0.3-0.8) H 12/05/22 15: Eos # (Auto) 0.0 x10^3/uL (0.0-0.2) 12/05/22 15: Baso # (Auto) 0.1 X10^3/uL (0.0-0.1) 12/05/22 15: Absolute Nucleated RBC 0.1 /100WBC 12/05/22 15:26 Plt Morphology Comment Normal (NORMAL) 12/05/22 15: RBC Morphology Abnormal (NORMAL) 12/05/22 15:26 Hypochromasia Slight A 12/05/22 15:26 Anisocytosis Slight A 12/05/22 15:26 Microcytosis Slight A 12/05/22 15:26 Tear Drop Cells Present 12/05/22 15:26 Sodium 134 mmol/L (136-145) L 12/05/22 15:26 Corrected Sodium 136 mmol/L (136-145) 12/05/22 15:26 Potassium 3.9 mmol/L (3.5-5.1) 12/05/22 15:26 Chloride 95 mmol/L (98-107) L 12/05/22 15:26 Carbon Dioxide 33.0 mmol/L (21-32) H 12/05/22 15:26 BUN 20 mg/dL (7-18) H 12/05/22 15:26 Creatinine 1.00 mg/dL (0.70-1.30) 12/05/22 15:26 Est GFR (MDRD) Af Amer > 60 (>60) 12/05/22 15:26 Est GFR (MDRD) Non-Af > 60 (>60) 12/05/22 15:26 Glucose 173 mg/dL (65-99) H 12/05/22 15:26 Lactic Acid 1.5 mmol/L (0.4-2.0) 12/05/22 15:26 Calcium 8.9 mg/dL (8.5-10.1) 12/05/22 15:26 Corrected Calcium TNP 12/05/22 15:26 Total Bilirubin 0.50 mg/dL (0.2-1.0) 12/05/22 15:26 AST 67 Units/L (15-37) H 12/05/22 15:26 ALT 39 Units/L (12-78) 12/05/22 15:26 Alkaline Phosphatase 68 Units/L (46-116) 12/05/22 15:26 Total Protein 7.7 g/dL (6.4-8.2) 12/05/22 15:26 Albumin 3.6 g/dL (3.4-5.0) 12/05/22 15:26 Globulin 4.1 g/dL (2.5-4.5) 12/05/22 15:26 Albumin/Globulin Ratio 0.9 Ratio (1.1-2.1) L 12/05/22 15:26 Lipase 53 Units/L (73-393) L 12/05/22 15:26 Specimen Type Clean catch urine 12/05/22 17:32 Urine Color Yellow (YELLOW) 12/05/22 17:32 Urine Appearance Clear (CLEAR) 12/05/22 17:32 Urine pH 5.0 (5.0 - 8.0) 12/05/22 17:32 Ur Specific [place] 1.015 (1.000-1.030) 12/05/22 17:32 Urine Protein 3+ (NEGATIVE) 12/05/22 17:32 Urine Glucose (UA) Negative (NEGATIVE) 12/05/22 17:32 Urine Ketones 2+ (NEGATIVE) 12/05/22 17:32 Urine Blood 1+ (NEGATIVE) 12/05/22 17:32 Urine Nitrite Negative (NEGATIVE) 12/05/22 17: Urine Bilirubin Negative (NEGATIVE) 12/05/22 17:32 Urine Urobilinogen Normal (NORMAL) 12/05/22 17:32 Ur Leukocyte Esterase Negative (NEGATIVE) 12/05/22 17:32 Urine RBC 3-5 /HPF (0-3) A 12/05/22 17:32 Urine WBC None seen /HPF (0-5) 12/05/22 17:32 Ur Squamous Epith Cells Rare /HPF (NEGATIVE) 12/05/22 17:32 Urine Bacteria Trace /HPF (NEGATIVE) 12/05/22 17:32 Urine Mucus Few /HPF (NEGATIVE) 12/05/22 17:32 Ur Culture Indicated? No/not indicated 12/05/22 17:32 SARS-CoV-2 (PCR) Negative (NEGATIVE) 12/05/22 15:29 Influenza Type A (PCR) Negative (NEGATIVE) 12/05/22 15:29 Influenza Type B (PCR) Negative (NEGATIVE) 12/05/22 15:29 RSV (PCR) Negative (NEGATIVE) 12/05/22 15:29 Labs acceptable. XRAY XRAY Interpreted by: Self X-ray Results: no obvious infiltrate Opioid Opioid Risk Tool Age (Ángel box if 16-45): No History of Preadolescent Sexual Abuse: No Total: 0 Total Score Risk Category: Low Risk Copyright: Gabe DURHAM predicting aberrant behaviors Discharge Plan Diagnosis Discharge Problem: Acute febrile illness, Altered mental status Discharge Plan Patient Disposition: 09 ADMITTED INPATIENT Condition: Stable Orders to Discharge Patient Discharge Orders: Transfer (Routine); Ordered 12/05/22 Ordered By: Cole Velez
[2022-12-05 15:53] LABS: BASOPHILS # (AUTO) 0.1 X10^3/uL (0.0-0.1); BASOPHILS % (AUTO) 0.5 % (0.2-1.0); HEMATOCRIT 43.3 % (42.0-54.0); HEMOGLOBIN 13.8 g/dL (13.5-18.0); LYMPHOCYTES # (AUTO) 1.1 X10^3/uL (1.3-2.9); LYMPHOCYTES % (AUTO) 7.4 % (21.0-51.0); MEAN CORPUSCULAR HEMOGLOBIN 23.4 pg (27.0-34.0); MEAN CORPUSCULAR HGB CONC 31.9 g/dL (33.0-35.0); MEAN CORPUSCULAR VOLUME 73.5 fL (80.0-100.0); MEAN PLATELET VOLUME 6.8 fL (7.4-11.0); MONOCYTES # (AUTO) 0.9 x10^3/uL (0.3-0.8); MONOCYTES % (AUTO) 6.3 % (0.0-13.0); NEUTROPHILS # (AUTO) 12.3 x10^3/uL (2.2-4.8); NEUTROPHILS % (AUTO) 85.8 % (42.0-75.0); PLATELET COUNT 218 X10^3/uL (150.0-450.0); RED BLOOD COUNT 5.89 X10^6/uL (4.7-6.0); RED CELL DISTRIBUTION WIDTH 19.3 % (11.6-16.5); WHITE BLOOD COUNT 14.4 X10^3/uL (3.6-10.0)
[2022-12-05 16:06] LABS: ALANINE AMINOTRANSFERASE 39 Units/L (12-78); ALBUMIN 3.6 g/dL (3.4-5.0); ALKALINE PHOSPHATASE 68 Units/L (46-116); ASPARTATE AMINO TRANSFERASE 67 Units/L (15-37); BLOOD UREA NITROGEN 20 mg/dL (7-18); CALCIUM 8.9 mg/dL (8.5-10.1); CHLORIDE 95 mmol/L (98-107); COR NA(FOR HYPERGLY) 136 mmol/L (136-145); GLUCOSE 173 mg/dL (65-99); LIPASE 53 Units/L (73-393); POTASSIUM 3.9 mmol/L (3.5-5.1); SODIUM 134 mmol/L (136-145); TOTAL PROTEIN 7.7 g/dL (6.4-8.2); eGFR NON BLACK RACES > 60 (>60)
[2022-12-05 16:10] LABS: PLATELET MORPHOLOGY COMMENT NORMAL (NORMAL)
[2022-12-05 16:11] LABS: ANISOCYTOSIS SLIGHT; HYPOCHROMASIA SLIGHT
[2022-12-05 16:12] LABS: LACTIC ACID 1.5 mmol/L (0.4-2.0); MICROCYTOSIS SLIGHT
[2022-12-05 16:13] LABS: TEAR DROP CELLS PRESENT
[2022-12-05] MEDS ORDERED: ROCEPHIN VIAL 1 GRAM 1 G in NS 100 ML IV 100 ML IV ONE (17:31)
[2022-12-05] MEDS ORDERED: ROCEPHIN VIAL 1 GRAM ONE (17:34)
[2022-12-05] MEDS ORDERED: NS 100 ML IV 100 ML ONE (17:35)
[2022-12-05 17:50] LABS: BILIRUBIN,URINE NEGATIVE (NEGATIVE); BLOOD/HEMOGLOBIN,URINE 1+ (NEGATIVE); GLUCOSE, URINE NEGATIVE (NEGATIVE); KETONES,URINE 2+ (NEGATIVE); LEUKOCYTE ESTERASE ,URINE NEGATIVE (NEGATIVE); NITRITES,URINE NEGATIVE (NEGATIVE); PROTEIN,URINE 3+ (NEGATIVE); UROBILINOGEN,URINE NORMAL (NORMAL)
[2022-12-05 17:58] LABS: APPEARANCE,URINE CLEAR (CLEAR); BACTERIA,URINE TRACE /HPF (NEGATIVE); COLOR,URINE YELLOW (YELLOW); SQUAMOUS EPITHELIAL CELL,UR RARE /HPF (NEGATIVE)
[2022-12-05] MEDS: ROCEPHIN VIAL 1 GRAM 1 G in NS 100 ML IV 100 ML IV SCH (20:33)
[2022-12-05 22:45] VITALS: BMI 23.8
[2022-12-05] MEDS ORDERED: NORCO 5/325 MG TAB ONE (23:43)
[2022-12-05] MEDS: NORCO 5/325 MG TAB PO PRN (23:50)
--- NOTE | 2022-12-06 00:29 | RAD ---
HISTORYfeverSTUDYCHEST, 1 VIEWCOMPARISONJanuary 2022.TECHNIQUEA single frontal view of the chest was obtained.FINDINGSThere are multiple EKG leads and wires seen overlying the patient. The heart is normal in size. A very long coronary artery stent is noted in situ overlying the left heart. There is no focal infiltrate. There is no effusion. There is no pneumothorax. The osseous structures are intact.IMPRESSIONNo focal infiltrate or effusion.Electronically signed by: Marlen Santos (Dec 06, 2022 00:28:33)
[2022-12-06 05:07] LABS: MEAN PLATELET VOLUME 6.9 fL (7.4-11.0); WHITE BLOOD COUNT 10.1 X10^3/uL (3.6-10.0)
[2022-12-06 05:19] LABS: BASOPHILS # (AUTO) 0.1 X10^3/uL (0.0-0.1); BASOPHILS % (AUTO) 0.5 % (0.2-1.0); EOSINOPHILS % (AUTO) 0.3 % (0.9-2.9); HEMATOCRIT 38.3 % (42.0-54.0); HEMOGLOBIN 12.5 g/dL (13.5-18.0); LYMPHOCYTES # (AUTO) 1.1 X10^3/uL (1.3-2.9); LYMPHOCYTES % (AUTO) 10.6 % (21.0-51.0); MEAN CORPUSCULAR HEMOGLOBIN 23.8 pg (27.0-34.0); MEAN CORPUSCULAR HGB CONC 32.7 g/dL (33.0-35.0); MEAN CORPUSCULAR VOLUME 72.8 fL (80.0-100.0); MONOCYTES # (AUTO) 0.9 x10^3/uL (0.3-0.8); MONOCYTES % (AUTO) 9.2 % (0.0-13.0); NEUTROPHILS % (AUTO) 79.4 % (42.0-75.0); PLATELET COUNT 172 X10^3/uL (150.0-450.0); RED BLOOD COUNT 5.27 X10^6/uL (4.7-6.0); RED CELL DISTRIBUTION WIDTH 19.7 % (11.6-16.5)
[2022-12-06 05:22] LABS: ALANINE AMINOTRANSFERASE 35 Units/L (12-78); ALKALINE PHOSPHATASE 56 Units/L (46-116); ASPARTATE AMINO TRANSFERASE 65 Units/L (15-37); BLOOD UREA NITROGEN 18 mg/dL (7-18); CALCIUM 8.2 mg/dL (8.5-10.1); CARBON DIOXIDE 32.7 mmol/L (21-32); CHLORIDE 98 mmol/L (98-107); COR NA(FOR HYPERGLY) 135 mmol/L (136-145); CREATININE 0.82 mg/dL (0.70-1.30); GLUCOSE 130 mg/dL (65-99); POTASSIUM 4.1 mmol/L (3.5-5.1); SODIUM 134 mmol/L (136-145); TOTAL PROTEIN 6.8 g/dL (6.4-8.2); eGFR NON BLACK RACES > 60 (>60)
[2022-12-06 05:40] LABS: ANISOCYTOSIS SLIGHT; MICROCYTOSIS SLIGHT; OVALOCYTES SLIGHT; PLATELET MORPHOLOGY COMMENT NORMAL (NORMAL); SCHISTOCYTES SLIGHT
[2022-12-06 05:41] LABS: HYPOCHROMASIA SLIGHT
[2022-12-06] MEDS: NORCO 5/325 MG TAB PO PRN (09:39)
--- NOTE | 2022-12-06 10:12 | RAD ---
HISTORYSOB, COUGHSTUDYCHEST, 1 [id number]/27/2023FINDINGSThe cardiomediastinal silhouette is stable. Worsening bilateral airspace opacities. No pneumothorax or effusion. The bony thorax appears intact.IMPRESSIONWorsening bilateral opacities concerning for pneumonia.Electronically signed by: SUSI BEJARANO (Dec 06, 2022 10:11:07)
[2022-12-06] MEDS: LOVENOX INJ 40 MG SYR SC SCH (10:39)
[2022-12-06] MEDS: ROCEPHIN VIAL 1 GRAM 1 G in NS 100 ML IV 100 ML IV SCH (10:40)
[2022-12-06] MEDS ORDERED: DUONEB 0.5 MG/3 MG (3 mL) NEB ONE (11:13)
[2022-12-06] MEDS ORDERED: ROBITUSSIN DM PO PRN (11:15)
[2022-12-06] MEDS: DUONEB 0.5 MG/3 MG (3 mL) NEB SCH ×5 (11:25→21:02)
[2022-12-06 11:48] LABS: ABG BASE EXCESS 6.6 mmol/L (-2.0-2.0)
[2022-12-06 11:49] LABS: ABG ALLEN TEST POS; ABG HCO3 31.3 mmol/L (22-26)
[2022-12-06] MEDS: NS 1,000 ML IV 1,000 ML IV SCH ×2 (12:28→15:51)
[2022-12-06] MEDS ORDERED: PERCOCET TAB 5/325 MG PO PRN (13:29)
[2022-12-06] MEDS ORDERED: NovoLIN R (or HumuLIN R) SUBCUT PRN (13:32)
--- NOTE | 2022-12-06 13:37 | DR.H&P ---
H&P - History & Physical for Day of: H&P Date: 12/05/22 - Chief Complaint Chief Complaint: fever, ccc, confusion - History of Present Illness History of Present Illness: 72 y/o male, ER, admission with co started with URI symptoms about 4 days ago, cough, congestion. Was seen in PCP office 2 days ago, covid swab negative then. Spiked fever yesterday. + having generalized weakness, aches, fever. Has been confused at times. Pt denies bowel/bladder issues. was started on Levaquin, steroids 3 days ago. Pt has PMH of DM, CAD, HTN, RA, OA and DASHA. - Past Medical History Past Medical History: [place], Coronary Artery Disease, Hypertension, Diabetes, GERD, Arthritis, Kidney Stones Additional Medical History: POLYCYTHEMIA - Past Surgical History Surgical History: Angioplasty/Stents, Cholecystectomy, Ortho Surgery - Family History Family Medical History: [place], Coronary Artery Disease, Hypertension - Social History Does patient currently use any type of tobacco product: No Have you used tobacco products in the last 12 months: No Type of Tobacco Use: Cigarettes How many years tobacco product used: 8 Does any household member use tobacco: No Alcohol Use: Occasionally Drug Use: None - Medications Home Medications: nalbuphine [From Nubain] Allergy (Unknown, Verified 12/05/22 15:13) codeine Allergy (Verified 12/05/22 15:13) CONTINUE taking the following medications carvedilol 6.25 mg tablet 12.5 mg PO BID 12/05/22 [History] fluticasone propionate 50 mcg/actuation nasal spray,suspension 1 spray intranasal 2XD 12/05/22 [History] levofloxacin 500 mg tablet 1 tab PO BID 12/05/22 [History] methylprednisolone 4 mg tablet 1 tab PO USEASDIRECTD 12/05/22 [History] - Review of Systems Constitutional: Fever, Weakness Eyes: No Symptoms Reported ENT: No Symptoms Reported Respiratory: Cough, SOB with Excertion, Sputum, Wheezing Cardiovascular: No Symptoms Reported Gastrointestinal: Nausea Genitourinary: No Symptoms Reported Musculoskeletal: Back Pain Skin: Wound (rle skin tear) Neurological: Weakness, Confusion (per spouse) - Physical Exam Vital Signs: Temperature 97.8 F Pulse Rate [Apical] 64 Pulse Rate 79 Respiratory Rate 25 Blood Pressure [Right Arm] 146/65 Blood Pressure 183/81 O2 Sat by Pulse Oximetry 95 Oriented: Person Eyes: Normal Ear: Normal, Left Throat: Normal Respiratory: Rhonchi Throughout Cardiovascular: Normal. negative: Edema : Normal Auscultation: Bowel Sounds: Normal Palpation: Normal Tenderness: Normal Skin: Decreased Turgur, Wound (2 skin tears to rle) Musculoskeletal: Back:Lumbar, Tender, Motor Deficit Psychiatric: Anxiety Mood Description: Anxious Affect: Anxious Speech Pattern: Clear, Appropriate - Assessment/Plan (1) Pneumonia Status: Acute Plan: ADMIT, BLOOD AND SPUTUM CULTURE ORDERED ON ADMISSION. CXR ON ADMISSION, IV ATBX THERAPY. LACTIC ACID LEVEL, VERIFY HOME MEDICATION. STRICT I&OS, RESP THERAPY. PRN SUPPLEMENTAL O2, RESP VIRAL SWAB ON ADMISSION (2) Acute febrile illness Status: Acute (3) Altered mental status Status: Acute (4) Type II diabetes mellitus, uncontrolled Status: Chronic (5) Osteoarthritis, multiple sites Status: Chronic (6) CAD (coronary artery disease) Status: Chronic (7) Benign essential HTN Status: Chronic - Allergies Allergies/Adverse Reactions: Allergies Allergy/AdvReac Type Severity Reaction Status Date / Time nalbuphine [From Nubain] Allergy Unknown Verified 12/05/22 15:13 codeine Allergy Verified 12/05/22 15:13
--- NOTE | 2022-12-06 13:41 | PCM.PROG ---
Progress Note - Progress Note for Day of Date of Exam: 12/06/22 - Subjective Subjective: PT IS 72 WM, ER ADMISSION WITH FLU LIKE ILLNESS, RESPIRATORY SYMPTOMS WITH CCC FOR A WEEK. PT FAILED OUTPT THERAPY WITH LEVAQUIN, PO STEROIDS, ROCEPHIN AND IM STEROIDS INJECTIONS. PT'S SPOUSE REPORTED PT WAS CONFUSED QUARTZ MINER. PT IS AWAKE AND ALERT THIS MORING, GOOD PO INTAKE. PT DENIES ANY N/V/D THIS AM. PT HAD VIRAL SWAB ON ADMISSION, NEGATIVE FOR FLU, COVID AND RSV. PT'S CHEST XRAY REVEALED BILATERAL OPACITIES. PT IS CURRENTLY ON IV ROCEPHIN AND WE ADDED ZITHROMAX AND A LOW DOSE OF SOLU MEDROL. PT HAS DM AND CAD. WE REVIEWED AND RESUMED HIS HOME MEDICATION. ROOM AIR ABG, TROPONIN, AND DDIMER ADDED TO AM LABS. PT DENIES ANY CHEST PAIN, CO COUGH AND CHEST CONGESTION AND CO HAD THIS AM. WE REVIEWED LABS AND DIAGNOSTICS TESTING WITH PT. - Past Medical Family Social History Past Med/Fam/Surg Hx: No changes since H&P Allergies: Allergies nalbuphine [From Nubain] Allergy (Unknown, Verified 12/05/22 15:13) Reason: Drug allergy codeine Allergy (Verified 12/05/22 15:13) - Review of Systems ROS: No change since H&P - Vital Signs and I&O's Vital Signs: Temperature 97.8 F Pulse Rate [Apical] 64 Pulse Rate 79 Respiratory Rate 25 Blood Pressure [Right Arm] 146/65 Blood Pressure 183/81 O2 Sat by Pulse Oximetry 95 Intake and Output: Intake & Output 12/04/22 12/05/22 12/06/22 12/07/22 11:59 11:59 11:59 11:59 Intake Total 580 / 580 Output Total 1000 / 1000 Balance -420 / -420 - Physical Exam Oriented: Person Eyes: Normal Ear: Normal, Left Throat: Normal Respiratory: Rhonchi Cardiovascular: Normal. negative: Edema : Normal Auscultation: Bowel Sounds: Normal Tenderness: Normal Skin: Decreased Turgur, Wound (2 skin tears to rle) Musculoskeletal: Back:Lumbar, Tender, Motor Deficit Psychiatric: Anxiety Mood Description: Anxious Affect: Anxious Speech Pattern: Clear, Appropriate - Laboratory and Diagnostics Result Diagrams: 12/06/22 04:16 12/06/22 04:16 Labs: 12/06/22 10:15 Sputum - Expectorated Sputum - Final Laboratory WBC 10.1 X10^3/uL (3.6-10.0) H 12/06/22 04:16 RBC 5.27 X10^6/uL (4.7-6.0) 12/06/22 04:16 Hgb 12.5 g/dL (13.5-18.0) L 12/06/22 04:16 Hct 38.3 % (42.0-54.0) L 12/06/22 04:16 MCV 72.8 fL (80.0-100.0) L 12/06/22 04:16 MCH 23.8 pg (27.0-34.0) L 12/06/22 04:16 MCHC 32.7 g/dL (33.0-35.0) L 12/06/22 04:16 RDW 19.7 % (11.6-16.5) H 12/06/22 04:16 Plt Count 172 X10^3/uL (150.0-450.0) 12/06/22 04:16 Plt Count Comment Adequate (ADEQUATE) 12/06/22 04:16 MPV 6.9 fL (7.4-11.0) L 12/06/22 04:16 Neut % (Auto) 79.4 % (42.0-75.0) H 12/06/22 04:16 Lymph % (Auto) 10.6 % (21.0-51.0) L 12/06/22 04:16 [place] % (Auto) 9.2 % (0.0-13.0) 12/06/22 04:16 Eos % (Auto) 0.3 % (0.9-2.9) L 12/06/22 04:16 Baso % (Auto) 0.5 % (0.2-1.0) 12/06/22 04:16 Neut # (Auto) 8.0 x10^3/uL (2.2-4.8) H 12/06/22 04:16 Lymph # (Auto) 1.1 X10^3/uL (1.3-2.9) L 12/06/22 04:16 [place] # (Auto) 0.9 x10^3/uL (0.3-0.8) H 12/06/22 04:16 Eos # (Auto) 0.0 x10^3/uL (0.0-0.2) 12/06/22 04:16 Baso # (Auto) 0.1 X10^3/uL (0.0-0.1) 12/06/22 04:16 Absolute Nucleated RBC 0.0 /100WBC 12/06/22 04:16 Plt Morphology Comment Normal (NORMAL) 12/06/22 04:16 RBC Morphology Abnormal (NORMAL) 12/06/22 04:16 Hypochromasia Slight A 12/06/22 04:16 Anisocytosis Slight A 12/06/22 04:16 Microcytosis Slight A 12/06/22 04:16 Tear Drop Cells Present 12/05/22 15:26 Ovalocytes Slight A 12/06/22 04:16 Schistocytes Slight A 12/06/22 04:16 D-Dimer 0.72 ug/ml (0.0-0.57) H 12/06/22 04:16 Sample Site Rb 12/06/22 11:41 ABG pH 7.460 (7.35-7.45) H 12/06/22 11:41 ABG pCO2 44.0 mmHg (35.0-45.0) 12/06/22 11:41 ABG pO2 80.0 mmHg (80.0-100.0) 12/06/22 11:41 ABG HCO3 31.3 mmol/L (22-26) H* 12/06/22 11:41 ABG O2 Saturation 96.0 % (90-100) 12/06/22 11:41 ABG Base Excess 6.6 mmol/L (-2.0-2.0) H 12/06/22 11:41 Patrick Test Pos 12/06/22 11:41 A-a Gradient 15.0 mmHg 12/06/22 11:41 FiO2 21.0 12/06/22 11:41 Blood Gas Comments Pt laney well cdn 12/06/22 11:41 Sodium 134 mmol/L (136-145) L 12/06/22 04:16 Corrected Sodium 135 mmol/L (136-145) L 12/06/22 04:16 Potassium 4.1 mmol/L (3.5-5.1) 12/06/22 04:16 Chloride 98 mmol/L (98-107) 12/06/22 04:16 Carbon Dioxide 32.7 mmol/L (21-32) H 12/06/22 04:16 BUN 18 mg/dL (7-18) 12/06/22 04:16 Creatinine 0.82 mg/dL (0.70-1.30) 12/06/22 04:16 Est GFR (MDRD) Af Amer > 60 (>60) 12/06/22 04:16 Est GFR (MDRD) Non-Af > 60 (>60) 12/06/22 04:16 Glucose 130 mg/dL (65-99) H 12/06/22 04:16 POC Glucose (mg/dL) 207 mg/dL (65-99) H 12/06/22 10:29 Lactic Acid 1.5 mmol/L (0.4-2.0) 12/05/22 15:26 Calcium 8.2 mg/dL (8.5-10.1) L 12/06/22 04:16 Corrected Calcium 9.0 mg/dL (8.5-10.1) 12/06/22 04:16 Total Bilirubin 0.30 mg/dL (0.2-1.0) 12/06/22 04:16 AST 65 Units/L (15-37) H 12/06/22 04:16 ALT 35 Units/L (12-78) 12/06/22 04:16 Alkaline Phosphatase 56 Units/L (46-116) 12/06/22 04:16 Troponin I High Sens 16.2 ng/L (4.0-60.0) 12/06/22 09:20 Total Protein 6.8 g/dL (6.4-8.2) 12/06/22 04:16 Albumin 3.0 g/dL (3.4-5.0) L 12/06/22 04:16 Globulin 3.8 g/dL (2.5-4.5) 12/06/22 04:16 Albumin/Globulin Ratio 0.8 Ratio (1.1-2.1) L 12/06/22 04:16 Lipase 53 Units/L (73-393) L 12/05/22 15:26 Specimen Type Clean catch urine 12/05/22 17:32 Urine Color Yellow (YELLOW) 12/05/22 17:32 Urine Appearance Clear (CLEAR) 12/05/22 17:32 Urine pH 5.0 (5.0 - 8.0) 12/05/22 17:32 Ur Specific [place] 1.015 (1.000-1.030) 12/05/22 17:32 Urine Protein 3+ (NEGATIVE) 12/05/22 17:32 Urine Glucose (UA) Negative (NEGATIVE) 12/05/22 17:32 Urine Ketones 2+ (NEGATIVE) 12/05/22 17:32 Urine Blood 1+ (NEGATIVE) 12/05/22 17:32 Urine Nitrite Negative (NEGATIVE) 12/05/22 17:32 Urine Bilirubin Negative (NEGATIVE) 12/05/22 17:32 Urine Urobilinogen Normal (NORMAL) 12/05/22 17:32 Ur Leukocyte Esterase Negative (NEGATIVE) 12/05/22 17:32 Urine RBC 3-5 /HPF (0-3) A 12/05/22 17:32 Urine WBC None seen /HPF (0-5) 12/05/22 17:32 Ur Squamous Epith Cells Rare /HPF (NEGATIVE) 12/05/22 17:32 Urine Bacteria Trace /HPF (NEGATIVE) 12/05/22 17:32 Urine Mucus Few /HPF (NEGATIVE) 12/05/22 17:32 Ur Culture Indicated? No/not indicated 12/05/22 17:32 SARS-CoV-2 (PCR) Negative (NEGATIVE) 12/05/22 15:29 Influenza Type A (PCR) Negative (NEGATIVE) 12/05/22 15:29 Influenza Type B (PCR) Negative (NEGATIVE) 12/05/22 15:29 RSV (PCR) Negative (NEGATIVE) 12/05/22 15:29 - Plan (1) Pneumonia Status: Acute Plan: BLOOD AND SPUTUM CULTURE ORDERED ON ADMISSION, UC ORDERED. REPEAT AM CXR, IV ATBX THERAPY. LACTIC ACID LEVEL ON ADMISSION, VERIFY HOME MEDICATION. STRICT I&OS, RESP THERAPY. BS CONTROL. PRN SUPPLEMENTAL O2, RESP VIRAL SWAB ON ADMISSION (2) Acute febrile illness Status: Acute (3) Altered mental status Status: Acute (4) Type II diabetes mellitus, uncontrolled Status: Chronic (5) Osteoarthritis, multiple sites Status: Chronic (6) CAD (coronary artery disease) Status: Chronic (7) Benign essential HTN Status: Chronic
--- NOTE | 2022-12-06 15:33 | CT ---
HISTORYAMS, R/O PESTUDYCTA CHESTCOMPARISONPortable chest radiograph from December 06, [address]22TECHNIQUE[address] CT images of the chest were obtained after the administration of 75 mL Omnipaque 350 IV contrast utilizing a CTA protocol. 3D MIPS were performed and reviewed for further evaluation.Radiation dose: 170.25 mGy-cm total DLPFINDINGSNo significant pericardial effusion.Cardiac chambers are enlarged.Coronary artery calcifications.No mediastinal or hilar lymphadenopathy.Aorta is normal in caliber without dissection.Pulmonary arteries are normal in caliber without filling defects to suggest a pulmonary embolus.Airways are widely patent.Thyroid appears normal.Diffuse bronchial wall thickening.No pleural effusion.No focal infiltrate.No pneumothorax.No concerning lung parenchymal lesion identified.Imaged portion of the upper abdomen is unremarkable.No acute osseous abnormality.Moderate to severe multilevel degenerative disc and joint changes.IMPRESSION1. No pulmonary embolus identified.2. Diffuse bronchial wall thickening. Differential diagnosis includes acute/chronic bronchitis and chronic cardiogenic edema.Electronically signed by: Siddhartha Singh (Dec 06, 2022 15:32:35)
[2022-12-06] MEDS: SOLU-Medrol 40 MG VIAL IVP SCH ×2 (15:51→21:38)
[2022-12-06] MEDS: ZITHROMAX INJ 500 MG VIAL 500 MG in NS 250 ML IV 250 ML IV SCH (15:52)
[2022-12-06] MEDS ORDERED: ZESTRIL TAB 40 MG ONE (16:06)
[2022-12-06] MEDS ORDERED: COREG TAB 25 MG ONE (16:06)
[2022-12-06] MEDS ORDERED: COREG TAB 25 MG PO SCH (17:00)
[2022-12-06] MEDS: ZESTRIL TAB 40 MG PO SCH (17:01)
[2022-12-06] MEDS: NovoLIN R (or HumuLIN R) SC PRN ×2 (17:18→20:50)
[2022-12-06] MEDS ORDERED: NovoLIN R (or HumuLIN R) ONE (17:23)
[2022-12-06] MEDS: CRESTOR TAB 10 MG PO SCH (20:32)
[2022-12-06] MEDS: COREG TAB 6.25 MG PO SCH (20:33)
[2022-12-06] MEDS: MONOKET or IMDUR PO SCH (20:34)
[2022-12-06] MEDS: ZETIA TAB 10 MG PO SCH (20:35)
[2022-12-06] MEDS: XANAX PO SCH (20:35)
[2022-12-06] MEDS: NEURONTIN TAB 600 MG PO SCH (20:35)
[2022-12-06] MEDS: SNACK - Diabetic Appropriate PO SCH (20:38)
[2022-12-06] MEDS: PULMICORT NEB TX 0.5 MG NEB SCH (21:02)
[2022-12-07] MEDS: DUONEB 0.5 MG/3 MG (3 mL) NEB SCH ×5 (00:33→20:13)
[2022-12-07 05:16] LABS: BASOPHILS % (AUTO) 0.2 % (0.2-1.0); HEMATOCRIT 34.2 % (42.0-54.0); HEMOGLOBIN 11.1 g/dL (13.5-18.0); LYMPHOCYTES # (AUTO) 0.4 X10^3/uL (1.3-2.9); LYMPHOCYTES % (AUTO) 7.5 % (21.0-51.0); MEAN CORPUSCULAR HEMOGLOBIN 23.6 pg (27.0-34.0); MEAN CORPUSCULAR HGB CONC 32.5 g/dL (33.0-35.0); MEAN CORPUSCULAR VOLUME 72.7 fL (80.0-100.0); MONOCYTES # (AUTO) 0.2 x10^3/uL (0.3-0.8); MONOCYTES % (AUTO) 2.7 % (0.0-13.0); NEUTROPHILS % (AUTO) 89.6 % (42.0-75.0); PLATELET COUNT 166 X10^3/uL (150.0-450.0); RED BLOOD COUNT 4.71 X10^6/uL (4.7-6.0); RED CELL DISTRIBUTION WIDTH 19.2 % (11.6-16.5); WHITE BLOOD COUNT 5.6 X10^3/uL (3.6-10.0)
[2022-12-07] MEDS: SOLU-Medrol 40 MG VIAL IVP SCH (05:18)
[2022-12-07] MEDS: NovoLIN R (or HumuLIN R) SC PRN ×4 (05:19→21:30)
[2022-12-07 05:33] LABS: ALANINE AMINOTRANSFERASE 43 Units/L (12-78); ALBUMIN 2.8 g/dL (3.4-5.0); ALKALINE PHOSPHATASE 49 Units/L (46-116); ASPARTATE AMINO TRANSFERASE 55 Units/L (15-37); BLOOD UREA NITROGEN 25 mg/dL (7-18); CALCIUM 7.6 mg/dL (8.5-10.1); CARBON DIOXIDE 29.7 mmol/L (21-32); CHLORIDE 98 mmol/L (98-107); COR CA(FOR HYPOALB) 8.6 mg/dL (8.5-10.1); COR NA(FOR HYPERGLY) 139 mmol/L (136-145); CREATININE 1.08 mg/dL (0.70-1.30); GLUCOSE 251 mg/dL (65-99); POTASSIUM 4.2 mmol/L (3.5-5.1); SODIUM 135 mmol/L (136-145); eGFR NON BLACK RACES > 60 (>60)
[2022-12-07 05:43] LABS: ANISOCYTOSIS SLIGHT; HYPOCHROMASIA SLIGHT; MICROCYTOSIS SLIGHT; PLATELET MORPHOLOGY COMMENT NORMAL (NORMAL); TEAR DROP CELLS SLIGHT
[2022-12-07 05:44] LABS: OVALOCYTES SLIGHT; SCHISTOCYTES SLIGHT
[2022-12-07] MEDS: PULMICORT NEB TX 0.5 MG NEB SCH ×2 (08:26→20:14)
[2022-12-07] MEDS: MONOKET or IMDUR PO SCH ×2 (08:49→21:21)
[2022-12-07] MEDS: PROTONIX TAB 40 MG PO SCH (08:49)
[2022-12-07] MEDS: ZYLOPRIM PO SCH (08:49)
[2022-12-07] MEDS: COREG TAB 6.25 MG PO SCH ×2 (08:49→21:20)
[2022-12-07] MEDS: LOVENOX INJ 40 MG SYR SC SCH (08:49)
[2022-12-07] MEDS: ZESTRIL TAB 40 MG PO SCH (08:50)
[2022-12-07] MEDS: PLAVIX PO SCH (08:50)
[2022-12-07] MEDS: ZITHROMAX INJ 500 MG VIAL 500 MG in NS 250 ML IV 250 ML IV SCH (08:50)
[2022-12-07] MEDS: ROCEPHIN VIAL 1 GRAM 1 G in NS 100 ML IV 100 ML IV SCH (08:50)
[2022-12-07] MEDS ORDERED: DURAGESIC 75 mcg/HR PATCH TD SCH (09:00)
[2022-12-07] MEDS: NEURONTIN TAB 600 MG PO SCH ×2 (10:00→21:21)
[2022-12-07] MEDS: NS 1,000 ML IV 1,000 ML IV SCH (12:44)
--- NOTE | 2022-12-07 20:03 | PCM.PROG ---
Progress Note Progress Note for Day of Date of Exam: 12/07/22 Subjective Subjective: Patient seen at bedside, no acute events overnight. He is currently admitted for respiratory infection and flu-like illness. He reports being sick for over a week with worsening cough and weakness. On admission, covid, flu and RSV swabs were all negative. Resp panel send out is pending. He still has productive cough. He is currently on room air with sats > 92%. He did have elevated d-dimer, CTA was negative for PE. It did show bronchial wall thickening. Labs/imaging reviewed CTA: no PE, bronchial wall thickening noted Sputum Cx: normal monica Plan: Continue Rocephin and Azithromycin. RT to evaluate for home O2 with walk test. O2 prn, monitor O2 sats. Follow pending cultures. Continue cough medicine, nebs and pulmicort. Advised to ambulate as tolerated. Monitor AM labs/imaging. Past Medical Family Social History Past Med/Fam/Surg Hx: No changes since H&P Allergies: Allergies nalbuphine [From Nubain] Allergy (Unknown, Verified 12/05/22 15:13) Reason: Drug allergy codeine Allergy (Verified 12/05/22 15:13) Review of Systems ROS: No change since H&P Vital Signs and I&O's Vital Signs: Temperature 97.8 F Pulse Rate [Apical] 64 Pulse Rate 104 Respiratory Rate 22 Blood Pressure [Right Arm] 146/65 Blood Pressure 194/93 O2 Sat by Pulse Oximetry 94 Intake and Output: Intake & Output 12/04/22 12/05/22 12/06/22 12/07/22 23:59 23:59 23:59 23:59 Intake Total 440 / 440 870 / 870 790 / 790 Output Total 400 / 400 1400 / 1400 Balance 40 / 40 -530 / -530 790 / 790 Physical Exam Oriented: Person Eyes: Normal Ear: Normal Throat: Normal Respiratory: Rhonchi Cardiovascular: Normal; negative Edema Auscultation: Bowel Sounds: Normal Tenderness: Normal Skin: Decreased Turgur and Wound (2 skin tears to rle) Musculoskeletal: Back:Lumbar, Tender and Motor Deficit Psychiatric: Anxiety Mood Description: Anxious Affect: Anxious Speech Pattern: Clear and Appropriate Laboratory and Diagnostics Result Diagrams: 12/07/22 04:50 12/07/22 17:10 Labs: 12/05/22 15:50 Blood Blood Culture - Preliminary 12/05/22 15:30 Blood Blood Culture - Preliminary 12/06/22 10:15 Sputum - Expectorated Sputum Sputum Culture - Preliminary 12/06/22 10:15 Sputum - Expectorated Sputum - Final Laboratory WBC 5.6 X10^3/uL (3.6-10.0) 12/07/22 04:50 RBC 4.71 X10^6/uL (4.7-6.0) 12/07/22 04:50 Hgb 11.1 g/dL (13.5-18.0) L 12/07/22 04:50 Hct 34.2 % (42.0-54.0) L 12/07/22 04:50 MCV 72.7 fL (80.0-100.0) L 12/07/22 04:50 MCH 23.6 pg (27.0-34.0) L 12/07/22 04:50 MCHC 32.5 g/dL (33.0-35.0) L 12/07/22 04:50 RDW 19.2 % (11.6-16.5) H 12/07/22 04:50 Plt Count 166 X10^3/uL (150.0-450.0) 12/07/22 04:50 Plt Count Comment Adequate (ADEQUATE) 12/07/22 04:50 MPV 7.0 fL (7.4-11.0) L 12/07/22 04:50 Neut % (Auto) 89.6 % (42.0-75.0) H 12/07/22 04:50 Lymph % (Auto) 7.5 % (21.0-51.0) L 12/07/22 04:50 [place] % (Auto) 2.7 % (0.0-13.0) 12/07/22 04:50 Eos % (Auto) 0.0 % (0.9-2.9) L 12/07/22 04:50 Baso % (Auto) 0.2 % (0.2-1.0) 12/07/22 04:50 Neut # (Auto) 5.0 x10^3/uL (2.2-4.8) H 12/07/22 04:50 Lymph # (Auto) 0.4 X10^3/uL (1.3-2.9) L 12/07/22 04:50 [place] # (Auto) 0.2 x10^3/uL (0.3-0.8) L 12/07/22 04:50 Eos # (Auto) 0.0 x10^3/uL (0.0-0.2) 12/07/22 04:50 Baso # (Auto) 0.0 X10^3/uL (0.0-0.1) 12/07/22 04:50 Absolute Nucleated RBC 0.0 /100WBC 12/07/22 04:50 Plt Morphology Comment Normal (NORMAL) 12/07/22 04:50 RBC Morphology Abnormal (NORMAL) 12/07/22 04:50 Hypochromasia Slight A 12/07/22 04:50 Anisocytosis Slight A 12/07/22 04:50 Microcytosis Slight A 12/07/22 04:50 Tear Drop Cells Slight 12/07/22 04:50 Ovalocytes Slight A 12/07/22 04:50 Schistocytes Slight A 12/07/22 04:50 D-Dimer 0.72 ug/ml (0.0-0.57) H 12/06/22 04:16 Sample Site Rb 12/06/22 11:41 ABG pH 7.460 (7.35-7.45) H 12/06/22 11:41 ABG pCO2 44.0 mmHg (35.0-45.0) 12/06/22 11:41 ABG pO2 80.0 mmHg (80.0-100.0) 12/06/22 11:41 ABG HCO3 31.3 mmol/L (22-26) H* 12/06/22 11:41 ABG O2 Saturation 96.0 % (90-100) 12/06/22 11:41 ABG Base Excess 6.6 mmol/L (-2.0-2.0) H 12/06/22 11:41 Patrick Test Pos 12/06/22 11:41 A-a Gradient 15.0 mmHg 12/06/22 11:41 FiO2 21.0 12/06/22 11:41 Blood Gas Comments Pt laney well cdn 12/06/22 11:41 Sodium 135 mmol/L (136-145) L 12/07/22 04:50 Corrected Sodium 139 mmol/L (136-145) 12/07/22 04:50 Potassium 4.2 mmol/L (3.5-5.1) 12/07/22 04:50 Chloride 98 mmol/L (98-107) 12/07/22 04:50 Carbon Dioxide 29.7 mmol/L (21-32) 12/07/22 04:50 BUN 25 mg/dL (7-18) H 12/07/22 04:50 Creatinine 1.08 mg/dL (0.70-1.30) 12/07/22 04:50 Est GFR (MDRD) Af Amer > 60 (>60) 12/07/22 04:50 Est GFR (MDRD) Non-Af > 60 (>60) 12/07/22 04:50 Glucose 446 mg/dL (65-99) H 12/07/22 17:10 POC Glucose (mg/dL) 443 mg/dL (65-99) H 12/07/22 16:55 Lactic Acid 1.5 mmol/L (0.4-2.0) 12/05/22 15:26 Calcium 7.6 mg/dL (8.5-10.1) L 12/07/22 04:50 Corrected Calcium 8.6 mg/dL (8.5-10.1) 12/07/22 04:50 Total Bilirubin 0.20 mg/dL (0.2-1.0) 12/07/22 04:50 AST 55 Units/L (15-37) H 12/07/22 04:50 ALT 43 Units/L (12-78) 12/07/22 04:50 Alkaline Phosphatase 49 Units/L (46-116) 12/07/22 04:50 Troponin I High Sens 11.2 ng/L (4.0-60.0) 12/06/22 21:10 Total Protein 6.0 g/dL (6.4-8.2) L 12/07/22 04:50 Albumin 2.8 g/dL (3.4-5.0) L 12/07/22 04:50 Globulin 3.2 g/dL (2.5-4.5) 12/07/22 04:50 Albumin/Globulin Ratio 0.9 Ratio (1.1-2.1) L 12/07/22 04:50 Lipase 53 Units/L (73-393) L 12/05/22 15:26 Specimen Type Clean catch urine 12/05/22 17:32 Urine Color Yellow (YELLOW) 12/05/22 17:32 Urine Appearance Clear (CLEAR) 12/05/22 17:32 Urine pH 5.0 (5.0 - 8.0) 12/05/22 17:32 Ur Specific [place] 1.015 (1.000-1.030) 12/05/22 17:32 Urine Protein 3+ (NEGATIVE) 12/05/22 17:32 Urine Glucose (UA) Negative (NEGATIVE) 12/05/22 17:32 Urine Ketones 2+ (NEGATIVE) 12/05/22 17:32 Urine Blood 1+ (NEGATIVE) 12/05/22 17:32 Urine Nitrite Negative (NEGATIVE) 12/05/22 17: Urine Bilirubin Negative (NEGATIVE) 12/05/22 17:32 Urine Urobilinogen Normal (NORMAL) 12/05/22 17:32 Ur Leukocyte Esterase Negative (NEGATIVE) 12/05/22 17:32 Urine RBC 3-5 /HPF (0-3) A 12/05/22 17:32 Urine WBC None seen /HPF (0-5) 12/05/22 17:32 Ur Squamous Epith Cells Rare /HPF (NEGATIVE) 12/05/22 17:32 Urine Bacteria Trace /HPF (NEGATIVE) 12/05/22 17:32 Urine Mucus Few /HPF (NEGATIVE) 12/05/22 17:32 Ur Culture Indicated? No/not indicated 12/05/22 17:32 SARS-CoV-2 (PCR) Negative (NEGATIVE) 12/05/22 15:29 Influenza Type A (PCR) Negative (NEGATIVE) 12/05/22 15:29 Influenza Type B (PCR) Negative (NEGATIVE) 12/05/22 15:29 RSV (PCR) Negative (NEGATIVE) 12/05/22 15:29 Plan (1) Pneumonia: Status: Acute (2) Acute febrile illness: Status: Acute (3) Altered mental status: Status: Acute (4) Type II diabetes mellitus, uncontrolled: Status: Chronic (5) Osteoarthritis, multiple sites: Status: Chronic (6) CAD (coronary artery disease): Status: Chronic (7) Benign essential HTN: Status: Chronic
[2022-12-07] MEDS: SNACK - Diabetic Appropriate PO SCH (21:10)
[2022-12-07] MEDS: CRESTOR TAB 10 MG PO SCH (21:20)
[2022-12-07] MEDS: XANAX PO SCH (21:21)
[2022-12-07] MEDS: ZETIA TAB 10 MG PO SCH (21:21)
[2022-12-08] MEDS: DUONEB 0.5 MG/3 MG (3 mL) NEB SCH ×3 (00:10→08:28)
[2022-12-08] MEDS: NovoLIN R (or HumuLIN R) SC PRN ×2 (05:39→09:06)
[2022-12-08 07:58] LABS: BASOPHILS % (AUTO) 0.2 % (0.2-1.0); HEMATOCRIT 35.1 % (42.0-54.0); HEMOGLOBIN 11.3 g/dL (13.5-18.0); LYMPHOCYTES # (AUTO) 0.5 X10^3/uL (1.3-2.9); LYMPHOCYTES % (AUTO) 6.6 % (21.0-51.0); MEAN CORPUSCULAR HEMOGLOBIN 23.4 pg (27.0-34.0); MEAN CORPUSCULAR HGB CONC 32.2 g/dL (33.0-35.0); MEAN CORPUSCULAR VOLUME 72.5 fL (80.0-100.0); MEAN PLATELET VOLUME 7.1 fL (7.4-11.0); MONOCYTES # (AUTO) 0.4 x10^3/uL (0.3-0.8); MONOCYTES % (AUTO) 5.4 % (0.0-13.0); NEUTROPHILS # (AUTO) 6.8 x10^3/uL (2.2-4.8); NEUTROPHILS % (AUTO) 87.8 % (42.0-75.0); PLATELET COUNT 205 X10^3/uL (150.0-450.0); RED BLOOD COUNT 4.84 X10^6/uL (4.7-6.0); WHITE BLOOD COUNT 7.8 X10^3/uL (3.6-10.0)
[2022-12-08 07:59] LABS: ALANINE AMINOTRANSFERASE 119 Units/L (12-78); ALBUMIN 2.6 g/dL (3.4-5.0); ALKALINE PHOSPHATASE 62 Units/L (46-116); ASPARTATE AMINO TRANSFERASE 113 Units/L (15-37); BLOOD UREA NITROGEN 25 mg/dL (7-18); CARBON DIOXIDE 28.7 mmol/L (21-32); CHLORIDE 100 mmol/L (98-107); COR CA(FOR HYPOALB) 9.1 mg/dL (8.5-10.1); COR NA(FOR HYPERGLY) 141 mmol/L (136-145); CREATININE 1.02 mg/dL (0.70-1.30); GLUCOSE 370 mg/dL (65-99); SODIUM 135 mmol/L (136-145); TOTAL PROTEIN 6.2 g/dL (6.4-8.2); eGFR NON BLACK RACES > 60 (>60)
[2022-12-08 08:18] LABS: ANISOCYTOSIS SLIGHT; HYPOCHROMASIA 1+; MICROCYTOSIS SLIGHT; OVALOCYTES PRESENT; PLATELET MORPHOLOGY COMMENT NORMAL (NORMAL); TEAR DROP CELLS PRESENT
[2022-12-08] MEDS: LOVENOX INJ 40 MG SYR SC SCH (08:26)
[2022-12-08] MEDS: ZESTRIL TAB 40 MG PO SCH (08:26)
[2022-12-08] MEDS: ROCEPHIN VIAL 1 GRAM 1 G in NS 100 ML IV 100 ML IV SCH (08:26)
[2022-12-08] MEDS: ZITHROMAX INJ 500 MG VIAL 500 MG in NS 250 ML IV 250 ML IV SCH (08:26)
[2022-12-08] MEDS: NEURONTIN TAB 600 MG PO SCH (08:26)
[2022-12-08] MEDS: PLAVIX PO SCH (08:26)
[2022-12-08] MEDS: PROTONIX TAB 40 MG PO SCH (08:26)
[2022-12-08] MEDS: COREG TAB 6.25 MG PO SCH (08:27)
[2022-12-08] MEDS: ZYLOPRIM PO SCH (08:27)
[2022-12-08] MEDS: PULMICORT NEB TX 0.5 MG NEB SCH (08:28)
[2022-12-08] MEDS: MONOKET or IMDUR PO SCH (08:31)
[2022-12-08 09:40] VITALS: BP 153/74
--- NOTE | 2022-12-10 11:03 | W.DIS.FURT ---
Summary of Discharge Discharge Summary of Date Date of Exam: 12/08/22 Admission Date Date of Admission: 12/05/22 Admission Diagnosis Patient Problems (Updated 12/06/22 @ 13:37 by NARCISO CHÁVEZ) Acute febrile illness (Acute) R50.9 Altered mental status (Acute) R41.82 Pneumonia (Acute) J18.9 Type II diabetes mellitus, uncontrolled (Chronic) E11.65 Osteoarthritis, multiple sites (Chronic) M15.9 CAD (coronary artery disease) (Chronic) I25.10 Benign essential HTN (Chronic) I10 Hospital Course: Patient is a 72y/o male with a PMH of CAD, DM, HTN, OA, JOB and RA presented with URI symptoms that had been present for a few days. He reports having productive cough and congestion. He was seen outpatient and treated with Levaquin and steroids. His covid swab as negative. He continued to have worseni ng respiratory symptoms associated with body aches and fever. In the ER, COVID, Flu and RSV were all negative. He was initially placed on oxygen 2L via [place]. His d-dimer was elevated, CTA was negative for PE but did show bronchial wall thickening. He was started on IV antibiotics, nebs and pulmicort. His respiratory symptoms did improve. He was on room air and ambulating in the room. Respiratory panel was sent out and came back with Parainfluenza. Patient was adamant about going home as he was feeling better. Walk test showed good sats on room, patient did not qualify for home oxygen. He was stable for discharge and will f/u with PCP as scheduled. Vital Signs: Vital Signs (72 hours) 12/05/22 15:09 12/05/22 15:19 12/05/22 15:20 Temperature 102.5 F H Pulse Rate 132 H 124 H Pulse Rate [Apical] Respiratory Rate 20 22 Blood Pressure 161/68 195/95 Blood Pressure [Right Arm] O2 Sat by Pulse Oximetry 93 L 93 L Oxygen Delivery Method Room Air Oxygen Flow Rate FIO2% 12/05/22 15:20 12/05/22 15:30 12/05/22 15:30 Temperature Pulse Rate 125 H 124 H Pulse Rate [Apical] Respiratory Rate 17 16 Blood Pressure 171/91 Blood Pressure [Right Arm] O2 Sat by Pulse Oximetry 93 L 93 L Oxygen Delivery Method Oxygen Flow Rate FIO2% 12/05/22 15:45 12/05/22 15:45 12/05/22 16:20 Temperature 99.1 F Pulse Rate 115 H Pulse Rate [Apical] Respiratory Rate 23 20 Blood Pressure 173/89 Blood Pressure [Right Arm] 191/81 O2 Sat by Pulse Oximetry 96 96 Oxygen Delivery Method Nasal Cannula Oxygen Flow Rate FIO2% 12/05/22 15:53 12/05/22 15:53 12/05/22 16:00 Temperature Pulse Rate 119 H Pulse Rate [Apical] Respiratory Rate 23 Blood Pressure 151/73 170/79 Blood Pressure [Right Arm] O2 Sat by Pulse Oximetry 96 Oxygen Delivery Method Oxygen Flow Rate FIO2% 12/05/22 16:00 12/05/22 16:15 12/05/22 16:15 Temperature Pulse Rate 113 H 122 H Pulse Rate [Apical] Respiratory Rate 19 22 Blood Pressure 191/86 Blood Pressure [Right Arm] O2 Sat by Pulse Oximetry 96 98 Oxygen Delivery Method Oxygen Flow Rate FIO2% 12/05/22 16:30 12/05/22 16:30 12/05/22 16:30 Temperature Pulse Rate 111 H Pulse Rate [Apical] Respiratory Rate 19 Blood Pressure 179/82 179/82 Blood Pressure [Right Arm] O2 Sat by Pulse Oximetry 98 Oxygen Delivery Method Oxygen Flow Rate FIO2% 12/05/22 16:45 12/05/22 16:45 12/05/22 17:00 Temperature Pulse Rate 107 H Pulse Rate [Apical] Respiratory Rate 19 Blood Pressure 179/81 173/79 Blood Pressure [Right Arm] O2 Sat by Pulse Oximetry 98 Oxygen Delivery Method Oxygen Flow Rate FIO2% 12/05/22 17:00 12/05/22 17:15 12/05/22 17:15 Temperature Pulse Rate 110 H 108 H Pulse Rate [Apical] Respiratory Rate 18 17 Blood Pressure 158/63 Blood Pressure [Right Arm] O2 Sat by Pulse Oximetry 99 98 Oxygen Delivery Method Oxygen Flow Rate FIO2% 12/05/22 17:31 12/05/22 17:30 12/05/22 17:30 Temperature 100.2 F H Pulse Rate 112 H 114 H Pulse Rate [Apical] Respiratory Rate 14 17 Blood Pressure 154/70 154/70 Blood Pressure [Right Arm] O2 Sat by Pulse Oximetry 99 99 Oxygen Delivery Method Nasal Cannula Oxygen Flow Rate 2 FIO2% 12/05/22 17:45 12/05/22 17:45 12/05/22 18:00 Temperature Pulse Rate 105 H Pulse Rate [Apical] Respiratory Rate 20 Blood Pressure 139/57 144/66 Blood Pressure [Right Arm] O2 Sat by Pulse Oximetry 96 Oxygen Delivery Method Oxygen Flow Rate FIO2% 12/05/22 18:00 12/05/22 18:15 12/05/22 18:15 Temperature Pulse Rate 99 H 95 H Pulse Rate [Apical] Respiratory Rate 33 H Blood Pressure 140/63 Blood Pressure [Right Arm] O2 Sat by Pulse Oximetry 89 L 96 Oxygen Delivery Method Oxygen Flow Rate FIO2% 12/05/22 18:30 12/05/22 18:30 12/05/22 18:30 Temperature Pulse Rate 96 H Pulse Rate [Apical] Respiratory Rate 15 Blood Pressure 150/68 150/68 Blood Pressure [Right Arm] O2 Sat by Pulse Oximetry 97 Oxygen Delivery Method Oxygen Flow Rate FIO2% 12/05/22 18:45 12/05/22 18:45 12/05/22 19:00 Temperature Pulse Rate 93 H Pulse Rate [Apical] Respiratory Rate 15 Blood Pressure 128/60 132/64 Blood Pressure [Right Arm] O2 Sat by Pulse Oximetry 97 Oxygen Delivery Method Oxygen Flow Rate FIO2% 12/05/22 19:00 12/05/22 20:00 12/05/22 19:50 Temperature 99.3 F Pulse Rate 92 H Pulse Rate [Apical] 95 H Respiratory Rate 17 27 H Blood Pressure Blood Pressure [Right Arm] 168/79 O2 Sat by Pulse Oximetry 97 96 Oxygen Delivery Method Nasal Cannula Nasal Cannula Oxygen Flow Rate 2 FIO2% 28 12/05/22 20:00 12/05/22 21:00 12/05/22 22:00 Temperature Pulse Rate Pulse Rate [Apical] 98 H 82 82 Respiratory Rate 31 H 18 24 Blood Pressure Blood Pressure [Right Arm] 163/74 131/80 135/64 O2 Sat by Pulse Oximetry 96 94 L 97 Oxygen Delivery Method Nasal Cannula Nasal Cannula Nasal Cannula Oxygen Flow Rate FIO2% 12/05/22 23:00 12/06/22 00:00 12/06/22 01:00 Temperature 99.1 F Pulse Rate Pulse Rate [Apical] 79 75 77 Respiratory Rate 23 18 28 H Blood Pressure Blood Pressure [Right Arm] 168/79 147/67 145/91 O2 Sat by Pulse Oximetry 95 96 97 Oxygen Delivery Method Nasal Cannula Nasal Cannula Nasal Cannula Oxygen Flow Rate FIO2% 12/06/22 02:00 12/06/22 03:00 12/05/22 23:50 Temperature Pulse Rate Pulse Rate [Apical] 75 65 Respiratory Rate 19 13 22 Blood Pressure Blood Pressure [Right Arm] 168/72 147/61 O2 Sat by Pulse Oximetry 96 95 Oxygen Delivery Method Nasal Cannula Nasal Cannula Oxygen Flow Rate FIO2% 12/06/22 00:50 12/06/22 04:00 12/06/22 05:00 Temperature 98.4 F Pulse Rate Pulse Rate [Apical] 72 68 Respiratory Rate 22 15 13 Blood Pressure Blood Pressure [Right Arm] 168/72 166/74 O2 Sat by Pulse Oximetry 94 L 96 Oxygen Delivery Method Nasal Cannula Nasal Cannula Oxygen Flow Rate FIO2% 12/06/22 06:00 12/06/22 08:00 12/06/22 09:11 Temperature 97.8 F Pulse Rate Pulse Rate [Apical] 64 Respiratory Rate 23 Blood Pressure Blood Pressure [Right Arm] 146/65 O2 Sat by Pulse Oximetry 95 Oxygen Delivery Method Nasal Cannula Nasal Cannula Oxygen Flow Rate 2 FIO2% 12/05/22 19:15 12/05/22 19:15 12/05/22 19:30 Temperature Pulse Rate 96 H Pulse Rate [Apical] Respiratory Rate 17 Blood Pressure 129/63 154/72 Blood Pressure [Right Arm] O2 Sat by Pulse Oximetry 98 Oxygen Delivery Method Oxygen Flow Rate FIO2% 12/05/22 19:30 12/06/22 07:15 12/06/22 07:30 Temperature Pulse Rate 99 H 82 79 Pulse Rate [Apical] Respiratory Rate 34 H 31 H 18 Blood Pressure Blood Pressure [Right Arm] O2 Sat by Pulse Oximetry 97 97 93 L Oxygen Delivery Method Oxygen Flow Rate FIO2% 12/06/22 07:45 12/06/22 08:00 12/06/22 08:00 Temperature Pulse Rate 79 76 Pulse Rate [Apical] Respiratory Rate 25 H 16 Blood Pressure 174/90 Blood Pressure [Right Arm] O2 Sat by Pulse Oximetry 94 L 94 L Oxygen Delivery Method Oxygen Flow Rate FIO2% 12/06/22 08:15 12/06/22 08:28 12/06/22 08:28 Temperature Pulse Rate 78 82 Pulse Rate [Apical] Respiratory Rate 12 20 Blood Pressure 183/81 Blood Pressure [Right Arm] O2 Sat by Pulse Oximetry 94 L 95 Oxygen Delivery Method Oxygen Flow Rate FIO2% 12/06/22 08:30 12/06/22 08:45 12/06/22 09:39 Temperature Pulse Rate 80 80 Pulse Rate [Apical] Respiratory Rate 18 17 22 Blood Pressure Blood Pressure [Right Arm] O2 Sat by Pulse Oximetry 95 94 L Oxygen Delivery Method Oxygen Flow Rate FIO2% 12/06/22 10:34 12/06/22 10:39 12/06/22 09:00 Temperature 97.8 F Pulse Rate Pulse Rate [Apical] Respiratory Rate 22 22 Blood Pressure 183/81 168/78 Blood Pressure [Right Arm] O2 Sat by Pulse Oximetry 96 Oxygen Delivery Method Room Air Oxygen Flow Rate 2 FIO2% 12/06/22 09:00 12/06/22 09:15 12/06/22 09:30 Temperature Pulse Rate 80 72 87 Pulse Rate [Apical] Respiratory Rate 13 18 22 Blood Pressure Blood Pressure [Right Arm] O2 Sat by Pulse Oximetry 92 L 92 L 96 Oxygen Delivery Method Oxygen Flow Rate FIO2% 12/06/22 09:45 12/06/22 10:02 12/06/22 10:15 Temperature Pulse Rate 81 91 H 73 Pulse Rate [Apical] Respiratory Rate 12 9 L Blood Pressure Blood Pressure [Right Arm] O2 Sat by Pulse Oximetry 94 L 95 Oxygen Delivery Method Oxygen Flow Rate FIO2% 12/06/22 10:30 12/06/22 10:45 12/06/22 11:00 Temperature Pulse Rate 71 77 73 Pulse Rate [Apical] Respiratory Rate 12 18 14 Blood Pressure Blood Pressure [Right Arm] O2 Sat by Pulse Oximetry 91 L 96 97 Oxygen Delivery Method Oxygen Flow Rate FIO2% 12/06/22 11:15 12/06/22 11:30 12/06/22 11:45 Temperature Pulse Rate 67 72 65 Pulse Rate [Apical] Respiratory Rate 10 L 21 10 L Blood Pressure Blood Pressure [Right Arm] O2 Sat by Pulse Oximetry 97 98 100 Oxygen Delivery Method Oxygen Flow Rate FIO2% 12/06/22 12:00 12/06/22 12:15 12/06/22 12:30 Temperature Pulse Rate 65 66 79 Pulse Rate [Apical] Respiratory Rate 9 L 12 25 H Blood Pressure Blood Pressure [Right Arm] O2 Sat by Pulse Oximetry 100 97 95 Oxygen Delivery Method Oxygen Flow Rate FIO2% 12/06/22 12:45 12/06/22 13:00 12/06/22 13:15 Temperature Pulse Rate 76 73 74 Pulse Rate [Apical] Respiratory Rate 18 13 17 Blood Pressure Blood Pressure [Right Arm] O2 Sat by Pulse Oximetry 96 97 93 L Oxygen Delivery Method Oxygen Flow Rate FIO2% 12/06/22 13:30 12/06/22 13:45 12/06/22 13:47 Temperature Pulse Rate 76 72 79 Pulse Rate [Apical] Respiratory Rate 16 12 17 Blood Pressure Blood Pressure [Right Arm] O2 Sat by Pulse Oximetry 92 L 95 96 Oxygen Delivery Method Oxygen Flow Rate FIO2% 12/06/22 13:47 12/06/22 14:44 12/06/22 14:45 Temperature Pulse Rate 81 Pulse Rate [Apical] Respiratory Rate Blood Pressure 141/78 180/86 Blood Pressure [Right Arm] O2 Sat by Pulse Oximetry 99 Oxygen Delivery Method Oxygen Flow Rate FIO2% 12/06/22 14:45 12/06/22 15:00 12/06/22 15:00 Temperature Pulse Rate 81 75 Pulse Rate [Apical] Respiratory Rate 17 10 L Blood Pressure 181/86 Blood Pressure [Right Arm] O2 Sat by Pulse Oximetry 97 95 Oxygen Delivery Method Oxygen Flow Rate FIO2% 12/06/22 15:15 12/06/22 15:29 12/06/22 15:29 Temperature Pulse Rate 73 82 Pulse Rate [Apical] Respiratory Rate 16 19 Blood Pressure 189/97 Blood Pressure [Right Arm] O2 Sat by Pulse Oximetry 95 99 Oxygen Delivery Method Oxygen Flow Rate FIO2% 12/06/22 15:30 12/06/22 15:45 12/06/22 16:00 Temperature Pulse Rate 85 73 Pulse Rate [Apical] Respiratory Rate 21 16 Blood Pressure 222/99 Blood Pressure [Right Arm] O2 Sat by Pulse Oximetry 99 98 Oxygen Delivery Method Oxygen Flow Rate FIO2% 12/06/22 16:00 12/06/22 16:04 12/06/22 16:04 Temperature Pulse Rate 68 84 Pulse Rate [Apical] Respiratory Rate 16 22 Blood Pressure 213/93 Blood Pressure [Right Arm] O2 Sat by Pulse Oximetry 95 99 Oxygen Delivery Method Oxygen Flow Rate FIO2% 12/06/22 16:05 12/06/22 16:05 12/06/22 16:15 Temperature Pulse Rate 80 79 Pulse Rate [Apical] Respiratory Rate 12 11 L Blood Pressure 213/99 Blood Pressure [Right Arm] O2 Sat by Pulse Oximetry 98 98 Oxygen Delivery Method Oxygen Flow Rate FIO2% 12/06/22 16:21 12/06/22 16:21 12/06/22 16:30 Temperature Pulse Rate 85 83 Pulse Rate [Apical] Respiratory Rate 14 25 H Blood Pressure 198/83 Blood Pressure [Right Arm] O2 Sat by Pulse Oximetry 99 96 Oxygen Delivery Method Oxygen Flow Rate FIO2% 12/06/22 16:45 12/06/22 17:00 12/06/22 17:00 Temperature Pulse Rate 76 70 Pulse Rate [Apical] Respiratory Rate 15 14 Blood Pressure 125/60 Blood Pressure [Right Arm] O2 Sat by Pulse Oximetry 94 L 96 Oxygen Delivery Method Oxygen Flow Rate FIO2% 12/06/22 17:15 12/06/22 17:30 12/06/22 21:02 Temperature Pulse Rate 74 68 87 Pulse Rate [Apical] Respiratory Rate 15 18 Blood Pressure Blood Pressure [Right Arm] O2 Sat by Pulse Oximetry 97 95 98 Oxygen Delivery Method Oxygen Flow Rate FIO2% 12/06/22 21:02 12/06/22 19:00 12/06/22 19:00 Temperature Pulse Rate 76 Pulse Rate [Apical] Respiratory Rate 22 Blood Pressure 133/65 Blood Pressure [Right Arm] O2 Sat by Pulse Oximetry 94 L Oxygen Delivery Method Nasal Cannula Nasal Cannula Nasal Cannula Oxygen Flow Rate 2 3 3 FIO2% 12/06/22 20:00 12/06/22 21:00 12/06/22 22:00 Temperature 99.5 F Pulse Rate 78 85 93 H Pulse Rate [Apical] Respiratory Rate 13 18 13 Blood Pressure 162/81 147/75 111/58 Blood Pressure [Right Arm] O2 Sat by Pulse Oximetry 97 92 L 94 L Oxygen Delivery Method Nasal Cannula Nasal Cannula Nasal Cannula Oxygen Flow Rate 3 3 3 FIO2% 12/06/22 22:28 12/06/22 23:00 12/07/22 00:00 Temperature 98.9 F Pulse Rate 82 74 Pulse Rate [Apical] Respiratory Rate 14 16 14 Blood Pressure 103/56 90/47 Blood Pressure [Right Arm] O2 Sat by Pulse Oximetry 96 96 Oxygen Delivery Method Nasal Cannula Nasal Cannula Nasal Cannula Oxygen Flow Rate 3 3 3 FIO2% 12/07/22 01:00 12/07/22 02:00 12/07/22 03:00 Temperature Pulse Rate 75 86 89 Pulse Rate [Apical] Respiratory Rate 13 16 14 Blood Pressure 91/45 103/58 102/53 Blood Pressure [Right Arm] O2 Sat by Pulse Oximetry 92 L 91 L 92 L Oxygen Delivery Method Nasal Cannula Nasal Cannula Nasal Cannula Oxygen Flow Rate 3 3 3 FIO2% 12/07/22 04:00 12/07/22 05:00 12/07/22 06:00 Temperature 98.4 F Pulse Rate 89 85 92 H Pulse Rate [Apical] Respiratory Rate 16 14 13 Blood Pressure 99/57 98/55 103/59 Blood Pressure [Right Arm] O2 Sat by Pulse Oximetry 93 L 95 Oxygen Delivery Method Nasal Cannula Nasal Cannula Oxygen Flow Rate 3 3 FIO2% 12/07/22 08:27 12/07/22 08:28 12/07/22 07:00 Temperature Pulse Rate 85 Pulse Rate [Apical] Respiratory Rate 13 Blood Pressure Blood Pressure [Right Arm] O2 Sat by Pulse Oximetry 95 Oxygen Delivery Method Room Air Room Air Oxygen Flow Rate 2 FIO2% 12/07/22 03:00 12/07/22 03:15 12/07/22 03:30 Temperature Pulse Rate 89 86 88 Pulse Rate [Apical] Respiratory Rate Blood Pressure Blood Pressure [Right Arm] O2 Sat by Pulse Oximetry Oxygen Delivery Method Oxygen Flow Rate FIO2% 12/07/22 03:45 12/07/22 04:00 12/07/22 04:00 Temperature Pulse Rate 88 89 Pulse Rate [Apical] Respiratory Rate Blood Pressure 99/57 Blood Pressure [Right Arm] O2 Sat by Pulse Oximetry Oxygen Delivery Method Oxygen Flow Rate FIO2% 12/07/22 04:15 12/07/22 04:30 12/07/22 04:45 Temperature Pulse Rate 90 85 87 Pulse Rate [Apical] Respiratory Rate 12 15 Blood Pressure Blood Pressure [Right Arm] O2 Sat by Pulse Oximetry Oxygen Delivery Method Oxygen Flow Rate FIO2% 12/07/22 05:00 12/07/22 05:00 12/07/22 05:09 Temperature Pulse Rate 84 84 Pulse Rate [Apical] Respiratory Rate 13 14 Blood Pressure 73/37 Blood Pressure [Right Arm] O2 Sat by Pulse Oximetry Oxygen Delivery Method Oxygen Flow Rate FIO2% 12/07/22 05:09 12/07/22 05:11 12/07/22 05:11 Temperature Pulse Rate 95 H Pulse Rate [Apical] Respiratory Rate 15 Blood Pressure 76/39 98/55 Blood Pressure [Right Arm] O2 Sat by Pulse Oximetry Oxygen Delivery Method Oxygen Flow Rate FIO2% 12/07/22 05:15 12/07/22 05:30 12/07/22 05:45 Temperature Pulse Rate 87 85 89 Pulse Rate [Apical] Respiratory Rate 10 L 17 11 L Blood Pressure Blood Pressure [Right Arm] O2 Sat by Pulse Oximetry Oxygen Delivery Method Oxygen Flow Rate FIO2% 12/07/22 06:00 12/07/22 06:00 12/07/22 06:15 Temperature Pulse Rate 92 H 91 H Pulse Rate [Apical] Respiratory Rate 14 15 Blood Pressure 103/59 Blood Pressure [Right Arm] O2 Sat by Pulse Oximetry Oxygen Delivery Method Oxygen Flow Rate FIO2% 12/07/22 06:30 12/07/22 06:45 12/07/22 07:00 Temperature Pulse Rate 91 H 90 91 H Pulse Rate [Apical] Respiratory Rate 13 12 12 Blood Pressure Blood Pressure [Right Arm] O2 Sat by Pulse Oximetry Oxygen Delivery Method Oxygen Flow Rate FIO2% 12/07/22 07:01 12/07/22 07:01 12/07/22 07:15 Temperature Pulse Rate 90 95 H Pulse Rate [Apical] Respiratory Rate 10 L 19 Blood Pressure 113/57 Blood Pressure [Right Arm] O2 Sat by Pulse Oximetry Oxygen Delivery Method Oxygen Flow Rate FIO2% 12/07/22 07:30 12/07/22 07:45 12/07/22 08:00 Temperature 97.8 F Pulse Rate 92 H 90 102 H Pulse Rate [Apical] Respiratory Rate 15 13 26 H Blood Pressure Blood Pressure [Right Arm] O2 Sat by Pulse Oximetry Oxygen Delivery Method Oxygen Flow Rate FIO2% 12/07/22 08:01 12/07/22 08:01 12/07/22 08:15 Temperature Pulse Rate 104 H 101 H Pulse Rate [Apical] Respiratory Rate 42 H 14 Blood Pressure 132/61 Blood Pressure [Right Arm] O2 Sat by Pulse Oximetry Oxygen Delivery Method Oxygen Flow Rate FIO2% 12/07/22 08:30 12/07/22 08:45 12/07/22 09:00 Temperature Pulse Rate 92 H 91 H Pulse Rate [Apical] Respiratory Rate 13 13 Blood Pressure 123/53 Blood Pressure [Right Arm] O2 Sat by Pulse Oximetry Oxygen Delivery Method Oxygen Flow Rate FIO2% 12/07/22 09:00 12/07/22 09:15 12/07/22 09:32 Temperature Pulse Rate 98 H 101 H 113 H Pulse Rate [Apical] Respiratory Rate 17 19 Blood Pressure Blood Pressure [Right Arm] O2 Sat by Pulse Oximetry 95 Oxygen Delivery Method Oxygen Flow Rate FIO2% 12/07/22 09:45 12/07/22 10:00 12/07/22 10:00 Temperature Pulse Rate 102 H 98 H Pulse Rate [Apical] Respiratory Rate 11 L 13 Blood Pressure 93/51 Blood Pressure [Right Arm] O2 Sat by Pulse Oximetry 93 L 91 L Oxygen Delivery Method Oxygen Flow Rate FIO2% 12/07/22 10:15 12/07/22 10:30 12/07/22 10:45 Temperature Pulse Rate 93 H 89 95 H Pulse Rate [Apical] Respiratory Rate 13 14 9 L Blood Pressure Blood Pressure [Right Arm] O2 Sat by Pulse Oximetry 91 L 95 92 L Oxygen Delivery Method Oxygen Flow Rate FIO2% 12/07/22 11:00 12/07/22 11:00 12/07/22 11:15 Temperature Pulse Rate 98 H 98 H Pulse Rate [Apical] Respiratory Rate 25 H 11 L Blood Pressure 97/53 Blood Pressure [Right Arm] O2 Sat by Pulse Oximetry 91 L 93 L Oxygen Delivery Method Oxygen Flow Rate FIO2% 12/07/22 11:30 12/07/22 11:45 12/07/22 12:17 Temperature Pulse Rate 99 H 90 100 H Pulse Rate [Apical] Respiratory Rate 25 H 14 Blood Pressure Blood Pressure [Right Arm] O2 Sat by Pulse Oximetry 92 L 90 L 93 L Oxygen Delivery Method Oxygen Flow Rate FIO2% 12/07/22 12:00 12/07/22 12:01 12/07/22 12:01 Temperature Pulse Rate 99 H 96 H Pulse Rate [Apical] Respiratory Rate 33 H 16 Blood Pressure 88/43 Blood Pressure [Right Arm] O2 Sat by Pulse Oximetry 92 L 94 L Oxygen Delivery Method Oxygen Flow Rate FIO2% 12/07/22 12:15 12/07/22 12:30 12/07/22 12:45 Temperature Pulse Rate 99 H 92 H 94 H Pulse Rate [Apical] Respiratory Rate 15 18 13 Blood Pressure Blood Pressure [Right Arm] O2 Sat by Pulse Oximetry 91 L 98 92 L Oxygen Delivery Method Oxygen Flow Rate FIO2% 12/07/22 13:00 12/07/22 13:00 12/07/22 13:15 Temperature Pulse Rate 100 H 101 H Pulse Rate [Apical] Respiratory Rate 18 17 Blood Pressure 121/72 Blood Pressure [Right Arm] O2 Sat by Pulse Oximetry 94 L 92 L Oxygen Delivery Method Oxygen Flow Rate FIO2% 12/07/22 13:30 12/07/22 13:45 12/07/22 14:00 Temperature Pulse Rate 95 H 94 H Pulse Rate [Apical] Respiratory Rate 13 17 Blood Pressure 94/58 Blood Pressure [Right Arm] O2 Sat by Pulse Oximetry 94 L 93 L Oxygen Delivery Method Oxygen Flow Rate FIO2% 12/07/22 14:00 12/07/22 14:15 12/07/22 14:30 Temperature Pulse Rate 92 H 91 H 92 H Pulse Rate [Apical] Respiratory Rate 18 20 15 Blood Pressure Blood Pressure [Right Arm] O2 Sat by Pulse Oximetry 95 96 93 L Oxygen Delivery Method Oxygen Flow Rate FIO2% 12/07/22 14:45 12/07/22 15:00 12/07/22 15:00 Temperature Pulse Rate 96 H 94 H Pulse Rate [Apical] Respiratory Rate 18 18 Blood Pressure 120/60 Blood Pressure [Right Arm] O2 Sat by Pulse Oximetry 91 L 93 L Oxygen Delivery Method Oxygen Flow Rate FIO2% 12/07/22 15:15 12/07/22 15:30 12/07/22 15:45 Temperature Pulse Rate 93 H 92 H 87 Pulse Rate [Apical] Respiratory Rate 17 16 13 Blood Pressure Blood Pressure [Right Arm] O2 Sat by Pulse Oximetry 94 L 93 L 90 L Oxygen Delivery Method Oxygen Flow Rate FIO2% 12/07/22 16:00 12/07/22 16:00 12/07/22 16:15 Temperature Pulse Rate 84 84 Pulse Rate [Apical] Respiratory Rate 15 14 Blood Pressure 110/55 Blood Pressure [Right Arm] O2 Sat by Pulse Oximetry 88 L 87 L Oxygen Delivery Method Oxygen Flow Rate FIO2% 12/07/22 16:30 12/07/22 16:45 12/07/22 17:00 Temperature Pulse Rate 86 87 Pulse Rate [Apical] Respiratory Rate 15 16 Blood Pressure 129/62 Blood Pressure [Right Arm] O2 Sat by Pulse Oximetry 86 L 87 L Oxygen Delivery Method Oxygen Flow Rate FIO2% 12/07/22 17:00 12/07/22 17:15 12/07/22 17:30 Temperature Pulse Rate 91 H 93 H 92 H Pulse Rate [Apical] Respiratory Rate 13 13 14 Blood Pressure Blood Pressure [Right Arm] O2 Sat by Pulse Oximetry 88 L 89 L 88 L Oxygen Delivery Method Oxygen Flow Rate FIO2% 12/07/22 17:45 12/07/22 18:00 12/07/22 18:01 Temperature Pulse Rate 94 H 104 H Pulse Rate [Apical] Respiratory Rate 14 18 Blood Pressure 194/93 Blood Pressure [Right Arm] O2 Sat by Pulse Oximetry 90 L 95 Oxygen Delivery Method Oxygen Flow Rate FIO2% 12/07/22 18:01 12/07/22 18:15 12/07/22 20:14 Temperature Pulse Rate 106 H 104 H Pulse Rate [Apical] Respiratory Rate 22 22 Blood Pressure Blood Pressure [Right Arm] O2 Sat by Pulse Oximetry 95 94 L Oxygen Delivery Method Nasal Cannula Oxygen Flow Rate 2 FIO2% 28 12/07/22 20:14 12/07/22 21:28 12/07/22 19:00 Temperature Pulse Rate 104 H Pulse Rate [Apical] Respiratory Rate 22 Blood Pressure Blood Pressure [Right Arm] O2 Sat by Pulse Oximetry 92 L Oxygen Delivery Method Room Air Oxygen Flow Rate FIO2% 12/07/22 19:00 12/07/22 20:00 12/07/22 21:00 Temperature 98.5 F Pulse Rate 96 H 103 H 112 H Pulse Rate [Apical] Respiratory Rate 18 26 H 20 Blood Pressure 138/66 177/81 158/63 Blood Pressure [Right Arm] O2 Sat by Pulse Oximetry 90 L 89 L 90 L Oxygen Delivery Method Oxygen Flow Rate FIO2% 12/07/22 22:00 12/07/22 23:00 12/08/22 00:22 Temperature Pulse Rate 100 H 94 H Pulse Rate [Apical] Respiratory Rate 12 13 Blood Pressure 159/72 139/62 Blood Pressure [Right Arm] O2 Sat by Pulse Oximetry 90 L 91 L Oxygen Delivery Method Nasal Cannula Oxygen Flow Rate 2 FIO2% 28 12/07/22 22:28 12/08/22 08:28 12/08/22 07:00 Temperature Pulse Rate Pulse Rate [Apical] Respiratory Rate 22 Blood Pressure Blood Pressure [Right Arm] O2 Sat by Pulse Oximetry Oxygen Delivery Method Nasal Cannula Room Air Oxygen Flow Rate 2 FIO2% 28 12/08/22 08:00 Temperature 97.7 F Pulse Rate 77 Pulse Rate [Apical] Respiratory Rate 18 Blood Pressure 153/74 Blood Pressure [Right Arm] O2 Sat by Pulse Oximetry 97 Oxygen Delivery Method Oxygen Flow Rate FIO2% Labs: Laboratory Last Values WBC 7.8 X10^3/uL (3.6-10.0) 12/08/22 07:30 RBC 4.84 X10^6/uL (4.7-6.0) 12/08/22 07:30 Hgb 11.3 g/dL (13.5-18.0) L 12/08/22 07: Hct 35.1 % (42.0-54.0) L 12/08/22 07: MCV 72.5 fL (80.0-100.0) L 12/08/22 07: MCH 23.4 pg (27.0-34.0) L 12/08/22 07: MCHC 32.2 g/dL (33.0-35.0) L 12/08/22 07: RDW 19.0 % (11.6-16.5) H 12/08/22 07: Plt Count 205 X10^3/uL (150.0-450.0) 12/08/22 07: Plt Count Comment Adequate (ADEQUATE) 12/08/22: MPV 7.1 fL (7.4-11.0) L 12/08/22 07: Neut % (Auto) 87.8 % (42.0-75.0) H 12/08/22 07: Lymph % (Auto) 6.6 % (21.0-51.0) L 12/08/22 07: [place] % (Auto) 5.4 % (0.0-13.0) 12/08/22 07: Eos % (Auto) 0.0 % (0.9-2.9) L 12/08/22 07: Baso % (Auto) 0.2 % (0.2-1.0) 12/08/22 07:30 Neut # (Auto) 6.8 x10^3/uL (2.2-4.8) H 12/08/22 07:30 Lymph # (Auto) 0.5 X10^3/uL (1.3-2.9) L 12/08/22 07:30 [place] # (Auto) 0.4 x10^3/uL (0.3-0.8) 12/08/22 07: Eos # (Auto) 0.0 x10^3/uL (0.0-0.2) 12/08/22 07:30 Baso # (Auto) 0.0 X10^3/uL (0.0-0.1) 12/08/22 07: Absolute Nucleated RBC 0.1 /100WBC 12/08/22 07:30 Plt Morphology Comment Normal (NORMAL) 12/08/22 07:30 RBC Morphology Abnormal (NORMAL) 12/08/22 07:30 Hypochromasia 1+ A 12/08/22 07:30 Anisocytosis Slight A 12/08/22 07:30 Microcytosis Slight A 12/08/22 07:30 Tear Drop Cells Present 12/08/22 07:30 Ovalocytes Present 12/08/22 07:30 Schistocytes Slight A 12/07/22 04:50 D-Dimer 0.72 ug/ml (0.0-0.57) H 12/06/22 04:16 Sample Site Rb 12/06/22 11:41 ABG pH 7.460 (7.35-7.45) H 12/06/22 11:41 ABG pCO2 44.0 mmHg (35.0-45.0) 12/06/22 11:41 ABG pO2 80.0 mmHg (80.0-100.0) 12/06/22 11:41 ABG HCO3 31.3 mmol/L (22-26) H* 12/06/22 11:41 ABG O2 Saturation 96.0 % (90-100) 12/06/22 11:41 ABG Base Excess 6.6 mmol/L (-2.0-2.0) H 12/06/22 11:41 Patrick Test Pos 12/06/22 11:41 A-a Gradient 15.0 mmHg 12/06/22 11:41 FiO2 21.0 12/06/22 11:41 Blood Gas Comments Pt [facility] cdn 12/06/22 11:41 Sodium 135 mmol/L (136-145) L 12/08/22 07:30 Corrected Sodium 141 mmol/L (136-145) 12/08/22 07:30 Potassium 4.0 mmol/L (3.5-5.1) 12/08/22 07:30 Chloride 100 mmol/L (98-107) 12/08/22 07:30 Carbon Dioxide 28.7 mmol/L (21-32) 12/08/22 07:30 BUN 25 mg/dL (7-18) H 12/08/22 07:30 Creatinine 1.02 mg/dL (0.70-1.30) 12/08/22 07:30 Est GFR (MDRD) Af Amer > 60 (>60) 12/08/22 07:30 Est GFR (MDRD) Non-Af > 60 (>60) 12/08/22 07:30 Glucose 370 mg/dL (65-99) H 12/08/22 07:30 POC Glucose (mg/dL) 483 mg/dL (65-99) H 12/08/22 05:19 Lactic Acid 1.5 mmol/L (0.4-2.0) 12/05/22 15:26 Calcium 8.0 mg/dL (8.5-10.1) L 12/08/22 07:30 Corrected Calcium 9.1 mg/dL (8.5-10.1) 12/08/22 07:30 Total Bilirubin 0.20 mg/dL (0.2-1.0) 12/08/22 07:30 AST 113 Units/L (15-37) H 12/08/22 07:30 ALT 119 Units/L (12-78) H 12/08/22 07:30 Alkaline Phosphatase 62 Units/L (46-116) 12/08/22 07:30 Troponin I High Sens 11.2 ng/L (4.0-60.0) 12/06/22 21:10 Total Protein 6.2 g/dL (6.4-8.2) L 12/08/22 07:30 Albumin 2.6 g/dL (3.4-5.0) L 12/08/22 07:30 Globulin 3.6 g/dL (2.5-4.5) 12/08/22 07:30 Albumin/Globulin Ratio 0.7 Ratio (1.1-2.1) L 12/08/22 07:30 Lipase 53 Units/L (73-393) L 12/05/22 15:26 Specimen Type Clean catch urine 12/05/22 17:32 Urine Color Yellow (YELLOW) 12/05/22 17:32 Urine Appearance Clear (CLEAR) 12/05/22 17: Urine pH 5.0 (5.0 - 8.0) 12/05/22 17:32 Ur Specific [place] 1.015 (1.000-1.030) 12/05/22 17:32 Urine Protein 3+ (NEGATIVE) 12/05/22 17:32 Urine Glucose (UA) Negative (NEGATIVE) 12/05/22 17:32 Urine Ketones 2+ (NEGATIVE) 12/05/22 17:32 Urine Blood 1+ (NEGATIVE) 12/05/22 17:32 Urine Nitrite Negative (NEGATIVE) 12/05/22 17:32 Urine Bilirubin Negative (NEGATIVE) 12/05/22 17:32 Urine Urobilinogen Normal (NORMAL) 12/05/22 17:32 Ur Leukocyte Esterase Negative (NEGATIVE) 12/05/22 17:32 Urine RBC 3-5 /HPF (0-3) A 12/05/22 17:32 Urine WBC None seen /HPF (0-5) 12/05/22 17:32 Ur Squamous Epith Cells Rare /HPF (NEGATIVE) 12/05/22 17:32 Urine Bacteria Trace /HPF (NEGATIVE) 12/05/22 17:32 Urine Mucus Few /HPF (NEGATIVE) 12/05/22 17:32 Ur Culture Indicated? No/not indicated 12/05/22 17:32 SARS-CoV-2 (PCR) Negative (NEGATIVE) 12/05/22 15:29 Influenza Type A (PCR) Negative (NEGATIVE) 12/05/22 15:29 Influenza Type B (PCR) Negative (NEGATIVE) 12/05/22 15:29 RSV (PCR) Negative (NEGATIVE) 12/05/22 15:29 Resp Viral Panel (PCR) See scanned report 12/06/22 10:15 Reason For Visit: FAILED OUTPT ACUTE BRONCHITIS, SHORTNESS OF BREATH Discharge Diagnosis All Active Problems (Updated 12/06/22 @ 13:37 by NARCISO CHÁVEZ) Acute confusion (Acute) Acute constipation (Acute) Anemia, deficiency (Acute) Acute febrile illness (Acute) Altered mental status (Acute) Pneumonia (Acute) Sepsis due to urinary tract infection (Acute) Dizziness (Acute) Acute UTI (Acute) Pylephlebitis (Acute) Altered mental state (Acute) Rheumatoid aortitis (Acute) Diabetes (Acute) Acute dehydration (Acute) Ileus (Acute) Hypotension (Acute) Fever (Acute) Leukocytosis (Acute) Chronic gouty arthritis (Chronic) Type II diabetes mellitus, uncontrolled (Chronic) Osteoarthritis, multiple sites (Chronic) CAD (coronary artery disease) (Chronic) Benign essential HTN (Chronic) Hyperlipidemia (Chronic) DASHA (generalized anxiety disorder) (Chronic) GERD without esophagitis (Chronic) Plan of Treatment: Continue with present treatment and follow up plan. Pt is to keep follow up appointment as instructed and take medications as ordered. Discharge Medications Discharge Medications: nalbuphine [From [facility]] Allergy (Unknown, Verified 12/05/22 15:13) codeine Allergy (Verified 12/05/22 15:13) CONTINUE taking the following medications carvedilol 6.25 mg tablet 12.5 mg PO BID 12/05/22 [History] fluticasone propionate 50 mcg/actuation nasal spray,suspension 1 spray intranas al 2XD 12/05/22 [History] New Prescriptions azithromycin 250 mg tablet (Zithromax) 250 mg PO QDAY #4 tabs 12/08/22 [Rx] Discharge Disposition Discharge Disposition: Home Discharge Condition: Stable Discharge Plan Discharge Plan Hospital Course: Patient is a 72y/o male with a PMH of CAD, DM, HTN, OA, JOB and RA presented with URI symptoms that had been present for a few days. He reports having productive cough and congestion. He was seen outpatient and treated with Levaquin and steroids. His covid swab as negative. He continued to have worsening respiratory symptoms associated with body aches and fever. In the ER, COVID, Flu and RSV were all negative. He was initially placed on oxygen 2L via [place]. His d-dimer was elevated, CTA was negative for PE but did show bronchial wall thickening. He was started on IV antibiotics, nebs and pulmicort. His respiratory symptoms did improve. He was on room air and ambulating in the room. Respiratory panel was sent out and came back with Parainfluenza. Patient was adamant about going home as he was feeling better. Walk test showed good sats on room, patient did not qualify for home oxygen. He was stable for discharge and will f/u with PCP as scheduled. Patient Disposition: HOME, SELF-CARE Condition: Stable Health Concerns: Post Hospitalization: new medications and changes needed to prevent readmission or further decline. Pt educated and given instructions on all concerns. Plan of Treatment: Continue with present treatment and follow up plan. Pt is to keep follow up appointment as instructed and take medications as ordered. Prescriptions: New azithromycin [Zithromax] 250 mg Tablet 250 mg PO QDAY Qty: 4 0RF Rx Instructions: start on day 2 of therapy Continued fluticasone propionate 50 mcg/actuation spray,suspension 1 spray INTRANASAL 2XD carvedilol 6.25 mg tablet 12.5 mg PO BID gabapentin 600 mg Tablet 600 mg PO BID clopidogrel [Plavix] 75 mg Tablet 75 mg PO DAILY aspirin [Aspir-81] 81 mg Tablet,Delayed Release (Dr/Ec) 81 mg PO DAILY alprazolam [Xanax] 0.5 mg Tablet 0.5 mg PO HS oxycodone-acetaminophen 10-325 mg Tablet 1 tab PO BID pantoprazole 40 mg Tablet,Delayed Release (Dr/Ec) 40 mg PO DAILY docusate sodium [Stool Softener] 100 mg Capsule 200 mg PO BID folic acid 1 mg Tablet 1 mg PO DAILY allopurinol 300 mg Tablet 300 mg PO DAILY metformin 500 mg Tablet Extended Release 24 Hr 500 mg PO DAILY rosuvastatin 40 mg Tablet 40 mg PO HS Glucos Chond Cplx Advanced 750 mg-100 mg- 125 mg-1.65 mg Tablet 1 tab PO BID One Daily For Men 50 Plus Adv 400-600-120 mcg-mcg-mg Tablet 1 tab PO DAILY isosorbide mononitrate 20 mg Tablet 60 mg PO BID insulin asp prt-insulin aspart [Novolog Mix 70-30 U-100 Insuln] 100 unit/mL (70-30) Solution See Rx Instructions .ROUTE .COMPLEX Rx Instructions: PT USES SLIDING SCALE, BUT IS UNSURE OF SLIDING SCALE AT THIS TIME. metformin 500 mg Tablet 250 mg PO HS fentanyl 75 mcg/hr patch 72 hour 75 mcg transdermal Q72H Label Comments: [NO ORIGINAL SIG] ezetimibe 10 mg tablet 10 mg PO HS Discontinued methylprednisolone 4 mg tablet 1 tab PO USEASDIRECTD levofloxacin 500 mg tablet 1 tab PO BID Follow ups/Referrals Follow ups/Referrals: ASYA MARMOLEJO [Primary Care Provider] - 3 days Instructions Instructions: Continuous Glucose Monitoring, Adult, Acute Bronchitis, Adult, [id number], Type 2 Diabetes Mellitus, Self-Care, Adult, [facility] Stand Alone Forms: Excuse From Work or School
== END 2022-12-08 11:36 | disposition home or self-care (01) | DRG 195 ==
LOC: ICU 15:07 → ER 15:07 → ICU 19:45
PROVIDERS: ADMIT Obstetrics & Gynecology Obstetrics; ATTEND Internal Medicine
DX: R26.89 Other abnormalities of gait and mobility; R53.1 Weakness; E11.65 Type 2 diabetes mellitus with hyperglycemia; B34.8 Other viral infections of unspecified site; R41.82 Altered mental status, unspecified; J18.8 Other pneumonia, unspecified organism; R06.02 Shortness of breath; Z20.822 Contact with and (suspected) exposure to COVID-19; M15.9 Polyosteoarthritis, unspecified; K21.9 Gastro-esophageal reflux disease without esophagitis; I25.10 Atherosclerotic heart disease of native coronary artery without angina pectoris